=== PATIENT | female | born 1980 | race Caucasian/White ===

== ENCOUNTER 2017-07-26 01:12 | Emergency (ER) | payer MEDICAID, SELFPAY ==
[2017-07-26 01:14] VITALS: BP 154/97; PULSE 112; RESP 18; TEMP 36.8; O2SAT 99; BMI 42.5
--- NOTE | 2017-07-26 01:38 | ED.DCSUM_ITS ---
- ER Visit Summary Date of Service: 07/26/17 Chief Complaint: [] Eye discharge History of Present Illness: The patient is a 36 F [] complaining of right eye discharge beginning yesterday. Denies visual changes. Denies foreign object sensation. Denies injury to the eye. She is concerned that she has pinkeye. Physical Examination: [] HEENT reveals green-yellow discharge from the medial canthus consistent with bacterial conjunctivitis. Remainder of exam is unremarkable. Test Results: [] None. Emergency Department Course and Treatment: [] Patient provided bacitracin ophthalmic ointment in the emergency department to apply 3 times a day for 3 days. Treatment Plan: [] Follow-up with PCP. Disposition: [] Discharge, stable. Impression: [] Conjunctivitis This note was generated with [employer] dictation software. It may contain incorrect words, spelling, and punctuation that were not noted in review of the chart prior to signing ED Disposition - Plan for ED Patient: Chief Complaint: Eye Problem Referrals: Sneha Briceno DO [Primary Care Provider] -
--- NOTE | 2017-07-26 01:38 | ED.DEP ---
ED Disposition - Plan for ED Patient: Disposition: Home or Assisted Living Chief Complaint: Eye Problem Instructions: ED Conjunctivitis Bacterial Referrals: Sneha Briceno DO [Primary Care Provider] -
[2017-07-26 01:46] VITALS: RESP 16
== END 2017-07-26 01:56 | disposition home or self-care (01) ==
PROVIDERS: Emergency Provider Emergency Medicine; Family Provider Family Medicine; PCP Family Medicine
DX: H10.31 Unspecified acute conjunctivitis, right eye (principal); I10 Essential (primary) hypertension; E11.9 Type 2 diabetes mellitus without complications; Z79.4 Long term (current) use of insulin; Z79.899 Other long term (current) drug therapy
CPT/HCPCS: 99282

== ENCOUNTER 2017-08-02 01:32 | Emergency (ER) | payer MEDICAID, SELFPAY ==
[2017-08-02 01:33] VITALS: BP 146/89; PULSE 101; RESP 16; TEMP 36.9; O2SAT 98; BMI 43.8
--- NOTE | 2017-08-02 02:08 | ED.DCSUM_ITS ---
- ER Visit Summary Date of Service: 08/02/17 Chief Complaint: [Sore throat] History of Present Illness: The patient is a 36 F [presents to the emergency department with sore throat ?1 week. Patient initially started with a cough and conjunctivitis. Patient states she was seen in the emergency department a week ago and started on antibiotic eyedrops for conjunctivitis. Patient continues to complain of throat pain especially on the right side. Patient has pain with eating. She denies any fever. Cough is nonproductive. Patient denies sick contacts.] Physical Examination: [HEENT-PERRLA, EOMI. Cranial nerves II through XII grossly intact. TMs clear. Mucous membranes moist. Mild anterior cervical adenopathy. Minimal pharyngeal erythema. Tonsils are not enlarged and there are no exudates. Cardiovascular-regular rate and rhythm without murmur or ectopy Lungs-clear to auscultation, chest wall stable without crepitus or subcu emphysema Abdomen-normoactive bowel sounds, soft, nontender, no rebound or rigidity, no peritoneal signs. Extremities-intact ?4, normal range of motion, normal pulses, atraumatic] Test Results: Rapid strep screen was negative] Emergency Department Course and Treatment: [Patient will be dispensed for Tavernier for pain] Treatment Plan: [Advised use salt water gargles and ibuprofen for discomfort] Disposition: [Discharged to home in stable condition. Patient advised to follow -up with her primary care physician within the next 3-5 days.] Impression: [Pharyngitis-suspect viral] This note was generated with [employer] dictation software. It may contain incorrect words, spelling, and punctuation that were not noted in review of the chart prior to signing ED Disposition - Plan for ED Patient: Chief Complaint: Sore Throat Referrals: Sneha Briceno DO [Primary Care Provider] -
--- NOTE | 2017-08-02 02:08 | ED.DEP ---
ED Disposition - Plan for ED Patient: Chief Complaint: Sore Throat Instructions: ED Pharyngitis Viral Report Pending Referrals: Sneha Briceno DO [Primary Care Provider] - 3-5 Days
[2017-08-02 02:18] VITALS: BP 146/89; PULSE 101; RESP 16; TEMP 36.9; O2SAT 98
[2017-08-02] MEDS: HYDROcodone Bitartrate/Apap 5/325 Tablet PO (02:18)
== END 2017-08-02 02:21 | disposition home or self-care (01) ==
PROVIDERS: Emergency Provider Emergency Medicine; Family Provider Family Medicine; PCP Family Medicine
DX: J02.9 Acute pharyngitis, unspecified (principal); E11.9 Type 2 diabetes mellitus without complications; Z79.4 Long term (current) use of insulin
CPT/HCPCS: 87880; 99282

== ENCOUNTER 2017-08-25 12:20 | Emergency (ER) | payer MEDICAID, SELFPAY ==
[2017-08-25 12:21] VITALS: BP 151/105; PULSE 115; RESP 16; TEMP 36.8; O2SAT 97; BMI 43.0
--- NOTE | 2017-08-25 12:41 | ED.VISSUMM ---
- ER Visit Summary Date of Service: 08/25/17 Chief Complaint: Left lower back pain History of Present Illness: The patient is a 36 F who presents because of left lower back pain for 2 weeks. There is no history of trauma. She complains of pain radiating down the left leg. She did not answer promptly with regards to if the pain radiated anteriorly, laterally, medially or posteriorly. The pain apparently goes to the midcalf. She denies quadricep weakness or footdrop. She denies bowel bladder dysfunction. She denies saddle paresthesia or anesthesia. She was seen in urgent care last week and placed on ibuprofen and Flexeril without improvement. Pain is worse with movement. Other than prior back strain she has no history of back problems. She denies any night sweats. She denies weight loss. Physical Examination: Vitals remarkable for blood pressure 151/105 heart rate 115. BMI is 43. She appears upset at the fact that I asked her as many questions as I did. HEENT exam is unremarkable. Heart is regular without murmur, gallop or rub. S1 and S2 are normal. Lungs are clear to auscultation with good movement of air bilaterally. Examination of low back reveals a tattoo. There is no tenderness. There is no lesions. Straight leg test is negative. Crossover test is negative. Patella and ankle reflex are 1+. EHL is intact. No Babinski or clonus was noted bilaterally. DP pulses palpable bilateral. Patient gait was observed. There is no foot drop. He is able to walk on her heels and toes. Test Results: None are indicated Emergency Department Course and Treatment: Anti-inflammatories since there is no contraindication Treatment Plan: Rest, ice anti-inflammatory and weight reduction Disposition: Discharged to home to follow-up with PCP Impression: Left lower back pain a muscular etiology/muscle strain This note was generated with [employer] dictation software. It may contain incorrect words, spelling, and punctuation that were not noted in review of the chart prior to signing ED Disposition - Plan for ED Patient: Disposition: Home or Assisted Living Chief Complaint: Back Instructions: ED Sprain Strain Lumbar, ED Hypertension Poss Prescriptions: Naproxen [Naprosyn] 500 mg PO BID #14 tab Referrals: Senha Briceno DO [Primary Care Provider] - 1-2 Weeks Additional Instructions: Your blood pressure is elevated and you need to have your blood pressure reassessed in 1-2 weeks.
[2017-08-25 12:55] VITALS: BP 155/106
== END 2017-08-25 13:05 | disposition home or self-care (01) ==
PROVIDERS: Emergency Provider Emergency Medicine; Family Provider Family Medicine; PCP Family Medicine
DX: S39.012A Strain of muscle, fascia and tendon of lower back, initial encounter (principal); X58.XXXA Exposure to other specified factors, initial encounter; Y93.9 Activity, unspecified; Y92.9 Unspecified place or not applicable; R03.0 Elevated blood-pressure reading, without diagnosis of hypertension; E11.9 Type 2 diabetes mellitus without complications; E66.9 Obesity, unspecified; Z68.41 Body mass index [BMI] 40.0-44.9, adult; Z79.4 Long term (current) use of insulin; Z79.899 Other long term (current) drug therapy
CPT/HCPCS: 99282

== ENCOUNTER 2017-10-09 21:15 | Emergency (ER) | payer MEDICAID, SELFPAY ==
--- NOTE | 2017-10-09 13:36 | EKG12_ITS ---
Test Reason : CP Blood Pressure : / mmHG Vent. Rate : 107 BPM Atrial Rate : 107 BPM P-R Int : 154 ms QRS Dur : 082 ms QT Int : 340 ms P-R-T Axes : 031 007 043 degrees QTc Int : 453 ms Sinus tachycardia Otherwise normal ECG Confirmed by TOÑO HARRIS, YOSELIN ([id number]), editor continuity and script MIESHA WOLF ([id number]) on 10/15/2017 5:27:10 PM Referred By: BRANDON/AIDEN Confirmed By:YOSELIN LUNDBERG MD
--- NOTE | 2017-10-09 21:15 | DT_ITS ---
This patient was seen during an EMR downtime October 06, 2017 - October 13, 2017. This patient may have a combination of paper and electronic documentation or all paper documentation. All documentation is viewable within the e-chart portion of [employer] for each patient visit.
--- NOTE | 2017-10-09 21:49 | RAD_ITS ---
STUDY: X-RAY CHEST REASON FOR EXAM: Female, 36 years old. Having chest pains on and off x 1week TECHNIQUE: Single AP portable view of the chest. COMPARISON: None. FINDINGS: The lungs are clear and expanded. There is no demonstrated pleural abnormality. Normal size heart. Normal mediastinum and leesa. Normal visualized pulmonary arteries. Normal visualized aortic arch and descending thoracic aorta. Normal visualized thoracic spine. Normal visualized ribs, clavicles, and shoulders. There is no demonstrated abnormality of the visualized soft tissue structures of the upper abdomen. IMPRESSION: Normal x-ray examination of the chest. Electronically Signed: Dipesh Lewis MD at 21:59 EDT , Service support , STUDY: X-RAY - ABDOMEN REASON FOR EXAM: Female, 36 years old. Having chest pains on and off x 1week TECHNIQUE: Single AP view of the abdomen -upper abdomen. COMPARISON: None. FINDINGS: Normal visualized lung bases. There is an unremarkable bowel gas pattern. There is no demonstrated free abdominal air. The visualized liver, spleen and kidneys are grossly normal in size and morphology. Normal soft tissue structures. Normal visualized osseous structures. RAD/Chest PA and Lateral IMPRESSION: Normal x-ray examination of the abdomen Electronically Signed: Dipesh Lewis MD at 22:00 EDT , Service support ,
[2017-10-15 09:49] LABS: Hematocrit 41.2 % (37-47); Hemoglobin 13.6 g/dl (12.0-15.0); Mean Corpuscular Hgb 26.6 pg (27.0-32.0); Mean Corpuscular Volume 80.5 fL (81-99); Mean Platelet Vol. 9.8 fl (6.2-12.0); Neutrophil % 42.9 % (47-70); POSITIVE COUNT NO; POSITIVE DIFFERENTIAL NO; POSITIVE MORPHOLOGY NO; Platelet Count 207 K/mm3 (150-450); RBC Distribution Width CV 14.1 % (11.6-14.6); RBC Distribution Width SD 41.3 fl (35.1-43.9); Red Blood Count 5.12 M/mm3 (4.2-5.4); White Blood Count 7.3 K/mm3 (4.4-11.0)
[2017-10-15 09:50] LABS: Absolute Lymphocyte Count 3.56 X10^3/ul (0.83-4.51); Absolute Neutrophil Count 3.1 X10^3/uL (2.0-7.7); Basophil# 0.01 X10^3/uL; Basophil% 0.1 % (0-1); Eosinophil# 0.05 X10^3/uL; Eosinophils% 0.7 % (0-5); Lymphocyte # 3.56 X10^3/ul (4.0); Monocyte% 6.9 % (0-10); Neutrophil # 3.12 X10^3/uL (2.7-7.7)
[2017-10-15 10:23] LABS: Anion Gap 10 (5-15); BUN 9 mg/dL (7-18); BUN/Creat Ratio 15.8 RATIO (10-20); Calcium,Total 8.7 mg/dL (8.5-10.1); Chloride 106 mmol/L (98-107); Creatinine, Serum 0.57 mg/dL (0.55-1.02); EST Glomerular Filtration Rate 129 mL/min (>60); Est Glom Filt Rate - Afr Amer 156 mL/min (>60); Glucose 153 mg/dL (74-106); Potassium 3.9 mmol/L (3.5-5.1); Sodium Level 142 mmol/L (136-145)
== END 2017-10-09 23:30 | disposition home or self-care (01) ==
LOC: ED 10-14 11:16
PROVIDERS: Emergency Provider Emergency Medicine; Family Provider Family Medicine; PCP Family Medicine
DX: R07.89 Other chest pain (principal); R11.0 Nausea; R20.2 Paresthesia of skin; R06.00 Dyspnea, unspecified; E66.9 Obesity, unspecified; E11.9 Type 2 diabetes mellitus without complications; F17.210 Nicotine dependence, cigarettes, uncomplicated; Z79.4 Long term (current) use of insulin
CPT/HCPCS: 71046; 80048; 84484; 85025; 93005; 99284

== ENCOUNTER 2017-12-07 16:24 | Emergency (ER) | payer MEDICAID, SELFPAY ==
[2017-12-07 16:26] VITALS: BP 163/91; PULSE 108; RESP 17; TEMP 36.9; O2SAT 97; BMI 39.2
--- NOTE | 2017-12-07 16:45 | CT_ITS ---
STUDY: CT ABDOMEN AND PELVIS WITHOUT CONTRAST REASON FOR EXAM: Female, 37 years old. Abdominal pain. RADIATION DOSAGE (If Supplied By Facility): CTDIvol = ( 22.31 ) mGy, DLP = ( 1270.81 ) mGycm TECHNIQUE: Transaxial images were obtained from the dome of the diaphragm to the symphysis pubis without oral contrast, and without intravenous contrast. Sagittal and coronal images were reconstructed. Individualized dose optimization techniques were used for this CT. COMPARISON: December 13, 2015 FINDINGS: The visualized lung bases are unremarkable. The visualized portions of the heart are within normal limits. There is decreased attenuation of the liver consistent with steatosis. There is hepatomegaly. There is a gallstone within the gallbladder. There is mild stable splenomegaly. Normal pancreas. Normal bilateral adrenal glands. Normal right kidney. Normal left kidney. Normal visualized stomach. Normal small intestine. Normal colon. There is non-visualization of the appendix. Normal abdominal aorta. Normal inferior vena cava. Normal retroperitoneum. Normal urinary bladder. Normal abdominal wall. There are diffuse degenerative changes of the visualized lumbar spine. CT/Abdomen/Pelvis without Cont IMPRESSION: Fatty infiltration of the liver associated with hepatomegaly. Stable mild splenomegaly. Cholelithiasis. Electronically Signed: Sangeeta Mantilla MD at 18:16 EDT Tel , Service support ,
--- NOTE | 2017-12-07 16:48 | ED.DCSUM_ITS ---
- ER Visit Summary Date of Service: 12/07/17 Chief Complaint: Abdominal pain History of Present Illness: The patient is a 37 F with right-sided abdominal pain for the past 4 hours. Patient initially describes right upper flank pain that is now the right lower quadrant. She denies nausea, vomiting, or diarrhea. She denies fever or chills. She denies urinary symptoms. Patient has had no prior abdominal surgeries. Physical Examination: Blood pressure is 163/91 temperature 98.5, heart rate 108 , respiratory rate 17, pulse ox 97% on room air. Patient sitting upright in bed. She is in no acute distress. Head neck examination normal. Heart is regular rate and rhythm. Lung sounds are clear. Abdomen is soft with mild tenderness in the right lower quadrant. There is no guarding or rebound. Back examination reveals no CVA tenderness. Test Results: CBC and chemistry studies are unremarkable. Urinalysis does show 25-50 white cells with 2+ bacteria. test is negative. CT flank reveals fatty liver and cholelithiasis. They do not see any changes around the right kidney. Emergency Department Course and Treatment: Patient treated Toradol, Zofran, and IV fluids. On repeat evaluation she does feel improved. She be treated with a course of Bactrim. Treatment Plan: [] Disposition: Discharge Impression: Cystitis This note was generated with [employer] dictation software. It may contain incorrect words, spelling, and punctuation that were not noted in review of the chart prior to signing ED Disposition - Plan for ED Patient: Chief Complaint: Abd Pain Referrals: Sneha Briceno DO [Primary Care Provider] -
[2017-12-07] MEDS: Ondansetron 4 MG/2 ML Vial IV (16:58)
[2017-12-07] MEDS: Ketorolac 30 MG/ML Syringe IV (16:58)
[2017-12-07 16:59] LABS: Mucous, Urine 0 SEEN /hpf (<or=2+); Red Blood Cells-Urine 0 SEEN /hpf (0-5)
[2017-12-07] MEDS: 0.9% Normal Saline 1,000 ML 150 ML IV (16:59)
[2017-12-07 17:07] LABS: Absolute Lymphocyte Count 2.26 X10^3/ul (0.83-4.51); Absolute Neutrophil Count 4.6 X10^3/uL (2.0-7.7); Basophil# 0.01 X10^3/uL; Basophil% 0.1 % (0-1); Color, Urine Yellow (Yellow); Eosinophil# 0.06 X10^3/uL; Eosinophils% 0.8 % (0-5); Glucose, Dipstick 250 mg/dl (Normal); Hematocrit 40.7 % (37-47); Hemoglobin 13.1 g/dl (12.0-15.0); Ketone-Dipstick 5 mg/dl (Negative); Leukocyte Esterase-Dipstick 500 /ul (Negative); Lymphocyte # 2.26 X10^3/ul (4.0); Lymphocyte % 30.9 % (19-41); Mean Corp Hgb Conc 32.2 g/gl (32-36); Mean Corpuscular Hgb 26.5 pg (27.0-32.0); Mean Corpuscular Volume 82.4 fL (81-99); Mean Platelet Vol. 10.4 fl (6.2-12.0); Monocyte% 5.5 % (0-10); Neutrophil # 4.56 X10^3/uL (2.7-7.7); Neutrophil % 62.3 % (47-70); Nitrite-Dipstick Negative (Negative); Occult Blood-Urine 10 /ul (Negative); POSITIVE COUNT NO; POSITIVE DIFFERENTIAL NO; POSITIVE MORPHOLOGY NO; Platelet Count 203 K/mm3 (150-450); Protein-Dipstick 15 mg/dl (Negative); RBC Distribution Width CV 14.3 % (11.6-14.6); RBC Distribution Width SD 42.8 fl (35.1-43.9); Red Blood Count 4.94 M/mm3 (4.2-5.4); Specific Gravity, Urine 1.025 (1.002-1.030); Urine Bilirubin Dipstick Negative (Negative); Urine Clarity Sl. Cloudy (Clear); Urine Urobilinogen Normal (Normal); White Blood Count 7.3 K/mm3 (4.4-11.0)
[2017-12-07 17:09] LABS: Internal QC Validated? YES +Cl - CLEAR BKGD; Pregnancy, Urine Negative Negative
[2017-12-07 17:17] LABS: Anion Gap 6 (5-15); BUN 16 mg/dL (7-18); BUN/Creat Ratio 26.6 RATIO (10-20); Chloride 108 mmol/L (98-107); EST Glomerular Filtration Rate 120 mL/min (>60); Est Glom Filt Rate - Afr Amer 146 mL/min (>60); Estimated Creatinine Clearance 136.77 ml/min; Glucose 136 mg/dL (74-106); Sodium Level 141 mmol/L (136-145)
[2017-12-07 17:51] LABS: Bacteria 2+ /hpf (None Seen); Squamous Epithelial Cells - UA 10-25 SEEN /hpf (5-10); Transitional Epithelial - Ur 0-5 SEEN /hpf (0-5); White Blood Cells 25-50 SEEN /hpf (0-5)
--- NOTE | 2017-12-07 18:31 | ED.DEP ---
ED Disposition - Plan for ED Patient: Disposition: Home or Assisted Living Chief Complaint: Abd Pain Instructions: ED UTI Cystitis Female Prescriptions: Smz/Tmp Ds [Bactrim Ds] 1 tablet PO BID #6 tablet Referrals: Sneha rBiceno DO [Primary Care Provider] - 5-7 Days
[2017-12-07 18:33] VITALS: BP 138/76; PULSE 78; RESP 18; O2SAT 99
[2017-12-07] MEDS: Smz/Tmp Ds Tablet 1 TABLET PO (18:39)
== END 2017-12-07 18:40 | disposition home or self-care (01) ==
PROVIDERS: Emergency Provider Emergency Medicine; Family Provider Family Medicine; PCP Family Medicine
DX: N30.90 Cystitis, unspecified without hematuria (principal); B96.89 Other specified bacterial agents as the cause of diseases classified elsewhere; Z72.0 Tobacco use
CPT/HCPCS: 74176; 80048; 81001; 81025; 85025; 96361; 96374; 96375; 99284; J7030; A4216; J2405

== ENCOUNTER 2018-01-29 09:52 | Emergency (ER) | payer MEDICAID, SELFPAY ==
[2018-01-29 09:53] VITALS: BP 160/97; PULSE 73; RESP 18; TEMP 36.6; O2SAT 100; BMI 38.6
--- NOTE | 2018-01-29 10:03 | RAD_ITS ---
STUDY: X-RAY - PELVIS AND RIGHT HIP REASON FOR EXAM: Female, 37 years old. Several day history of pain. No known injury. TECHNIQUE: Radiological exam, hip, unilateral, with pelvis when performed; 2 or 3 views. COMPARISON: None. FINDINGS: There is a non-specific bowel gas pattern. Normal visualized soft tissue structures. Normal bilateral iliac wings, sacroiliac joints and visualized sacrum. Normal bilateral superior and inferior pubic rami. Normal pubic symphysis. Normal bilateral ischial tuberosities. Normal visualized femoral head. Normal acetabulum. Normal hip joint. RAD/HIP, UNI W/ Pelvis 2-3 Views IMPRESSION: Normal x-ray examination of the pelvis and hip. Electronically Signed: Ismael Eubanks MD at 10:30 EDT Tel [phone], Service support ,
--- NOTE | 2018-01-29 10:04 | ED.VISSUMM ---
- ER Visit Summary Date of Service: 01/29/18 Chief Complaint: Right hip and groin pain History of Present Illness: The patient is a 37 F who is an insulin-dependent diabetic with history of lumbar radiculopathy presents to the emergency department with increasing right hip and groin pain. Patient states that she is out of for the past 2 weeks. She states that over the past few days, the pain is gotten more constant. She states is worse when she bears weight or moves her hip. She denies any fevers or chills. She denies any trauma to the area. She denies any abdominal pain. She had no urinary symptoms, nausea, vomiting, or vaginal discharge. She has not found anything besides rest that is really improved the pain. Physical Examination: Vital signs reviewed General: Well-nourished, well-developed Head: Normocephalic, atraumatic Eyes: Pupils equal and reactive, extraocular muscles intact Neck, supple, no lymphadenopathy Heart: Regular rate and rhythm Respiratory: No distress, clear bilaterally Abdomen: Soft, nontender, nondistended, no peritoneal signs Back: Nontender Extremities: Nontender, no edema, no cords, 2+ symmetric lower extremity pulses, 2+ reflexes, no pain with logroll or small arc range of motion of the hip Skin: Normal color no rash Neuro: Alert and oriented, no focal or lateralizing deficits Test Results: [] Emergency Department Course and Treatment: The patient symptoms do seem entirely muscular. She has normal pulses. There is no skin change. She has a normal gait. I did obtain plain films which are unremarkable. I also obtained a urine which does show some evidence of infection. The patient was treated with 3 days of Bactrim. She will be started on anti-inflammatories. She was counseled on concerning symptoms. At this time, I do feel that she is safe for discharge. Treatment Plan: [] Disposition: Discharge Impression: 1. Right hip bursitis 2. Acute cystitis This note was generated with [employer] dictation software. It may contain incorrect words, spelling, and punctuation that were not noted in review of the chart prior to signing ED Disposition - Plan for ED Patient: Chief Complaint: Other, Pain/Inj Instructions: ED Bursitis, ED UTI Cystitis Female Prescriptions: Naproxen [Naprosyn] 500 mg PO BID PRN #20 tab Smz/Tmp Ds [Bactrim Ds] 1 tab PO BID #6 tab Referrals: Sneha Briceno DO [Primary Care Provider] -
[2018-01-29 10:37] LABS: Mucous, Urine 0 SEEN /hpf (<or=2+); Red Blood Cells-Urine 0 SEEN /hpf (0-5)
[2018-01-29 10:42] LABS: Color, Urine Yellow (Yellow); Glucose, Dipstick 250 mg/dl (Normal); Ketone-Dipstick 5 mg/dl (Negative); Leukocyte Esterase-Dipstick 500 /ul (Negative); Nitrite-Dipstick Negative (Negative); Occult Blood-Urine Negative /ul (Negative); Protein-Dipstick 15 mg/dl (Negative); Specific Gravity, Urine 1.025 (1.002-1.030); Urine Bilirubin Dipstick Negative (Negative); Urine Clarity Sl. Cloudy (Clear); Urine Urobilinogen Normal (Normal)
[2018-01-29 10:45] LABS: Internal QC Validated? YES +Cl - CLEAR BKGD; Pregnancy, Urine Negative Negative
[2018-01-29 10:48] LABS: Squamous Epithelial Cells - UA 0-5 SEEN /hpf (5-10); White Blood Cells 10-25 SEEN /hpf (0-5)
[2018-01-29 10:49] LABS: Bacteria RARE /hpf (None Seen)
[2018-01-29 10:57] VITALS: PULSE 80; RESP 17; O2SAT 100
== END 2018-01-29 10:57 | disposition home or self-care (01) ==
LOC: ED 10:42
PROVIDERS: Emergency Provider Emergency Medicine; Family Provider Family Medicine; PCP Family Medicine
DX: M70.71 Other bursitis of hip, right hip (principal); Y93.9 Activity, unspecified; N30.00 Acute cystitis without hematuria; B96.89 Other specified bacterial agents as the cause of diseases classified elsewhere; E11.9 Type 2 diabetes mellitus without complications; E66.9 Obesity, unspecified; Z68.38 Body mass index [BMI] 38.0-38.9, adult; Z79.4 Long term (current) use of insulin; Z79.899 Other long term (current) drug therapy; Z72.0 Tobacco use
CPT/HCPCS: 73502; 81001; 81025; 99282

== ENCOUNTER 2018-02-18 21:46 | Emergency (ER) | payer MEDICAID, SELFPAY ==
[2018-02-18 21:47] VITALS: BP 148/96; PULSE 89; RESP 20; TEMP 37; O2SAT 98; BMI 40.0
[2018-02-18] MEDS: Ketorolac 60 MG/2 ML Vial IM (22:15)
[2018-02-18 22:22] LABS: Bacteria 0 SEEN /hpf (None Seen); Mucous, Urine 0 SEEN /hpf (<or=2+); Squamous Epithelial Cells - UA 0 SEEN /hpf (5-10)
[2018-02-18 22:27] LABS: Color, Urine Yellow (Yellow); Glucose, Dipstick 100 mg/dl (Normal); Ketone-Dipstick Negative (Negative); Leukocyte Esterase-Dipstick 25 /ul (Negative); Nitrite-Dipstick Negative (Negative); Occult Blood-Urine 10 /ul (Negative); Protein-Dipstick Negative (Negative); Specific Gravity, Urine 1.025 (1.002-1.030); Urine Bilirubin Dipstick Negative (Negative); Urine Clarity Sl. Cloudy (Clear); Urine Urobilinogen Normal (Normal)
[2018-02-18 22:29] LABS: Internal QC Validated? YES +Cl - CLEAR BKGD; Pregnancy, Urine Negative Negative
[2018-02-18 22:37] LABS: Red Blood Cells-Urine 0-5 SEEN /hpf (0-5); White Blood Cells 0-5 SEEN /hpf (0-5)
--- NOTE | 2018-02-18 22:50 | ED.VISSUMM ---
- ER Visit Summary Date of Service: 02/18/18 Chief Complaint: Right groin pain History of Present Illness: The patient is a [address] Briceno. She complains of right groin pain began approximate 1 month ago. It is a continuous dull pain. Zeta 10 at worst and 6 out of 10 currently. Is worsened by moving from a sitting to standing position or getting out of her vehicle. Is relieved by nothing. She denies any associated nausea, vomiting, or diarrhea. Her last bowel was today. She had no melena or hematochezia. No dysuria or frequency. No vaginal bleeding or discharge. Her last menstrual period was 3 weeks ago. Physical Examination: Vitals: Stable. Afebrile. General: Well-nourished and well-developed. Head: Normocephalic atraumatic. Neck: Supple, no lymphadenopathy. No JVD. Nontender. Cardiovascular: Regular rate and rhythm. No murmurs. Respiratory: No respiratory distress. Clear to auscultation bilaterally. Abdominal: Soft, nontender, nondistended, normal bowel sounds. No guarding, rebound, or peritoneal signs. Back: Nontender. Extremities: Mild tenderness palpation over the right inguinal region. There is no abdominal tenderness. She has no pain with external or internal rotation of her hip. She is neurovascular intact distal this. No edema. Skin: Normal color, no rash. Neurologic: Alert and oriented ?3. Cranial nerves II through XII are intact. Normal strength and sensation. Psych: Normal affect. Test Results: UA and test were negative. Emergency Department Course and Treatment: Patient was treated Toradol IM. She is resting comfortably. Treatment Plan: Patient will be discharged on naproxen instructed to follow-up Dr. Briceno tomorrow as previously scheduled. I did discuss with her that this is likely muscular in etiology. Return to the emergency department for any worsening symptoms. Disposition: To home in improved and stable condition. Impression: 1. Right groin pain, chronic. This note was generated with [employer] dictation software. It may contain incorrect words, spelling, and punctuation that were not noted in review of the chart prior to signing ED Disposition - Plan for ED Patient: Disposition: Home or Assisted Living Chief Complaint: Abd Pain Instructions: ED Sprain Hip Prescriptions: Naproxen [Naprosyn] 500 mg PO BID #14 tablet Referrals: Sneha Briceno, [Primary Care Provider] - Keep Roseline appointment
== END 2018-02-18 22:56 | disposition home or self-care (01) ==
LOC: ED 22:16
PROVIDERS: Emergency Provider Emergency Medicine; Family Provider Family Medicine; PCP Family Medicine
DX: R10.31 Right lower quadrant pain (principal); G89.29 Other chronic pain; E11.9 Type 2 diabetes mellitus without complications; F32.9 Major depressive disorder, single episode, unspecified; Z79.4 Long term (current) use of insulin; Z79.899 Other long term (current) drug therapy
CPT/HCPCS: 81001; 81025; 96372; 99282

== ENCOUNTER 2018-04-01 12:22 | Emergency (ER) | payer MEDICAID, SELFPAY ==
[2018-04-01 12:23] VITALS: BP 132/101; PULSE 149; RESP 17; TEMP 36.5; O2SAT 100; BMI 37.3
[2018-04-01] MEDS: Ondansetron 4 MG/2 ML Vial IV (12:51)
[2018-04-01] MEDS: 0.9% Normal Saline 1,000 ML 1000 ML IV ×2 (12:51)
[2018-04-01 13:00] LABS: Absolute Lymphocyte Count 2.51 X10^3/ul (0.83-4.51); Basophil# 0.04 X10^3/uL; Basophil% 0.5 % (0-1); Eosinophil# 0.28 X10^3/uL; Eosinophils% 3.2 % (0-5); Hemoglobin 14.6 g/dl (12.0-15.0); Lymphocyte # 2.51 X10^3/ul (4.0); Lymphocyte % 28.6 % (19-41); Mean Corp Hgb Conc 32.4 g/gl (32-36); Mean Corpuscular Hgb 26.5 pg (27.0-32.0); Mean Corpuscular Volume 81.7 fL (81-99); Mean Platelet Vol. 10.8 fl (6.2-12.0); Monocyte# 0.93 X10^3/uL; Monocyte% 10.6 % (0-10); Neutrophil # 4.99 X10^3/uL (2.7-7.7); Neutrophil % 56.6 % (47-70); Platelet Count 257 K/mm3 (150-450); RBC Distribution Width CV 14.4 % (11.6-14.6); RBC Distribution Width SD 42.9 fl (35.1-43.9); Red Blood Count 5.51 M/mm3 (4.2-5.4); White Blood Count 8.8 K/mm3 (4.4-11.0)
[2018-04-01 13:01] LABS: POSITIVE COUNT NO; POSITIVE DIFFERENTIAL NO; POSITIVE MORPHOLOGY NO
[2018-04-01 13:07] LABS: BUN 10 mg/dL (7-18); Creatinine, Serum 0.61 mg/dL (0.55-1.02); EST Glomerular Filtration Rate 119 mL/min (>60); Estimated Creatinine Clearance 129.85 ml/min; Glucose 160 mg/dL (74-106)
[2018-04-01 13:08] LABS: ALB/GLOB Ratio 0.9 RATIO (0.9-2.4); AST(SGOT) 12 U/L (15-37); Alanine Aminotransfer ALT/SGPT 33 U/L (13-56); Albumin, Serum 3.8 g/dL (3.2-5.0); Alkaline Phosphatase 54 U/L (45-117); Anion Gap 8 (5-15); BUN/Creat Ratio 16.4 RATIO (10-20); Calcium,Total 8.4 mg/dL (8.5-10.1); Chloride 111 mmol/L (98-107); Est Glom Filt Rate - Afr Amer 144 mL/min (>60); Globulin 4.4 g/dL (2.2-4.2); Lipase 66 U/L (73-393); Potassium 3.4 mmol/L (3.5-5.1); Protein, Total 8.2 g/dL (6.4-8.2); Sodium Level 140 mmol/L (136-145)
[2018-04-01 13:26] LABS: Pregnancy, Serum, hCG Quali. NEGATIVE Negative (0-9 Nonpreg)
[2018-04-01] MEDS: proMETHazine 25 MG/ML Syringe 12.5 MG IV (14:10)
[2018-04-01 14:18] VITALS: BP 132/94; PULSE 97; RESP 18; O2SAT 99
[2018-04-01 14:31] LABS: Color, Urine Yellow (Yellow); Glucose, Dipstick 50 mg/dl (Normal); Ketone-Dipstick 5 mg/dl (Negative); Leukocyte Esterase-Dipstick 25 /ul (Negative); Nitrite-Dipstick Negative (Negative); Occult Blood-Urine 10 /ul (Negative); Protein-Dipstick 30 mg/dl (Negative); Urine Bilirubin Dipstick Negative (Negative); Urine Clarity Sl. Cloudy (Clear); Urine Urobilinogen Normal (Normal)
--- NOTE | 2018-04-01 14:32 | ED.VISSUMM ---
- ER Visit Summary Date of Service: 04/01/18 Chief Complaint: Sick History of Present Illness: The patient is a 37 F who is not feeling well over the past 3 days. She has had nausea, vomiting, diarrhea, and abdominal pain. The abdominal pain is over her lower abdomen in the middle and slightly worse on the left. She has had 1-2 episodes of vomiting per day and 10 or more episodes of diarrhea per day. No bleeding. No fevers. No rash. No recent travel or hospitalization. No recent antibiotics. No surgical history. Physical Examination: Afebrile and vital signs unremarkable except for heart rate of 149. The patient appears uncomfortable but not toxic or in distress. Skin appears normal. Heart tachycardic but regular. Lungs clear. Abdomen soft and nontender. Test Results: CBC normal. Potassium 3.4 and chloride 111. Glucose 160, AST 12 and lipase 66. test negative. Urinalysis pending. Imaging is not indicated. Emergency Department Course and Treatment: Patient was treated with fluids and Zofran IV while awaiting results. On reevaluation, she had continued nausea but no further vomiting or diarrhea. She was treated with Phenergan. She was able to produce urine. Repeat blood pressure 132/94 and heart rate 97. Urinalysis showed signs of infection. She was treated with Macrobid and she also received a prescription for Phenergan. Treatment Plan: As above Disposition: Discharged Impression: 1. Nausea vomiting 2. Diarrheal illness 3. UTI This note was generated with [employer] dictation software. It may contain incorrect words, spelling, and punctuation that were not noted in review of the chart prior to signing ED Disposition - Plan for ED Patient: Chief Complaint: Abd Pain Referrals: Sneha Briceno DO [Primary Care Provider] -
--- NOTE | 2018-04-01 14:35 | ED.DCSUM_ITS ---
- ER Visit Summary Date of Service: 04/01/18 Chief Complaint: Sick History of Present Illness: The patient is a 37 F who is not feeling well over the past 3 days. She has had nausea, vomiting, diarrhea, and abdominal pain. The abdominal pain is over her lower abdomen in the middle and slightly worse on the left. She has had 1-2 episodes of vomiting per day and 10 or more episodes of diarrhea per day. No bleeding. No fevers. No rash. No recent travel or hospitalization. No recent antibiotics. No surgical history. Physical Examination: Afebrile and vital signs unremarkable except for heart rate of 149. The patient appears uncomfortable but not toxic or in distress. Skin appears normal. Heart tachycardic but regular. Lungs clear. Abdomen soft and nontender. Test Results: CBC normal. Potassium 3.4 and chloride 111. Glucose 160, AST 12 and lipase 66. test negative. Urinalysis pending. Imaging is not indicated. Emergency Department Course and Treatment: Patient was treated with fluids and Zofran IV while awaiting results. On reevaluation, she had continued nausea but no further vomiting or diarrhea. She was treated with Phenergan. She was able to produce urine. Repeat blood p ressure 132/94 and heart rate 97. Urinalysis showed signs of infection. She was treated with Macrobid and she also received a prescription for Phenergan. Treatment Plan: As above Disposition: Discharged Impression: 1. Nausea vomiting 2. Diarrheal illness 3. UTI This note was generated with [employer] dictation software. It may contain incorrect words, spelling, and punctuation that were not noted in review of the chart prior to signing ED Disposition - Plan for ED Patient: Chief Complaint: Abd Pain Referrals: Sneha Briceno DO [Primary Care Provider] -
[2018-04-01 14:41] LABS: Bacteria 1+ /hpf (None Seen); Mucous, Urine 4+ /hpf (<or=2+); Red Blood Cells-Urine 0-5 SEEN /hpf (0-5); Squamous Epithelial Cells - UA 0-5 SEEN /hpf (5-10); White Blood Cells 5-10 SEEN /hpf (0-5)
--- NOTE | 2018-04-01 14:47 | ED.DEP ---
ED Disposition - Plan for ED Patient: Chief Complaint: Abd Pain Instructions: ED UTI Cystitis Female Prescriptions: proMETHazine tablet [Phenergan] 25 mg PO Q6H PRN PRN #10 tab PRN Reason: Nausea Nitrofurantoin Macrocrystals [Macrobid] 100 mg PO Q12 #10 cap Referrals: Sneha Briceno DO [Primary Care Provider] -
[2018-04-01] MEDS: Nitrofurantoin Macrocrystals 100 MG Capsule PO (15:18)
[2018-04-01 15:19] VITALS: BP 123/86; PULSE 90; RESP 17; O2SAT 100
--- OUTSIDE RECORDS SUMMARY | 2018-05-27 21:46 | XMS RPT_ITS ---
:1980 Author Organization [place] Support Name Relationship Address Phone [facility] Unavailable [address] + [place] [address] LARUE RUPERT Unavailable [address] + [place] [address] [facility] Unavailable [address] + [place] [address] [facility] Unavailable [address] + [place] [address] [facility] Unavailable [address] + [place] [address] [facility] Unavailable [address] + [place] [address] [facility] Unavailable [address] [phone] [place] [address] [facility] Unavailable [address] + [place] [address] [facility] Unavailable [address] [phone] [place] [address] [facility] Unavailable [address] + [place] [address] [facility] Unavailable [address] [phone] [place] [address] LARUE RUPERT Unavailable [address] + [place] [address] [facility] Unavailable [address] [phone] [place] [address] [facility] Unavailable [address] + [place] [phone] [facility] Unavailable [address] [phone] [place] [address] [facility] Unavailable [address] + [place] [address] [facility] Unavailable [address] [phone] [place] [address] [facility] Unavailable [address] + [place] [address] [facility] Unavailable [address] [phone] [place] [address] [facility] Unavailable [address] + [place] [address] [facility] Unavailable [address] [phone] [place] [address] [facility] Unavailable [address] + [place] [address] [facility] Unavailable [address] [phone] [place] [address] [facility] Unavailable [address] + [place] [address] [facility] Unavailable [address] [phone] [place] [address] [facility] Unavailable [address] + [place] [address] [facility] Unavailable [address] [phone] [place] [address] [facility] Unavailable [address] + [place] [address] Care Team Providers Name Role Phone Malys, Sneha Primary Care Unavailable Valerio Hurtado Attending Unavailable Malys, Sneha Primary Care Unavailable Lindsay Pennington Attending Unavailable Baltazar Tucker Attending Unavailable Malys, Sneha Referring Unavailable Malys, Sneha Primary Care Unavailable Malys, Sneha Primary Care Unavailable Kenneth Israel Attending Unavailable Kandis Juan D.C. Attending Unavailable Malys, Sneha Referring Unavailable Malys, Sneha Primary Care Unavailable Kandis Juan D.C. Attending Unavailable Kandis Juan D.C. Referring Unavailable Malys, Sneha Primary Care Unavailable DossiKandis cruz D.C. Attending Unavailable Malys, Sneha Referring Unavailable Malys, Sneha Primary Care Unavailable DossiKandis cruz D.C. Attending Unavailable Malys, Sneha Referring Unavailable Malys, Sneha Primary Care Unavailable DosKandis vila D.C. Attending Unavailable BRANDONDAMARI Attending Unavailable Malys, Sneha Primary Care Unavailable Malys, Sneha Primary Care Unavailable Liset Toth Attending Unavailable Malys, Sneha Primary Care Unavailable Pratik Almanza Attending Unavailable Malys, Sneha Primary Care Unavailable Terence Dodd Attending Unavailable Malys, Sneha Primary Care Unavailable Kris Mir Attending Unavailable PROBLEMS PROBLEMS DATE TYPE CONDITION / CODE ATTENDING STATUS SOURCE 10/31/2017 Unknown R07.9 - Chest BRANDON, DAMARI Active [place] pain, unspecified Community / R07.9(ICD-10) Hospital Repository 09/16/2017 Unknown M99.03 - Dossie, Kandis Active [place] [facility] dysfunction of Repository lumbar region / M99.03(ICD-10) 09/16/2017 Unknown M54.16 - Dossie, Kandis Active [place] [facility] Community lumbar region / Hospital M54.16(ICD-10) Repository 09/16/2017 Unknown M99.02 - Dossie, Kandis Active [place] [facility] dysfunction of Repository thoracic region / M99.02(ICD-10) PROCEDURES PROCEDURES No Procedure Records FoundRESULTS RESULTS EMERGENCY DEPARTMENT Observed: 04/01/2018 Status: F Source: [place] SUMMARY 4:14 PM [facility] REPOSITORY [facility] Medical Records Department [address] [place] [address] Emergency Department Summary 04/01/18 1432 MR#: [id number] Acct: [id number] Name: MIGUELITO WALDROP Rep #: [id number] : 1980 37 From: Kris Mir MD PCP: Sneha Briceno DO Status: DEP ER - ER Visit Summary Date of Service: 04/01/18 Chief Complaint: Sick History of Present Illness: The patient is a 37 F who is not feeling well over the past 3 days. She has had nausea, vomiting, diarrhea, and abdominal pain. The abdominal pain is over her lower abdomen in the middle and slightly worse on the left. She has had 1-2 episodes of vomiting per day and 10 or more episodes of diarrhea per day. No bleeding. No fevers. No rash. No recent travel or hospitalization. No recent antibiotics. No surgical history. Physical Examination: Afebrile and vital signs unremarkable except for heart rate of 149. The patient appears uncomfortable but not toxic or in distress. Skin appears normal. Heart tachycardic but regular. Lungs clear. Abdomen soft and nontender. Test Results: CBC normal. Potassium 3.4 and chloride 111. Glucose 160, AST 12 and lipase 66. test negative. Urinalysis pending. Imaging is not indicated. Emergency Department Course and Treatment: Patient was treated with fluids and Zofran IV while awaiting results. On reevaluation, she had continued nausea but no further vomiting or diarrhea. She was treated with Phenergan. She was able to produce urine. Repeat blood pressure 132/94 and heart rate 97. Urinalysis showed signs of infection. She was treated with Macrobid and she also received a prescription for Phenergan. Treatment Plan: As above Disposition: Discharged Impression: 1. Nausea vomiting 2. Diarrheal illness 3. UTI This note was generated with Proficient dictation software. It may contain incorrect words, spelling, and punctuation that were not noted in review of the chart prior to signing ED Disposition - Plan for ED Patient: Chief Complaint: Abd Pain Referrals: Sneha Briceno, [Primary Care Provider] - What to do if you have Problems For any increased pain, shortness of breath, bleeding, nausea or vomiting, chest pain, or any unexpected problems, contact your Primary Care Provider. Call [facility] ([phone]) or report to the closest Emergency Room. Call 911 if necessary. 04/01/18 6089 <Electronically signed by Kris Mir MD> Date Kris Mir MD Cosigner Signature (If Indicated): Date CC: Sneha Briceno DO DISCHARGE INSTRUCTION Observed: 04/01/2018 Status: F Source: [place] 4:14 PM [facility] REPOSITORY [facility] Medical Records Department [address] [address] Discharge Instruction 04/01/18 1447 MR#: [id number] Acct: [id number] Name: MIGUELITO WALDROP Rep #: [id number] : 1980 37 From: Kris Mir MD PCP: Sneha Briceno DO Status: DEP ER ED Disposition - Plan for ED Patient: Chief Complaint: Abd Pain Instructions: ED UTI Cystitis Female Prescriptions: proMETHazine tablet [Phenergan] 25 mg PO Q6H PRN PRN #10 tab PRN Reason: Nausea Nitrofurantoin Macrocrystals [Macrobid] 100 mg PO Q12 #10 cap Referrals: Sneha Briceno, [Primary Care Provider] - What to do if you have Problems For any increased pain, shortness of breath, bleeding, nausea or vomiting, chest pain, or any unexpected problems, contact your Primary Care Provider. Call [facility] ([phone]) or report to the closest Emergency Room. Call 911 if necessary. 04/01/18 1614 <Electronically signed by Kris Mir MD> Date Kris Mir MD Cosigner Signature (If Indicated): Date CC: Sneha Briceno URINALYSIS, COMPLETE Collected: 04/01/2018 Status: F Source: [place] 2:18 PM [facility] REPOSITORY Order Comment: Order Date: 04/01/18 How was Urine Obtained? CLEAN CATCH TYPE CODE TESTS RESULT OUT OF RANGE REFERENCE UNITS LAB L400.3000 Yellow COLOR Normal Yellow LAB L400.3050 Clear Normal CLARITY Sl. Cloudy LAB L400.3200 Normal mg/dl High 50 GLUCOSE, UR LAB L400.3300 Negative mg/dL Normal BILIRUBIN URINE Negative LAB L400.3400 Negative mg/dl High 5 KETONE UR LAB L400.3465 1.002-1.030 Normal SP.GR. DIPSTX 1.020 LAB L400.3550 5.0 - 8.0 pH UR Normal 6.0 LAB L400.3600 Negative mg/dl High PROT 30 DIPSTX LAB L400.3700 Normal mg/dl Normal UROBILI Normal LAB L400.3750 Negative Normal NITRITE UR Negative LAB L400.3780 Negative /ul High 10 OCCULT BLOOD-UR LAB L400.3800 Negative /ul High LEUK 25 ESTERASE LAB L400.4050 0-5 /hpf WBC Normal 5-10 SEEN LAB L400.4100 0-5 /hpf Normal RBC-UA 0-5 SEEN LAB L400.4150 5-10 /hpf SQUAM Normal EPI 0-5 SEEN LAB L400.4300 None Seen /hpf 1+ Normal BACTERIA LAB L400.4350 <or=2+ /hpf 4+ Normal MUCUS, URINE Performed By: #### L400.0001 #### [facility] [address] [place], [address] CBC W/DIFF, AUTOMATED Collected: 04/01/2018 Status: F Source: [place] 12:44 PM [facility] REPOSITORY TYPE CODE TESTS RESULT OUT OF RANGE REFERENCE UNITS LAB L100.1000 4.4-11.0 K/mm3 Normal WBC 8.8 LAB L100.1200 4.2-5.4 M/mm3 High RBC 5.51 LAB L100.1300 12.0-15.0 g/dl Normal HGB 14.6 LAB L100.1400 37-47 % Normal HCT 45.0 LAB L100.1500 81-99 fL Normal MCV 81.7 LAB L100.1600 27.0-32.0 pg Low MCH 26.5 LAB L100.1700 32-36 g/gl Normal MCHC 32.4 LAB L100.1810 11.6-14.6 % Normal RDW CV 14.4 LAB L100.1820 35.1-43.9 fl Normal RDW SD 42.9 LAB L100.1900 150-450 K/mm3 Normal PLT 257 LAB L100.2000 6.2-12.0 fl Normal MPV 10.8 LAB L100.2100 47-70 % Normal NEUT% 56.6 LAB L100.2200 19-41 % Normal LY% 28.6 LAB L100.2300 0-10 % High MONO% 10.6 LAB L100.2400 0-5 % Normal EO% 3.2 LAB L100.2500 0-1 % Normal BASO% 0.5 LAB L100.2550 0.0-0.9 % Normal IM GRAN % 0.500 Result Comment: IG% - Immature Granulocytes (promyelocytes, myelocytes and metamyelocytes) > 1% indicates that a LEFT SHIFT is Present. LAB L100.2620 2.0-7.7 X10 3/uL Normal Absolute Neut 5.0 LAB L100.2720 0.83-4.51 X10 3/ul Normal Absolute Lymph 2.51 Performed By: #### L100.0100 #### [facility] [address] [place], [address] COMPREHENSIVE METABOLIC Collected: 04/01/2018 Status: F Source: [facility] 12:44 PM [facility] REPOSITORY TYPE CODE TESTS RESULT OUT OF RANGE REFERENCE UNITS LAB L501.0100 74-106 mg/dL High GLU 160 Result Comment: Fasting Glucose result greater than or equal to 126 mg/dL suggests DIABETES MELLITUS per A.D.A. criteria. Please note revised GLUCOSE reference range effective 2017. LAB L501.1000 7-18 mg/dL Normal BUN 10 LAB L501.1100 0.55-1.02 mg/dL Normal CREAT,SERUM 0.61 Result Comment: The validity of the calculated GFR AND GFRAA in patients over 70 years has not been determined. Clinical correlation is essential. LAB L501.1110 >60 mL/min Normal EST GFR 119 Result Comment: Non- GFR Calc LAB L501.1115 >60 mL/min Normal EST GFR - AA 144 Result Comment: GFR Calc LAB L501.1255 ml/min Normal Estimated CRCL 129.85 LAB L501.1300 10-20 RATIO BUN/CRE Normal 16.4 LAB L501.1500 6.4-8. g/dL 2 T PROT Normal 8.2 LAB L501.1800 3.2-5. g/dL 0 ALB Normal 3.8 LAB L501.1950 2.2-4. g/dL High 2 GLOB 4.4 LAB L501.2000 0.9-2. RATIO 4 A/G Normal 0.9 LAB L501.2200 8.5-10 mg/dL Low .1 CA 8.4 LAB L501.4100 15-37 U/L Low AST 12 LAB L501.4305 45-117 U/L ALK P Normal 54 LAB L501.4405 13-56 U/L ALT Normal 33 LAB L501.4600 0.20-1 mg/dL .00 T BILI Normal 0.50 LAB L501.5300 136-14 mmol/L 5 NA Normal 140 LAB L501.5600 3.5-5. mmol/L Low 1 K 3.4 LAB L501.5900 98-107 mmol/L High CL 111 LAB L501.6100 21.0-3 mmol/L 2.0 CO2 Normal 21.0 LAB L501.6200 5-15 GAP Normal 8 Performed By: #### L500.4050, L501.2450 #### [facility] [address] [place], [address] LIPASE Collected: 04/01/2018 Status: F Source: [place] 12:44 PM [facility] REPOSITORY TYPE CODE TESTS RESULT OUT OF REFERENCE UNITS RANGE LAB L501.2450 73-393 U/L Low LIPASE 66 Performed By: #### L500.4050, L501.2450 #### [facility] [address] [place], [place], [address] ,SERUM,HCG QUALI. Collected: Status: F Source: [place] 04/01/2018 12:44 PM [facility] REPOSITORY TYPE CODE TESTS RESULT OUT OF REFERENCE UNITS RANGE LAB L700.7000 0-9 Nonpreg Negative Normal HCGSQUAL NEGATIVE LAB L700.6700 =>Qualitative mIU/mL Normal HCG Qual < 1 triggr Performed By: #### L700.6800 #### [facility] [address] [place], [address] EMERGENCY DEPARTMENT Observed: 02/18/2018 Status: F Source: [place] SUMMARY 11:19 PM [facility] REPOSITORY [facility] Medical Records Department [address] [place] [address] Emergency Department Summary 02/18/18 2250 MR#: [id number] Acct: [id number] Name: MIGUELITO WALDROP Rep #: [id number] : 1980 37 From: Terence Dodd MD PCP: Sneha Briceno DO Status: DEP ER - ER Visit Summary Date of Service: 02/18/18 Chief Complaint: Right groin pain History of Present Illness: The patient is a [address] Briceno. She complains of right groin pain began approximate 1 month ago. It is a continuous dull pain. Zeta 10 at worst and 6 out of 10 currently. Is worsened by moving from a sitting to standing position or getting out of her vehicle. Is relieved by nothing. She denies any associated nausea, vomiting, or diarrhea. Her last bowel was today. She had no melena or hematochezia. No dysuria or frequency. No vaginal bleeding or discharge. Her last menstrual period was 3 weeks ago. Physical Examination: Vitals: Stable. Afebrile. General: Well-nourished and well-developed. Head: Normocephalic atraumatic. Neck: Supple, no lymphadenopathy. No JVD. Nontender. Cardiovascular: Regular rate and rhythm. No murmurs. Respiratory: No respiratory distress. Clear to auscultation bilaterally. Abdominal: Soft, nontender, nondistended, normal bowel sounds. No guarding, rebound, or peritoneal signs. Back: Nontender. Extremities: Mild tenderness palpation over the right inguinal region. There is no abdominal tenderness. She has no pain with external or internal rotation of her hip. She is neurovascular intact distal this. No edema. Skin: Normal color, no rash. Neurologic: Alert and oriented 3. Cranial nerves II through XII are intact. Normal strength and sensation. Psych: Normal affect. Test Results: UA and test were negative. Emergency Department Course and Treatment: Patient was treated Toradol IM. She is resting comfortably. Treatment Plan: Patient will be discharged on naproxen instructed to follow-up Dr. Briceno tomorrow as previously scheduled. I did discuss with her that this is likely muscular in etiology. Return to the emergency department for any worsening symptoms. Disposition: To home in improved and stable condition. Impression: 1. Right groin pain, chronic. This note was generated with Proficient dictation software. It may contain incorrect words, spelling, and punctuation that were not noted in review of the chart prior to signing ED Disposition - Plan for ED Patient: Disposition: Home or Assisted Living Chief Complaint: Abd Pain Instructions: ED Sprain Hip Prescriptions: Naproxen [Naprosyn] 500 mg PO BID #14 tablet Referrals: Sneha Briceno, [Primary Care Provider] - Keep Roseline appointment What to do if you have Problems For any increased pain, shortness of breath, bleeding, nausea or vomiting, chest pain, or any unexpected problems, contact your Primary Care Provider. Call [facility] ([phone]) or report to the closest Emergency Room. Call 911 if necessary. 02/18/18 2319 <Electronically signed by Terence Dodd MD> Date Terence Dodd MD Cosigner Signature (If Indicated): Date CC: Sneha Briceno DO ,URINE Collected: 02/18/2018 Status: F Source: [place] 10:05 PM [facility] REPOSITORY TYPE CODE TESTS RESULT OUT OF REFERENCE UNITS RANGE LAB L400.8000 Negative Normal HCGUQUAL Negative Result Comment: Very dilute urine specimens, as indicated by a low specific gravity, may not contain special service representative levels of hCG. If is still suspected, a first morning urine specimen should be collected 48 hours later and tested. Performed By: #### L400.7600 #### [facility] [address] [place], [address] URINALYSIS, COMPLETE Collected: 02/18/2018 Status: F Source: [place] 10:05 PM [facility] REPOSITORY Order Comment: How was Urine Obtained? CLEAN CATCH TYPE CODE TESTS RESULT OUT OF RANGE REFERENCE UNITS LAB L400.3000 Yellow COLOR Normal Yellow LAB L400.3050 Clear Normal CLARITY Sl. Cloudy LAB L400.3200 Normal mg/dl High GLUCOSE, UR 100 LAB L400.3300 Negative mg/dL Normal BILIRUBIN URINE Negative LAB L400.3400 Negative mg/dl Normal KETONE UR Negative LAB L400.3465 1.002-1.030 Normal SP.GR. DIPSTX 1.025 LAB L400.3550 5.0 - 8.0 pH UR Normal 5.0 LAB L400.3600 Negative mg/dl PROT Normal DIPSTX Negative LAB L400.3700 Normal mg/dl Normal UROBILI Normal LAB L400.3750 Negative Normal NITRITE UR Negative LAB L400.3780 Negative /ul High 10 OCCULT BLOOD-UR LAB L400.3800 Negative /ul High LEUK 25 ESTERASE LAB L400.4050 0-5 /hpf WBC Normal 0-5 SEEN LAB L400.4100 0-5 /hpf Normal RBC-UA 0-5 SEEN LAB L400.4150 5-10 /hpf SQUAM 0 Normal EPI SEEN LAB L400.4300 None Seen /hpf 0 Normal BACTERIA SEEN LAB L400.4350 <or=2+ /hpf 0 Normal MUCUS, URINE SEEN Performed By: #### L400.0001 #### [facility] [address] [facility] [place], [address] EMERGENCY DEPARTMENT Observed: 01/29/2018 Status: F Source: [place] SUMMARY 3:54 PM [facility] REPOSITORY [facility] Medical Records Department [address] [place] [address] Emergency Department Summary 01/29/18 1004 MR#: [id number] Acct: [id number] Name: MIGUELITO WALDROP Rep #: [id number] : 1980 37 From: Pratik Almanza MD PCP: Sneha Briceno DO Status: DEP ER - ER Visit Summary Date of Service: 01/29/18 Chief Complaint: Right hip and groin pain History of Present Illness: The patient is a 37 F who is an insulin-dependent diabetic with history of lumbar radiculopathy presents to the emergency department with increasing right hip and groin pain. Patient states that she is out of for the past 2 weeks. She states that over the past few days, the pain is gotten more constant. She states is worse when she bears weight or moves her hip. She denies any fevers or chills. She denies any trauma to the area. She denies any abdominal pain. She had no urinary symptoms, nausea, vomiting, or vaginal discharge. She has not found anything besides rest that is really improved the pain. Physical Examination: Vital signs reviewed General: Well-nourished, well-developed Head: Normocephalic, atraumatic Eyes: Pupils equal and reactive, extraocular muscles intact Neck, supple, no lymphadenopathy Heart: Regular rate and rhythm Respiratory: No distress, clear bilaterally Abdomen: Soft, nontender, nondistended, no peritoneal signs Back: Nontender Extremities: Nontender, no edema, no cords, 2+ symmetric lower extremity pulses, 2+ reflexes, no pain with logroll or small arc range of motion of the hip Skin: Normal color no rash Neuro: Alert and oriented, no focal or lateralizing deficits Test Results: [] Emergency Department Course and Treatment: The patient symptoms do seem entirely muscular. She has normal pulses. There is no skin change. She has a normal gait. I did obtain plain films which are unremarkable. I also obtained a urine which does show some evidence of infection. The patient was treated with 3 days of Bactrim. She will be started on anti-inflammatories. She was counseled on concerning symptoms. At this time, I do feel that she is safe for discharge. Treatment Plan: [] Disposition: Discharge Impression: 1. Right hip bursitis 2. Acute cystitis This note was generated with Proficient dictation software. It may contain incorrect words, spelling, and punctuation that were not noted in review of the chart prior to signing ED Disposition - Plan for ED Patient: Chief Complaint: Other, Pain/Inj Instructions: ED Bursitis, ED UTI Cystitis Female Prescriptions: Naproxen [Naprosyn] 500 mg PO BID PRN #20 tab Smz/Tmp Ds [Bactrim Ds] 1 tab PO BID #6 tab Referrals: Sneha Briceno DO [Primary Care Provider] - What to do if you have Problems For any increased pain, shortness of breath, bleeding, nausea or vomiting, chest pain, or any unexpected problems, contact your Primary Care Provider. Call [facility] ([phone]) or report to the closest Emergency Room. Call 911 if necessary. 01/29/18 1554 <Electronically signed by Pratik Almanza MD> Date Pratik Almanza MD Cosigner Signature (If Indicated): Date CC: Sneha Briceno DO URINALYSIS, COMPLETE Collected: 01/29/2018 Status: F Source: [place] 10:30 AM [facility] REPOSITORY Order Comment: How was Urine Obtained? SHIFT SUPERVISOR TO SPECIFY TYPE CODE TESTS RESULT OUT OF RANGE REFERENCE UNITS LAB L400.3000 Yellow COLOR Normal Yellow LAB L400.3050 Clear Normal CLARITY Sl. Cloudy LAB L400.3200 Normal mg/dl High GLUCOSE, UR 250 LAB L400.3300 Negative mg/dL Normal BILIRUBIN URINE Negative LAB L400.3400 Negative mg/dl High 5 KETONE UR LAB L400.3465 1.002-1.030 Normal SP.GR. DIPSTX 1.025 LAB L400.3550 5.0 - 8.0 pH UR Normal 5.0 LAB L400.3600 Negative mg/dl High PROT 15 DIPSTX LAB L400.3700 Normal mg/dl Normal UROBILI Normal LAB L400.3750 Negative Normal NITRITE UR Negative LAB L400.3780 Negative /ul Normal OCCULT BLOOD-UR Negative LAB L400.3800 Negative /ul High LEUK ESTERASE 500 LAB L400.4050 0-5 /hpf WBC Normal 10-25 SEEN LAB L400.4100 0-5 /hpf 0 Normal RBC-UA SEEN LAB L400.4150 5-10 /hpf SQUAM Normal EPI 0-5 SEEN LAB L400.4300 None Seen /hpf Normal BACTERIA RARE LAB L400.4350 <or=2+ /hpf 0 Normal MUCUS, URINE SEEN Performed By: #### L400.0001 #### [facility] [address] [place], [address] ,URINE Collected: 01/29/2018 Status: F Source: [place] 10:30 AM [facility] REPOSITORY TYPE CODE TESTS RESULT OUT OF REFERENCE UNITS RANGE LAB L400.8000 Negative Normal HCGUQUAL Negative Result Comment: Very dilute urine specimens, as indicated by a low specific gravity, may not contain special service representative levels of hCG. If is still suspected, a first morning urine specimen should be collected 48 hours later and tested. Performed By: #### L400.7600 #### [facility] [address] [place], [address] HIP, UNI W/ PELVIS Observed: 01/29/2018 Status: F Source: [place] 2-3 VIEWS 10:04 AM [facility] REPOSITORY [facility] Imaging Services [address] [place] [address] HIP, UNI W/ Pelvis 2-3 Views MR#: [id number] Acct: [id number] Name: MIGUELITO WALDROP Rep #: [id number] : 1980 F 37 From: Ismael Eubanks MD PCP: Sneha Briceno DO Status: PRE ER Study: HIP, UNI W/ Pelvis 2-3 Views Date of Exam: 01/29/18 Exam# [id number] Ordering Dr: Pratik Almanza MD STUDY: X-RAY - PELVIS AND RIGHT HIP REASON FOR EXAM: Female, 37 years old. Several day history of pain. No known injury. TECHNIQUE: Radiological exam, hip, unilateral, with pelvis when performed; 2 or 3 views. COMPARISON: None. FINDINGS: There is a non-specific bowel gas pattern. Normal visualized soft tissue structures. Normal bilateral iliac wings, sacroiliac joints and visualized sacrum. Normal bilateral superior and inferior pubic rami. Normal pubic symphysis. Normal bilateral ischial tuberosities. Normal visualized femoral head. Normal acetabulum. Normal hip joint. RAD/HIP, UNI W/ Pelvis 2-3 Views IMPRESSION: Normal x-ray examination of the pelvis and hip. Electronically Signed: Ismael Eubanks MD at 10:30 EDT Tel [phone], Service support , CC: Sneha Briceno DO; Pratik Almanza MD Artist'S Manager: Signed EMERGENCY DEPARTMENT Observed: 12/07/2017 Status: F Source: [place] SUMMARY 10:17 PM [facility] REPOSITORY [facility] Medical Records Department [address] [place] [address] Emergency Department Summary 12/07/17 1647 MR#: [id number] Acct: [id number] Name: MIGUELITO WALDROP Rep #: [id number] : 1980 37 From: Liset Toth MD PCP: Sneha Briceno DO Status: DEP ER - ER Visit Summary Date of Service: 12/07/17 Chief Complaint: Abdominal pain History of Present Illness: The patient is a 37 F with right- sided abdominal pain for the past 4 hours. Patient initially describes right upper flank pain that is now the right lower quadrant. She denies nausea, vomiting, or diarrhea. She denies fever or chills. She denies urinary symptoms. Patient has had no prior abdominal surgeries. Physical Examination: Blood pressure is 163/91 temperature 98.5, heart rate 108, respiratory rate 17, pulse ox 97% on room air. Patient sitting upright in bed. She is in no acute distress. Head neck examination normal. Heart is regular rate and rhythm. Lung sounds are clear. Abdomen is soft with mild tenderness in the right lower quadrant. There is no guarding or rebound. Back examination reveals no CVA tenderness. Test Results: CBC and chemistry studies are unremarkable. Urinalysis does show 25-50 white cells with 2+ bacteria. test is negative. CT flank reveals fatty liver and cholelithiasis. They do not see any changes around the right kidney. Emergency Department Course and Treatment: Patient treated Toradol, Zofran, and IV fluids. On repeat evaluation she does feel improved. She be treated with a course of Bactrim. Treatment Plan: [] Disposition: Discharge Impression: Cystitis This note was generated with [employer] software. It may contain incorrect words, spelling, and punctuation that were not noted in review of the chart prior to signing ED Disposition - Plan for ED Patient: Chief Complaint: Abd Pain Referrals: Sneha Briceno, [Primary Care Provider] - What to do if you have Problems For any increased pain, shortness of breath, bleeding, nausea or vomiting, chest pain, or any unexpected problems, contact your Primary Care Provider. Call [facility] ([phone]) or report to the closest Emergency Room. Call 911 if necessary. 12/07/172216 <Electronically signed by Liset Toth MD> Date Liset Toth MD Cosigner Signature (If Indicated): Date CC: Sneha Briceno DO DISCHARGE INSTRUCTION Observed: 12/07/2017 Status: F Source: [place] 6:32 PM [facility] REPOSITORY [facility] Medical Records Department [address] [place] [address] Discharge Instruction 12/07/17 183 MR#: [id number] Acct: [id number] Name: MIGUELITO WALDROP Rep #: [id number] : 1980 37 From: Liset Toth MD PCP: Sneha Briceno DO Status: REG ER ED Disposition - Plan for ED Patient: Disposition: Home or Assisted Living Chief Complaint: Abd Pain Instructions: ED UTI Cystitis Female Prescriptions: Smz/Tmp Ds [Bactrim Ds] 1 tablet PO BID #6 tablet Referrals: Sneha Briceno DO [Primary Care Provider] - 5-7 Days What to do if you have Problems For any increased pain, shortness of breath, bleeding, nausea or vomiting, chest pain, or any unexpected problems, contact your Primary Care Provider. Call [facility] ([phone]) or report to the closest Emergency Room. Call 911 if necessary. 12/07/171831 <Electronically signed by Liset Toth MD> Date Liset Arguello Signature (If Indicated): Date CC: Sneha Briceno DO CBC W/DIFF, AUTOMATED Collected: 12/07/2017 Status: F Source: [place] 4:50 PM [facility] REPOSITORY TYPE CODE TESTS RESULT OUT OF RANGE REFERENCE UNITS LAB L100.1000 4.4-11.0 K/mm3 Normal WBC 7.3 LAB L100.1200 4.2-5.4 M/mm3 Normal RBC 4.94 LAB L100.1300 12.0-15.0 g/dl Normal HGB 13.1 LAB L100.1400 37-47 % Normal HCT 40.7 LAB L100.1500 81-99 fL Normal MCV 82.4 LAB L100.1600 27.0-32.0 pg Low MCH 26.5 LAB L100.1700 32-36 g/gl Normal MCHC 32.2 LAB L100.1810 11.6-14.6 % Normal RDW CV 14.3 LAB L100.1820 35.1-43.9 fl Normal RDW SD 42.8 LAB L100.1900 150-450 K/mm3 Normal PLT 203 LAB L100.2000 6.2-12.0 fl Normal MPV 10.4 LAB L100.2100 47-70 % Normal NEUT% 62.3 LAB L100.2200 19-41 % Normal LY% 30.9 LAB L100.2300 0-10 % Normal MONO% 5.5 LAB L100.2400 0-5 % Normal EO% 0.8 LAB L100.2500 0-1 % Normal BASO% 0.1 LAB L100.2550 0.0-0.9 % Normal IM GRAN % 0.400 Result Comment: IG% - Immature Granulocytes (promyelocytes, myelocytes and metamyelocytes) > 1% indicates that a LEFT SHIFT is Present. LAB L100.2620 2.0-7.7 X10 3/uL Normal Absolute Neut 4.6 LAB L100.2720 0.83-4.51 X10 3/ul Normal Absolute Lymph 2.26 Performed By: #### L100.0100 #### [facility] [address] [place], [place], [address] URINALYSIS, COMPLETE Collected: 12/07/2017 Status: F Source: [place] 4:50 PM [facility] REPOSITORY Order Comment: Order Date: 12/07/17 Has pt arrived? Y How was Urine Obtained? CLEAN CATCH TYPE CODE TESTS RESULT OUT OF REFERENCE UNITS RANGE LAB L400.3000 Yellow COLOR Normal Yellow LAB L400.3050 Clear CLARITY Normal Sl. Cloudy LAB L400.3200 Normal mg/dl GLUCOSE, UR High 250 LAB L400.3300 Negative mg/dL BILIRUBIN Normal URINE Negative LAB L400.3400 Negative mg/dl KETONE UR High 5 LAB L400.3465 1.002-1.030 SP.GR. Normal DIPSTX 1.025 LAB L400.3550 5.0 - 8.0 pH UR Normal 5.0 LAB L400.3600 Negative mg/dl PROT DIPSTX High 15 LAB L400.3700 Normal mg/dl UROBILI Normal Normal LAB L400.3750 Negative NITRITE UR Normal Negative LAB L400.3780 Negative /ul OCCULT High BLOOD-UR 10 LAB L400.3800 Negative /ul LEUK High ESTERASE 500 LAB L400.4050 0-5 /hpf WBC Normal 25-50 SEEN LAB L400.4100 0-5 /hpf RBC-UA Normal 0 SEEN LAB L400.4150 5-10 /hpf SQUAM EPI Normal 10-25 SEEN LAB L400.4300 None Seen /hpf BACTERIA Normal 2+ LAB L400.4350 <or=2+ /hpf MUCUS, Normal URINE 0 SEEN LAB L400.4200 0-5 /hpf Normal TRANSITIONAL EP 0-5 SEEN Performed By: #### L400.0001 #### [facility] [address] [place], [place], [id number] ,URINE Collected: 12/07/2017 Status: F Source: [place] 4:50 PM [facility] REPOSITORY Order Comment: Order Date: 12/07/17 Has pt arrived? Y TYPE CODE TESTS RESULT OUT OF REFERENCE UNITS RANGE LAB L400.8000 Negative Normal HCGUQUAL Negative Result Comment: Very dilute urine specimens, as indicated by a low specific gravity, may not contain special service representative levels of hCG. If is still suspected, a first morning urine specimen should be collected 48 hours later and tested. Performed By: #### L400.7600 #### [facility] [address] [place], [place], [address] BASIC METABOLIC Collected: 12/07/2017 Status: F Source: [place] PROFILE (BMP) 4:50 PM [facility] REPOSITORY TYPE CODE TESTS RESULT OUT OF RANGE REFERENCE UNITS LAB L501.0100 74-106 mg/dL High GLU 136 Result Comment: Fasting Glucose result greater than or equal to 126 mg/dL suggests DIABETES MELLITUS per A.D.A. criteria. Please note revised GLUCOSE reference range effective 2017. LAB L501.1000 7-18 mg/dL Normal BUN 16 LAB L501.1100 0.55-1.02 mg/dL Normal CREAT,SERUM 0.60 Result Comment: The validity of the calculated GFR AND GFRAA in patients over 70 years has not been determined. Clinical correlation is essential. LAB L501.1110 >60 mL/min Normal EST GFR 120 Result Comment: Non- GFR Calc LAB L501.1115 >60 mL/min Normal EST GFR - AA 146 Result Comment: GFR Calc LAB L501.1255 ml/min Normal Estimated CRCL 136.77 LAB L501.1300 10-20 RATIO High BUN/CRE 26.6 LAB L501.2200 8.5-10 mg/dL .1 CA Normal 9.0 LAB L501.5300 136-14 mmol/L 5 NA Normal 141 LAB L501.5600 3.5-5. mmol/L 1 K Normal 4.0 LAB L501.5900 98-107 mmol/L High CL 108 LAB L501.6100 21.0-3 mmol/L 2.0 CO2 Normal 27.0 LAB L501.6200 5-15 GAP Normal 6 Performed By: #### L500.2500 #### [facility] [address] [place], [address] ABDOMEN/PELVIS WITHOUT Observed: 12/07/2017 Status: F Source: [place] CONT 4:46 PM [facility] REPOSITORY [facility] Imaging Services [address] [place] [address] Abdomen/Pelvis without Cont MR#: [id number] Acct: [id number] Name: MIGUELITO WALDROP Rep #: [id number] : 1980 F 37 From: Sangeeta Mantilla MD PCP: Sneha Briceno DO Status: REG ER Study: Abdomen/Pelvis without Cont Date of Exam: 12/07/17 Exam# [id number] Ordering Dr: Liset Toth MD STUDY: CT ABDOMEN AND PELVIS WITHOUT CONTRAST REASON FOR EXAM: Female, 37 years old. Abdominal pain. RADIATION DOSAGE (If Supplied By Facility): CTDIvol = ( 22.31 ) mGy, DLP = ( 1270.81 ) mGycm TECHNIQUE: Transaxial images were obtained from the dome of the diaphragm to the symphysis pubis without oral contrast, and without intravenous contrast. Sagittal and coronal images were reconstructed. Individualized dose optimization techniques were used for this CT. COMPARISON: December 13, 2015 FINDINGS: The visualized lung bases are unremarkable. The visualized portions of the heart are within normal limits. There is decreased attenuation of the liver consistent with steatosis. There is hepatomegaly. There is a gallstone within the gallbladder. There is mild stable splenomegaly. Normal pancreas. Normal bilateral adrenal glands. Normal right kidney. Normal left kidney. Normal visualized stomach. Normal small intestine. Normal colon. There is non-visualization of the appendix. Normal abdominal aorta. Normal inferior vena cava. Normal retroperitoneum. Normal urinary bladder. Normal abdominal wall. There are diffuse degenerative changes of the visualized lumbar spine. CT/Abdomen/Pelvis without Cont IMPRESSION: Fatty infiltration of the liver associated with hepatomegaly. Stable mild splenomegaly. Cholelithiasis. Electronically Signed: Sangeeta Mantilla MD at 18:16 EDT Tel , Service support , CC: Liset Toth MD; Sneha Briceno DO Artist'S Manager: Signed PROGRESS Observed: 11/08/2017 Status: COMPLETED Source: [place] 11:04 AM [facility] [place] REPOSITORY HNO ID: [id number] Author: Baylee Bentley Service: (none) Author Type: Nurse Practitioner Type: Progress Notes Filed: 11/08/2017 11:51 AM Note Text: Subjective HPI Miguelito Waldrop is a 36 year old female who presents with an abrasion on her left knee, she fell at home yesterday in the mud. She cleaned it with alcohol afterwards. She is up to date on her tetanus immunization. She rates her knee pain a 11/11. She did not take any medication for the pain. She is able to walk on the knee, states it is painful with bending. Review of Systems Constitutional: Negative. Negative for chills and fever. Musculoskeletal: Positive for falls and joint pain. Skin: See HPI BP 132/84 Pulse 80 Temp 37.2 ?C (98.9 ?F) (Tympanic) Wt 123.4 kg (272 lb) BMI 40.17 kg/m? PAST MEDICAL HISTORY Diagnosis Date - Anemia in 02/11/2013 - Chronic hypertension in 04/15/2013 - Diabetes (HCC) - Diabetes, gestational - Dysthymic disorder Depression (non-psychotic) - Elevated blood sugar Patient on Glucophage - FRACTURE AGE11 WRIST - Infertility, anovulation 08/14/2010 - Pre-eclampsia in third trimester 08/08/2016 PAST SURGICAL HISTORY Procedure Laterality Date - NONE ALLERGIES Amoxicillin MEDICATIONS sertraline HCl (ZOLOFT ORAL) Take by mouth. lisinopril (ZESTRIL, PRINIVIL) 10 mg tablet Take 10 mg by mouth once daily. insulin NPH human (HUMULIN N) injection Inject 60 Units subcutaneously daily at bedtime. insulin regular human (NOVOLIN R,HUMULIN R) 100 unit/mL injection Inject 23 Units subcutaneously three times daily before meals. insulin NPH human (NOVOLIN N, HUMULIN N) injection Inject 20 units at bedtime. Insulin Syringe-Needle U-100 1 mL 29 gauge x 1/2 syrg Use one syringe for each dose. 4 per day blood sugar diagnostic (FREESTYLE LITE STRIPS) test strip Test blood sugar(s) 2x daily. Dx: E11.65. Insulin: No lancets (FREESTYLE LANCETS) 28 gauge misc Test blood sugar(s) 2x daily. Dx: E11.65. Insulin: No PHENTERMINE HCL (ADIPEX-P ORAL) Take by mouth. Dextromethorphan-guaiFENesin (MUCINEX DM) 60-1,200 mg Tb12 Take 1 tablet by mouth twice daily. acetaminophen (TYLENOL EXTRA STRENGTH) 500 mg tablet Take 2 tablets by mouth every 6 hours as needed for Pain. FOR PAIN. Urine Glucose-Ketones Test (KETO-DIASTIX) strp 1 Strip as needed. Dozurzaa-Ll-Pdw-Fe-FA ( VITAMIN) tab Take 1 tablet by mouth once daily. aspirin, enteric coated (ASPIR-81) 81 mg EC tablet Take 1 tablet by mouth once daily. FAMILY HISTORY Problem Relation Age of Onset - Hypertension Mother - Hypertension Maternal Grandmother - Heart Maternal Grandfather [place] - Diabetes Paternal Grandmother - Diabetes Paternal Grandfather Social History Substance Use Topics - Smoking status: Former Smoker Years: 6.00 Types: Cigarettes Quit date: 04/28/2011 - Smokeless tobacco: Never Used - Alcohol use Yes Comment: Occasionally,NOT WHILE Objective Physical Exam Constitutional: She is well-developed, well-nourished, and in no distress. Musculoskeletal: Left knee: She exhibits laceration (abrasion). She exhibits normal range of motion, no swelling, no effusion, no ecchymosis, no deformity, no erythema, normal alignment, no LCL laxity, normal patellar mobility and no bony tenderness. Tenderness found. Patellar tendon tenderness noted. Legs: Left knee: Left compared to right. No erythema, effusion, or deformity. Pain with flexion past 90 degrees, otherwise FROM. No crepitus. No medial or lateral joint line tenderness. No pain with varus strain. No pain with valgus strain. Negative anterior drawer test. Negative posterior drawer test. Able to bear weight. Apprehensive gait. Neurological: She is alert. Skin: Skin is warm and dry. Nursing note and vitals reviewed. ASSESSMENT/PLAN: 1. Injury of left knee, initial encounter - ICD9: 959.7, ICD10: S89.92XA (primary diagnosis) - XR KNEE GENERAL 4V AP BOTH/PA BOTH/LAT/MERC LT. Patient will have xray on Friday. I have low suspicion for any bony abnormality. She is offered crutches but declined. - RICE therapy as directed 2. Abrasion, knee, left, initial encounter - ICD9: 916.0, ICD10: S80.212A - cleansed with hibiclens and saline, mupirocin ointment applied, covered with non-stick dressing. - skin care of wound reviewed with patient. - Follow-up with your PCP in 3-5 days if symptoms have not improved or sooner if symptoms worsen - Discussed red flags and need for immediate medical evaluation if any occur. - Discussed supportive care treatment with fluids, rest and analgesia. - Discussed expected course of illness Baylee Bentley APRN.LORENA' GEOVANI Observed: 11/08/2017 Status: COMPLETED Source: [place] 10:[address] [facility] REPOSITORY Office Visit ([facility]) MIGUELITO WALDROP ([id number]) 1980 F Date Time Provider Department 11/08/17 10:30 AM [facility] During your visit today, we recorded the following information about you: Temperature Pulse Blood pressure Weight 98.9 degrees 80/minute 132/84 123.4 kg Baylee Bentley APRN.CNP 11/08/2017 11:51 AM Signed Subjective HPI Miguelito Waldrop is a 36 year old female who presents with an abrasion on her left knee, she fell at home yesterday in the mud. She cleaned it with alcohol afterwards. She is up to date on her tetanus immunization. She rates her knee pain a /10. She did not take any medication for the pain. She is able to walk on the knee, states it is painful with bending. Review of Systems Constitutional: Negative. Negative for chills and fever. Musculoskeletal: Positive for falls and joint pain. Skin: See HPI BP 132/84 Pulse 80 Temp 37.2 ?C (98.9 ?F) (Tympanic) Wt 123.4 kg (272 lb) BMI 40.17 kg/m? PAST MEDICAL HISTORY Diagnosis Date - Anemia in 02/11/2013 - Chronic hypertension in 04/15/2013 - Diabetes (HCC) - Diabetes, gestational - Dysthymic disorder Depression (non-psychotic) - Elevated blood sugar Patient on Glucophage - FRACTURE AGE11 WRIST - Infertility, anovulation 08/14/2010 - Pre-eclampsia in third trimester 08/08/2016 PAST SURGICAL HISTORY Procedure Laterality Date - NONE ALLERGIES Amoxicillin MEDICATIONS sertraline HCl (ZOLOFT ORAL) Take by mouth. lisinopril (ZESTRIL, PRINIVIL) 10 mg tablet Take 10 mg by mouth once daily. insulin NPH human (HUMULIN N) injection Inject 60 Units subcutaneously daily at bedtime. insulin regular human (NOVOLIN R,HUMULIN R) 100 unit/mL injection Inject 23 Units subcutaneously three times daily before meals. insulin NPH human (NOVOLIN N, HUMULIN N) injection Inject 20 units at bedtime. Insulin Syringe-Needle U-100 1 mL 29 gauge x 1/2 syrg Use one syringe for each dose. 4 per day blood sugar diagnostic (FREESTYLE LITE STRIPS) test strip Test blood sugar(s) 2x daily. Dx: E11.65. Insulin: No lancets (FREESTYLE LANCETS) 28 gauge misc Test blood sugar(s) 2x daily. Dx: E11.65. Insulin: No PHENTERMINE HCL (ADIPEX-P ORAL) Take by mouth. Dextromethorphan-guaiFENesin (MUCINEX DM) 60-1,200 mg Tb12 Take 1 tablet by mouth twice daily. acetaminophen (TYLENOL EXTRA STRENGTH) 500 mg tablet Take 2 tablets by mouth every 6 hours as needed for Pain. FOR PAIN. Urine Glucose-Ketones Test (KETO-DIASTIX) strp 1 Strip as needed. Vmocrpsf-Cn-Jui-Fe-FA ( VITAMIN) tab Take 1 tablet by mouth once daily. aspirin, enteric coated (ASPIR-81) 81 mg EC tablet Take 1 tablet by mouth once daily. FAMILY HISTORY Problem Relation Age of Onset - Hypertension Mother - Hypertension Maternal Grandmother - Heart Maternal Grandfather [place] - Diabetes Paternal Grandmother - Diabetes Paternal Grandfather Social History Substance Use Topics - Smoking status: Former Smoker Years: 6.00 Types: Cigarettes Quit date: 04/28/2011 - Smokeless tobacco: Never Used - Alcohol use Yes Comment: Occasionally,NOT WHILE Objective Physical Exam Constitutional: She is well-developed, well-nourished, and in no distress. Musculoskeletal: Left knee: She exhibits laceration (abrasion). She exhibits normal range of motion, no swelling, no effusion, no ecchymosis, no deformity, no erythema, normal alignment, no LCL laxity, normal patellar mobility and no bony tenderness. Tenderness found. Patellar tendon tenderness noted. Legs: Left knee: Left compared to right. No erythema, effusion, or deformity. Pain with flexion past 90 degrees, otherwise FROM. No crepitus. No medial or lateral joint line tenderness. No pain with varus strain. No pain with valgus strain. Negative anterior drawer test. Negative posterior drawer test. Able to bear weight. Apprehensive gait. Neurological: She is alert. Skin: Skin is warm and dry. Nursing note and vitals reviewed. ASSESSMENT/PLAN: 1. Injury of left knee, initial encounter - ICD9: 959.7, ICD10: S89.92XA (primary diagnosis) - XR KNEE GENERAL 4V AP BOTH/PA BOTH/LAT/MERC LT. Patient will have xray on Friday. I have low suspicion for any bony abnormality. She is offered crutches but declined. - RICE therapy as directed 2. Abrasion, knee, left, initial encounter - ICD9: 916.0, ICD10: S80.212A - cleansed with hibiclens and saline, mupirocin ointment applied, covered with non-stick dressing. - skin care of wound reviewed with patient. - Follow-up with your PCP in 3-5 days if symptoms have not improved or sooner if symptoms worsen - Discussed red flags and need for immediate medical evaluation if any occur. - Discussed supportive care treatment with fluids, rest and analgesia. - Discussed expected course of illness Baylee Bentley APRN.LORENA' Baylee Bentley APRN.CNP 11/08/2017 11:23 AM Addendum Go to [facility] for your xray on Friday. Change the bandage at least once daily. CONTUSIONS GENERAL INFORMATION: A contusion, or bruise, is caused by an injury that does not break the skin. Bleeding under the skin causes it to look black and blue. It may take 2 or 3 weeks for the bruising to disappear. INSTRUCTIONS: 1. You may continue your normal daily activities as tolerated. Rest the injured area as much as possible. 2. Apply ice to the injury for 15 minutes each hour (while awake) for the first two days. Put the ice in a plastic bag and place a thin towel between the bag of ice and your skin. 3. After the first 1 to 2 days, you may apply heat to the injury to help relieve pain. You may use a warm heating pad, whirlpool bath, or warm moist towels for 15-20 minutes every hour (while awake) for 48 hours. 4. You may use medicines for pain such as acetaminophen, ibuprofen or aspirin (unless otherwise instructed by your physician). CONTACT YOUR DOCTOR OR RETURN TO THE ED IF: 1. Your pain becomes worse. 2. You develop a temperature over 101 F (38.3 C). 3. The swelling increases greatly in the area of the bruise. 4. Redness or lines of redness develop in the area of the bruise. Referring Provider: SELF [[id number]] Allergies As of Date: 11/08/2017 Noted Allergy Reaction AMOXICILLIN 07/15/2008 9 - Itching Date Reviewed: 11/08/2017 Reviewed by: Baylee ([facility]) cM - Fully Assessed Reason for Visit: Pain [78] Cmt: LT knee pain from fall yesterday Primary Visit Diagnosis:Injury of left knee, initial encounter [S89.92XA] Other Visit Diagnosis:Abrasion, knee, left, initial encounter [S80.212A] Order(s):metFORMIN (GLUCOPHAGE) 1,000 mg tabletTake 1 tablet by mouth twice daily with meals.Disp: 60 tabletRfl: 11 XR KNEE GENERAL 4V AP BOTH/PA BOTH/LAT/MERC LT [[id number]] Order #: [id number] FUTURE Prescriptions as of 11/08/2017 Sig: ZOLOFT ORAL Take by mouth. LISINOPRIL 10 MG TABLET Take 10 mg by mouth once devorah* INSULIN NPH ISOPHANE U-100 HU* Inject 60 Units subcutaneousl* INSULIN U-100 REGULAR HUMAN 1* Inject 23 Units subcutaneousl* Patient taking differently: Inject 26 Units subcutaneousl* INSULIN NPH ISOPHANE U-100 HU* Inject 20 units at bedtime. Patient taking differently: Inject 50 Units subcutaneousl* INSULIN SYRINGE-NEEDLE U-100 * Use one syringe for each dose* BLOOD SUGAR DIAGNOSTIC STRIPS Test blood sugar(s) 2x daily.* LANCETS 28 GAUGE Test blood sugar(s) 2x daily.* METFORMIN 1,000 MG TABLET Take 1 tablet by mouth twice * ADIPEX-P ORAL Take by mouth. ACETAMINOPHEN 500 MG TABLET Take 2 tablets by mouth every* Patient not taking: Reported on 11/08/2017 URINE GLUCOSE-KETONES TEST ST* 1 Strip as needed. Problem List As Of Date 11/08/2017 Noted Resolved Infertility, anovulation [N97.0] INVALID FOR*09/05/2011 Glucose intolerance (impaired glucose tolerance*INVALID FOR*06/20/2011 Abnormal maternal glucose tolerance, antepartum*INVALID FOR*07/23/2012 Gestational diabetes mellitus [O24.419] INVALID FOR*07/23/2012 More... Supervision of other high-risk [O09.8*INVALID FOR*07/23/2012 Type 2 diabetes mellitus (HCC) [E11.9] INVALID FOR*02/01/2016 More... with uncertain dates [Z34.90] INVALID FOR*04/15/2013 More... Major depressive disorder (HCC) [F32.9] INVALID FOR* More... Exposure to STD [Z20.2] INVALID FOR*02/01/2016 More... Obesity in [O99.210] INVALID FOR*02/01/2016 Short interval between pregnancies complicating*INVALID FOR*04/15/2013 Anemia in [O99.019] INVALID FOR*02/01/2016 Chronic hypertension in [O10.919] INVALID FOR*02/01/2016 More... Myalgia [M79.1] INVALID FOR* DDD (degenerative disc disease), lumbar [M51.36]INVALID FOR* More... Diabetes mellitus in in third trimest*INVALID FOR* More... History of depression [Z86.59] INVALID FOR* More... STD exposure [Z20.2] INVALID FOR* More... Patient requested diagnostic testing [Z01.89] INVALID FOR*08/16/2016 More... History of gestational hypertension [Z87.59] INVALID FOR*02/06/2016 Medication exposure during first trimester of p*INVALID FOR* More... Chronic hypertension complicating or reason for*INVALID FOR* Pre-eclampsia in third trimester [O14.93] INVALID FOR* More... Other instructions from your clinician: Go to [facility] for your xray on Friday. Change the bandage at least once daily. CONTUSIONS GENERAL INFORMATION: A contusion, or bruise, is caused by an injury that does not break the skin. Bleeding under the skin causes it to look black and blue. It may take 2 or 3 weeks for the bruising to disappear. INSTRUCTIONS: 1. You may continue your normal daily activities as tolerated. Rest the injured area as much as possible. 2. Apply ice to the injury for 15 minutes each hour (while awake) for the first two days. Put the ice in a plastic bag and place a thin towel between the bag of ice and your skin. 3. After the first 1 to 2 days, you may apply heat to the injury to help relieve pain. You may use a warm heating pad, whirlpool bath, or warm moist towels for 15-20 minutes every hour (while awake) for 48 hours. 4. You may use medicines for pain such as acetaminophen, ibuprofen or aspirin (unless otherwise instructed by your physician). CONTACT YOUR DOCTOR OR RETURN TO THE ED IF: 1. Your pain becomes worse. 2. You develop a temperature over 101 F (38.3 C). 3. The swelling increases greatly in the area of the bruise. 4. Redness or lines of redness develop in the area of the bruise. Prescriptions ordered this encounter Disp Refills Start End METFORMIN 1,000 MG TABLET 60 t* 11 11/08/2017 Class: Med Update Route: ORAL Sig: Take 1 tablet by mouth twice daily with meals. Medications Discontinued During This Encounter Dextromethorphan-guaiFENesin (MUCINE* 20 t* 0 02/10/2017 11/08/2017 Route: ORAL Sig: Take 1 tablet by mouth twice daily. Patient not taking: Reported on 11/08/2017 Disc: Reason for discontinue is not on file. Chvjeizd-Ha-Xwf-Fe-FA (PREN* 30 t* 12 02/27/2016 11/08/2017 Route: ORAL Sig: Take 1 tablet by mouth once daily. Patient not taking: Reported on 11/08/2017 Disc: Reason for discontinue is not on file. aspirin, enteric coated (ASPIR-81) 8* 100 * 1 02/13/2016 11/08/2017 Route: ORAL Sig: Take 1 tablet by mouth once daily. Patient not taking: Reported on 11/08/2017 Disc: Reason for discontinue is not on file. metFORMIN (GLUCOPHAGE) 500 mg ORAL t* 20 t* 0 06/26/2011 11/08/2017 Route: ORAL Sig: Take 1 tablet by mouth twice daily with meals for 10 days. Disc: Reason for discontinue is not on file. Encounter Status:Closed by BAYLEE BENTLEY on 11/08/17 DOWNTIME REPORT Observed: 10/22/2017 Status: F Source: [place] 1:49 PM [facility] Medical Records Department [address] [place] [address] Downtime Report MR#: [id number] Acct: [id number] Name: PALMAMIGUELITO Trish Rep #: [id number] : 1980 36 From: Daniel Wolf MD PCP: Sneha Briceno DO Status: DEP ER This patient was seen during an EMR downtime October 06, 2017 - October 13, 2017. This patient may have a combination of paper and electronic documentation or all paper documentation. All documentation is viewable within the e-chart portion of [employer] for each patient visit. 12 LEAD ELECTROCARDIOGRAM Observed: 10/20/2017 Status: F Source: [place] 8:43 AM [facility] Cardiovascular Services [address] [place] [address] 12 Lead EKG 10/09/172046 MR#: [id number] Acct: [id number] Name: PALMAMIGUELITO Rep #: [id number] : 1980 36 From: Roberth Cardoza MD Attending Dr: Status: DEP ER Ordering Dr: Damari Taylor MD Date: 10/09/17 Location: ED Sex: F C Admitted: Test Reason : CP Blood Pressure : / mmHG Vent. Rate : 107 BPM Atrial Rate : 107 BPM P-R Int : 154 ms QRS Dur : 082 ms QT Int : 340 ms P-R-T Axes : 031 007 043 degrees QTc Int : 453 ms Sinus tachycardia Otherwise normal ECG Confirmed by ROBERTH CARDOZA MD ([id number]), newspaper managing editor MIESHA WOLF ([id number]) on 10/15/2017 5:27:10 PM Referred By: BRANDON/AIDEN Confirmed By:ROBERTH CARDOZA MD 10/15/17 1727 Date Roberth Cardoza MD CC: DAMARI TAYLOR MD; Sneha Briceno DO Signed CHEST PA AND LATERAL Observed: 10/14/2017 Status: F Source: [place] 11:27 AM [facility] REPOSITORY [facility] Imaging Services [address] [place] [address] Chest PA and Lateral MR#: [id number] Acct: [id number] Name: MIGUELITO WALDROP Rep #: [id number] : 1980 F 36 From: Dipesh Lewis MD PCP: Sneha Briceno DO Status: DEP ER Study: Chest PA and Lateral Date of Exam: 10/09/17 Exam# [id number] Ordering Dr: Damari Taylor MD ADDENDUM by Dipesh Lewis on 10/20/17 at 1558 RAD/Chest PA and Lateral IMPRESSION: Normal x-ray examination of the chest. Electronically Signed: Dipesh Lewis MD at 15:58 EDT , Service support , 10/20/17 1800 Date cc: DAMARI TAYLOR MD; Sneha Briceno DO * Signed ADDENDUM by Dipesh Lewis on 10/20/17 at 1558 ADDENDUM STUDY: X-RAY CHEST REASON FOR EXAM: Female, 36 years old. Having chest pains on and off x 1week TECHNIQUE: Frontal and lateral views of the chest. COMPARISON: None. FINDINGS: The lungs are clear and expanded. There is no demonstrated pleural abnormality. Normal size heart. Normal mediastinum and leesa. Normal visualized pulmonary arteries. Normal visualized aortic arch and descending thoracic aorta. Normal visualized thoracic spine. Normal visualized ribs, clavicles, and shoulders. There is no demonstrated abnormality of the visualized soft tissue structures of the upper abdomen. 10/20/17 1558 Date cc: DAMARI TAYLOR MD; Sneha Briceno DO * Signed STUDY: X-RAY CHEST REASON FOR EXAM: Female, 36 years old. Having chest pains on and off x 1week TECHNIQUE: Single AP portable view of the chest. COMPARISON: None. FINDINGS: The lungs are clear and expanded. There is no demonstrated pleural abnormality. Normal size heart. Normal mediastinum and leesa. Normal visualized pulmonary arteries. Normal visualized aortic arch and descending thoracic aorta. Normal visualized thoracic spine. Normal visualized ribs, clavicles, and shoulders. There is no demonstrated abnormality of the visualized soft tissue structures of the upper abdomen. IMPRESSION: Normal x-ray examination of the chest. Electronically Signed: Dipesh Lewis MD at 21:59 EDT , Service support , STUDY: X-RAY - ABDOMEN REASON FOR EXAM: Female, 36 years old. Having chest pains on and off x 1week TECHNIQUE: Single AP view of the abdomen -upper abdomen. COMPARISON: None. FINDINGS: Normal visualized lung bases. There is an unremarkable bowel gas pattern. There is no demonstrated free abdominal air. The visualized liver, spleen and kidneys are grossly normal in size and morphology. Normal soft tissue structures. Normal visualized osseous structures. RAD/Chest PA and Lateral IMPRESSION: Normal x-ray examination of the abdomen Electronically Signed: Dipesh Lewis MD at 22:00 EDT , Service support , CC: DAMARI TAYLOR MD; Sneha Briceno DO Artist'S Manager: Signed CBC W/DIFF, AUTOMATED Collected: 10/09/2017 Status: F Source: [place] 9:40 PM [facility] REPOSITORY TYPE CODE TESTS RESULT OUT OF RANGE REFERENCE UNITS LAB L100.1000 4.4-11.0 K/mm3 Normal WBC 7.3 LAB L100.1200 4.2-5.4 M/mm3 Normal RBC 5.12 LAB L100.1300 12.0-15.0 g/dl Normal HGB 13.6 LAB L100.1400 37-47 % Normal HCT 41.2 LAB L100.1500 81-99 fL Low MCV 80.5 LAB L100.1600 27.0-32.0 pg Low MCH 26.6 LAB L100.1700 32-36 g/gl Normal MCHC 33.0 LAB L100.1810 11.6-14.6 % Normal RDW CV 14.1 LAB L100.1820 35.1-43.9 fl Normal RDW SD 41.3 LAB L100.1900 150-450 K/mm3 Normal PLT 207 LAB L100.2000 6.2-12.0 fl Normal MPV 9.8 LAB L100.2100 47-70 % Low NEUT% 42.9 LAB L100.2200 19-41 % High LY% 49.0 LAB L100.2300 0-10 % Normal MONO% 6.9 LAB L100.2400 0-5 % Normal EO% 0.7 LAB L100.2500 0-1 % Normal BASO% 0.1 LAB L100.2550 0.0-0.9 % Normal IM GRAN % 0.400 Result Comment: IG% - Immature Granulocytes (promyelocytes, myelocytes and metamyelocytes) > 1% indicates that a LEFT SHIFT is Present. LAB L100.2620 2.0-7.7 X10 3/uL Normal Absolute Neut 3.1 LAB L100.2720 0.83-4.51 X10 3/ul Normal Absolute Lymph 3.56 Performed By: #### L100.0100 #### [facility] [address] [place], [address] BASIC METABOLIC Collected: 10/09/2017 Status: F Source: [place] PROFILE (BMP) 9:40 PM [facility] REPOSITORY Order Comment: RESULT(S) PREVIOUSLY REPORTED ON MANUAL REQUISITION DURING DOWNTIME. 'TROP' Serial specimen #1, #2, #3, or #4: 1 TYPE CODE TESTS RESULT OUT OF RANGE REFERENCE UNITS LAB L501.0100 74-106 mg/dL High GLU 153 Result Comment: Fasting Glucose result greater than or equal to 126 mg/dL suggests DIABETES MELLITUS per A.D.A. criteria. Please note revised GLUCOSE reference range effective 2017. LAB L501.1000 7-18 mg/dL Normal BUN 9 LAB L501.1100 0.55-1.02 mg/dL Normal CREAT,SERUM 0.57 Result Comment: The validity of the calculated GFR AND GFRAA in patients over 70 years has not been determined. Clinical correlation is essential. LAB L501.1110 >60 mL/min Normal EST GFR 129 LAB L501.1115 >60 mL/min Normal EST GFR - AA 156 LAB L501.1300 10-20 RATIO Normal BUN/CRE 15.8 LAB L501.2200 8.5-10.1 mg/dL Normal CA 8.7 LAB L501.5300 136-145 mmol/L Normal NA 142 LAB L501.5600 3.5-5.1 mmol/L Normal K 3.9 LAB L501.5900 98-107 mmol/L Normal CL 106 LAB L501.6100 21.0-32.0 mmol/L Normal CO2 26.0 LAB L501.6200 5-15 Normal GAP 10 Performed By: #### L500.2500, L501.4010 #### [facility] [address] [place], [address] TROPONIN-I Collected: 10/09/2017 Status: F Source: [place] 9:40 PM [facility] REPOSITORY Order Comment: RESULT(S) PREVIOUSLY REPORTED ON MANUAL REQUISITION DURING DOWNTIME. 'TROP' Serial specimen #1, #2, #3, or #4: 1 TYPE CODE TESTS RESULT OUT OF RANGE REFERENCE UNITS LAB L501.4010 <0.045 ng/mL Normal < 0.015 TROPONIN-I Result Comment: TROPONIN-I EXPECTED VALUES <0.045 Negative 0.045 - 0.590 Consistent with Cardiac Damage > OR = 0.600 Critical Value Not every elevated troponin is indicative of UT. These values should be used with clinical judgement in examining the patient's clinical picture for diagnosis. To establish a diagnosis of UT versus myocardial injury, there must be a demonstrated rise and/or fall in the troponin values, in addition to ischemic symptoms, EKG changes, new regional wall motion abnormality, and/or angiographical evidence. PLEASE NOTE: REFERENCE RANGES EDITED 17 Performed By: #### L500.2500, L501.4010 #### [facility] [address] [facility] [address] [place], [address] CHIROPRACTIC REPORT Observed: 09/16/2017 Status: F Source: [place] 3:00 PM [facility] REPOSITORY [facility] [address] [place] [address] OFFICE VISIT Date of Service: 09/15/17 MR#: [id number] Acct: [id number] Name: MIGUELITO WALDROP Rep #: [id number] : 1980 Provider: Kandis Collins D.C. Age/Sex: 36/F Location: [facility] [place] Status: Signed Intake Vital Signs09/15/17 Height 5 ft 8 in 09/15/17 Weight: 287 lb 09/15/17 Body Mass Index (BMI) 43.6 Intake Visit Reasons: back pain Chief Complaint: Low back pain Is patient in pain?: Yes Allergies amoxicillin [Amoxicillin] Allergy (Verified 08/25/17 12:23) Itching Medications Insulin Aspart [Novolog Flexpen] 15 units SC TIDAC #0 flexpen 09/04/16 [Rx Confirmed 08/25/17] Insulin NPH Human [Humulin N Pen] 45 units SC QHS 07/26/17 [History Confirmed 08/25/17] Lisinopril [Zestril] 10 mg PO DAILY 07/26/17 [History Confirmed 08/25/17] Adipex-P PO DAILY 08/02/17 [History Confirmed 08/20/17] cyclobenzaprine 10 mg tablet 10 mg PO TID PRN #20 tab 08/20/17 [Rx Confirmed 08/25/17] ibuprofen 800 mg tablet 800 mg PO TID PRN #30 tab 08/20/17 [Rx Confirmed 08/25/17] Naproxen [Naprosyn] 500 mg PO BID #14 tab 08/25/17 [Rx] PFSH Medical History Diabetes (Acute) Pre-eclampsia, (Acute) Family History Other Diabetes Heart disease Hypertension Social History Smoking Status: Never smoker alcohol intake: never HPI back pain : Chief Complaint: back pain Visit Number: 3 Details: MIGUELITO WALDROP is a 36 year old F who presents with decreased low back pain. Miguelito states that after her last adjustment the pain decreased, causing the sciatic pain to go away although yesterday she regi with increased pain that has continued throughout the day. Today the patient rates her pain a 4/10 and describes it as a sore and tight ache banding across the low back. She denies any numbness, tingling or radiculopathy. Onset: 09/14/17 Location: low back Duration: intermittent Aggravating or associated factors: bending, lifting, prolonged standing Pain Quality: aching, dull Exam Musc General: Yes normal posture, normal gait and joint tenderness (L2-L5, L SI) Thoracic/Lumbar Spine: thoracic and lumbar spine normal to inspection, Lasegue's sign positive on the left, pain with thoraco-lumbar ROM (slightly improved) with forward flexion, with lateral flexion to the left and with lateral flexion to the right, paraspinal tenderness (slightly improved) on the left in the mid lumbar and in the lower lumbar, thoraco-lumbar ROM limited (slightly improved) with forward flexion and with lateral flexion to the left, thoraco-lumbar spasm on the left in the lower lumbar Office Procedures Chiropractic Treatments Procedures Manipulation: 3-4 regions (T10,L2,L5, LIL) Traction, Mechanical: Yes Details: Lumbar traction 15 min Assessment AND Plan Problems 1. Segmental and somatic dysfunction of thoracic region M99.02 2. Segmental and somatic dysfunction of lumbar region M99.03 3. Lumbar radiculopathy M54.16 4. Segmental and somatic dysfunction of pelvic region M99.05 Plan Continue with acute treatment plan. Orders Orders: Plan Detail Goals Decrease inflammation Increase ROM Follow Up 1 Week Coding Level of Care Code No Charge Diagnoses Segmental and somatic dysfunction of thoracic region M99.02 Segmental and somatic dysfunction of lumbar region M99.03 Lumbar radiculopathy M54.16 Segmental and somatic dysfunction of pelvic region M99.05 Additional Codes Procedures - Traction, Mechanical: Yes (83596) Procedures - Manipulation: 3-4 regions (82880) 09/16/17 1500 <Electronically signed by Kandis Collins D.C.> Date Kandis Collins D.C. Cosigner Signature: Date (if applicable) CC: CHIROPRACTIC REPORT Observed: 09/02/2017 Status: F Source: [place] 2:56 PM [facility] [address] [place] [address] [id number] OFFICE VISIT Date of Service: 09/01/17 MR#: [id number] Acct: [id number] Name: MIGUELITO WALDROP Rep #: [id number] : 1980 Provider: Kandis Collins D.C. Age/Sex: 36/F Location: [facility] Status: Signed Intake Vital Signs09/01/17 Height 5 ft 8 in 09/01/17 Weight: 287 lb 09/01/17 Body Mass Index (BMI) 43.6 Intake Visit Reasons: back pain Chief Complaint: Low back pain Is patient in pain?: Yes Allergies amoxicillin [Amoxicillin] Allergy (Verified 08/25/17 12:23) Itching Medications Insulin Aspart [Novolog Flexpen] 15 units SC TIDAC #0 flexpen 09/04/16 [Rx Confirmed 08/25/17] Insulin NPH Human [Humulin N Pen] 45 units SC QHS 07/26/17 [History Confirmed 08/25/17] Lisinopril [Zestril] 10 mg PO DAILY 07/26/17 [History Confirmed 08/25/17] Adipex-P PO DAILY 08/02/17 [History Confirmed 08/20/17] cyclobenzaprine 10 mg tablet 10 mg PO TID PRN #20 tab 08/20/17 [Rx Confirmed 08/25/17] ibuprofen 800 mg tablet 800 mg PO TID PRN #30 tab 08/20/17 [Rx Confirmed 08/25/17] Naproxen [Naprosyn] 500 mg PO BID #14 tab 08/25/17 [Rx] PFSH Medical History Diabetes (Acute) Pre-eclampsia, (Acute) Family History Other Diabetes Heart disease Hypertension Social History Smoking Status: Never smoker alcohol intake: never HPI back pain : Chief Complaint: back pain Visit Number: 2 Details: MIGUELITO WALDROP is a 36 year old F who presents with decreased low back pain. She states that she is now able to stand, bend, and lift with little pain. Today Miguelito rates her pain a 1/10 and describes it as a dull ache that started after work, she denies any numbness, tingling, or radiculopathy. Location: low back Duration: intermittent Aggravating or associated factors: work Pain Quality: aching, dull Exam Musc General: Yes normal posture, normal gait and joint tenderness (L2-L5, L SI) Thoracic/Lumbar Spine: thoracic and lumbar spine normal to inspection, Lasegue's sign positive on the left, pain with thoraco-lumbar ROM (slightly improved) with forward flexion, with lateral flexion to the left and with lateral flexion to the right, paraspinal tenderness (slightly improved) on the left in the mid lumbar and in the lower lumbar, thoraco-lumbar ROM limited (slightly improved) with forward flexion and with lateral flexion to the left, thoraco-lumbar spasm on the left in the lower lumbar Office Procedures Chiropractic Treatments Procedures Manipulation: 1-2 regions (T12, L2, L5) Traction, Mechanical: Yes Details: Lumbar traction 15 min Assessment AND Plan 1. Segmental and somatic dysfunction of thoracic region M99.02 Orders Orders: 2. Lumbar radiculopathy M54.16 Orders Orders: 3. Segmental and somatic dysfunction of lumbar region M99.03 Orders Orders: Plan Detail Goals Decrease inflammation Increase ROM Follow Up 2 Weeks Coding Level of Care Code No Charge Diagnoses Segmental and somatic dysfunction of thoracic region M99.02 Lumbar radiculopathy M54.16 Segmental and somatic dysfunction of lumbar region M99.03 Additional Codes Procedures - Traction, Mechanical: Yes (51558) Procedures - Manipulation: 1-2 regions (66959) 09/02/17 4746 <Electronically signed by Kandis Collins D.C.> Date Kandis Collins D.C. Cosigner Signature: Date (if applicable) CC: CHIROPRACTIC REPORT Observed: 08/28/2017 Status: F Source: [place] 4:08 PM [facility] [address] [place] [id number] OFFICE VISIT Date of Service: 08/26/17 MR#: [id number] Acct: [id number] Name: MIGUELITO WALDROP Rep #: [id number] : 1980 Provider: Kandis Collins D.C. Age/Sex: 36/F Location: [facility] Status: Signed Intake Vital Signs08/26/17 Height 5 ft 8 in 08/26/17 Weight: 287 lb 08/26/17 Body Mass Index (BMI) 43.6 Intake Visit Reasons: LOW BACK PAIN Chief Complaint: Low back pain Is patient in pain?: Yes Allergies amoxicillin [Amoxicillin] Allergy (Verified 08/25/17 12:23) Itching Medications Insulin Aspart [Novolog Flexpen] 15 units SC TIDAC #0 flexpen 09/04/16 [Rx Confirmed 08/25/17] Insulin NPH Human [Humulin N Pen] 45 units SC QHS 07/26/17 [History Confirmed 08/25/17] Lisinopril [Zestril] 10 mg PO DAILY 07/26/17 [History Confirmed 08/25/17] Adipex-P PO DAILY 08/02/17 [History Confirmed 08/20/17] cyclobenzaprine 10 mg tablet 10 mg PO TID PRN #20 tab 08/20/17 [Rx Confirmed 08/25/17] ibuprofen 800 mg tablet 800 mg PO TID PRN #30 tab 08/20/17 [Rx Confirmed 08/25/17] Naproxen [Naprosyn] 500 mg PO BID #14 tab 08/25/17 [Rx] PFSH Medical History Diabetes (Acute) Pre-eclampsia, (Acute) Family History Other Diabetes Heart disease Hypertension Social History Smoking Status: Never smoker alcohol intake: never HPI LOW BACK PAIN: Chief Complaint: low back pain Visit Number: 1 Referral source: Sign in and google Details: MIGUELITO WALDROP is a 36 year old F who presents with L sided low back pain. She states that roughly two weeks ago she regi with low back and neck pain, which has progressively gotten worse. Today the patient rates her pain a 7/10 and describes it as a sharp shooting on the L side of the low back, there is a sharp shooting pain radiating into the L upper thigh and leg but she denies any numbness or tingling. Miguelito also complains of neck pain and tightness, this pain is currently rated a 3/10 and is described as a tight ache that comes and goes, there is a presence of headaches. Bending, prolonged standing, lifting and rotating the head to the R causes increased pain, she states that nothing makes the pain decrease. Onset: 08/11/17 Location: neck and low back Duration: constant Aggravating or associated factors: bending, lifting, prolonged standing and leaning the head to the R Pain Quality: aching, dull, cramping, sharp, radiating Exam Musc General: Yes normal posture, normal gait and joint tenderness (L2-L5, L SI) Thoracic/Lumbar Spine: thoracic and lumbar spine normal to inspection, Lasegue's sign positive on the left, pain with thoraco-lumbar ROM with forward flexion, with lateral flexion to the left and with lateral flexion to the right, paraspinal tenderness on the left in the mid lumbar and in the lower lumbar, thoraco-lumbar ROM limited with forward flexion and with lateral flexion to the left, thoraco-lumbar spasm on the left in the lower lumbar Neuro General: alert, awake, oriented x3, gait normal, normal light touch, pain and propioception, no focal motor deficits Ortho Test CERVICAL THORACIC LUMBAR Kemps: Positive, Le Valsalvas: Negative SLR: Negative Iliac Compression: Positive, Le Assessment AND Plan 1. Segmental and somatic dysfunction of lumbar region M99.03 Orders Orders: 2. Lumbar radiculopathy M54.16 Orders Orders: 3. Segmental and somatic dysfunction of pelvic region M99.05 4. Segmental and somatic dysfunction of thoracic region M99.02 Plan Detail Additional Comments Ordered lumbar xrays which revealed mild degenerative change to L4, L5. Goals Decrease inflammation Increase ROM Follow Up 1 Week Coding Level of Care Code Off vis,new,level 3 Diagnoses Segmental and somatic dysfunction of lumbar region M99.03 Lumbar radiculopathy M54.16 Segmental and somatic dysfunction of pelvic region M99.05 Segmental and somatic dysfunction of thoracic region M99.02 08/28/17 3193 <Electronically signed by Kandis Collins D.C.> Date Kandis Dossi D.C. Cosigner Signature: Date (if applicable) CC: EMERGENCY DEPARTMENT Observed: 08/25/2017 Status: F Source: [place] SUMMARY 12:47 PM [facility] REPOSITORY [facility] Medical Records Department [address] [place] [address] Emergency Department Summary 08/25/17 1241 MR#: [id number] Acct: [id number] Name: MIGUELITO WALDROP Rep #: [id number] : 1980 36 From: Kenneth Israel MD PCP: Sneha Briceno DO Status: PRE ER - ER Visit Summary Date of Service: 08/25/17 Chief Complaint: Left lower back pain History of Present Illness: The patient is a 36 F who presents because of left lower back pain for 2 weeks. There is no history of trauma. She complains of pain radiating down the left leg. She did not answer promptly with regards to if the pain radiated anteriorly, laterally, medially or posteriorly. The pain apparently goes to the midcalf. She denies quadricep weakness or footdrop. She denies bowel bladder dysfunction. She denies saddle paresthesia or anesthesia. She was seen in urgent care last week and placed on ibuprofen and Flexeril without improvement. Pain is worse with movement. Other than prior back strain she has no history of back problems. She denies any night sweats. She denies weight loss. Physical Examination: Vitals remarkable for blood pressure 151/105 heart rate 115. BMI is 43. She appears upset at the fact that I asked her as many questions as I did. HEENT exam is unremarkable. Heart is regular without murmur, gallop or rub. S1 and S2 are normal. Lungs are clear to auscultation with good movement of air bilaterally. Examination of low back reveals a tattoo. There is no tenderness. There is no lesions. Straight leg test is negative. Crossover test is negative. Patella and ankle reflex are 1+. EHL is intact. No Babinski or clonus was noted bilaterally. DP pulses palpable bilateral. Patient gait was observed. There is no foot drop. He is able to walk on her heels and toes. Test Results: None are indicated Emergency Department Course and Treatment: Anti-inflammatories since there is no contraindication Treatment Plan: Rest, ice anti-inflammatory and weight reduction Disposition: Discharged to home to follow-up with PCP Impression: Left lower back pain a muscular etiology/muscle strain This note was generated with Proficient dictation software. It may contain incorrect words, spelling, and punctuation that were not noted in review of the chart prior to signing ED Disposition - Plan for ED Patient: Disposition: Home or Assisted Living Chief Complaint: Back Instructions: ED Sprain Strain Lumbar, ED Hypertension Poss Prescriptions: Naproxen [Naprosyn] 500 mg PO BID #14 tab Referrals: Sneha Briceno DO [Primary Care Provider] - 1-2 Weeks Additional Instructions: Your blood pressure is elevated and you need to have your blood pressure reassessed in 1-2 weeks. What to do if you have Problems For any increased pain, shortness of breath, bleeding, nausea or vomiting, chest pain, or any unexpected problems, contact your Primary Care Provider. Call [facility] ([phone]) or report to the closest Emergency Room. Call 911 if necessary. 08/25/17 1247 <Electronically signed by Kenneth Israel MD> Date Kenneth Israel MD Cosigner Signature (If Indicated): Date CC: Sneha Briceno DO URGENT CARE VISIT Observed: 08/20/2017 Status: F Source: [place] REPORT 5:25 PM [facility] [address] [place] [address] 6 [place] [address] OFFICE VISIT Date of Service: 08/20/17 MR#: [id number] Acct: [id number] Name: MIGUELITO WALDROP Rep #: [id number] : 1980 Provider: Baltazar CERVANTES Age/Sex: 36/F Location: [facility] Status: Signed Intake Vital Signs08/20/17 Height 5 ft 10 in Intake Visit Reasons: LOWER BACK PAIN/SCIATICA Chief Complaint: Low back pain with left lateral thigh paresthesias Is patient in pain?: Yes (back into L leg ) Allergies amoxicillin [Amoxicillin] Allergy (Verified 08/20/17 17:01) Itching Medications Insulin Aspart [Novolog Flexpen] 15 units SC TIDAC #0 flexpen 09/04/16 [Rx Confirmed 08/20/17] Insulin NPH Human [Humulin N Pen] 45 units SC QHS 07/26/17 [History Confirmed 08/20/17] Lisinopril [Zestril] 10 mg PO DAILY 07/26/17 [History Confirmed 08/20/17] Adipex-P PO DAILY 08/02/17 [History Confirmed 08/20/17] cyclobenzaprine 10 mg tablet 10 mg PO TID PRN #20 tab 08/20/17 [Rx Confirmed 08/20/17] ibuprofen 800 mg tablet 800 mg PO TID PRN #30 tab 08/20/17 [Rx Confirmed 08/20/17] PFSH Medical History Diabetes (Acute) Pre-eclampsia, (Acute) Family History Other Diabetes Heart disease Hypertension Social History Smoking Status: Never smoker alcohol intake: never HPI HPI Chief Complaint: Low back pain with left lateral thigh paresthesias Details: MIGUELITO WALDROP, is a 36 F who presents to the office today for evaluation of low back pain with left lateral thigh paresthesias. Patient notes symptoms began approximately 2 weeks ago of unknown cause. She she notes no history of trauma to her low back. She notes initially being evaluated in treatment at [facility] in [place], where she was prescribed prednisone to assist with her symptoms. She notes this made her sugars are controlled as she is a diabetic and therefore stopped taking. She notes her symptoms are aggravated with prolonged sitting or prolonged standing and static position. She notes no caudal complaints. She notes no other complaints at this time. ROS Const Constitutional: No excessive sweating, abnormal sleep pattern, chills, fever(s), night sweats or body ache Resp Respiratory: No cough, chest congestion or shortness of breath Cardio Cardiology: No excessive sweating, chest pain at rest, chest pain with exertion, shortness of breath, dyspnea on exertion, irregular heart rhythm, generalized swelling or leg pain with exertion Gastro GI: No abdominal pain, change in stool character or change in bowel habits Genitourinary-Female: No urinary incontinence Musc Musculoskeletal: Positive for back pain; no joint pain, limited range of motion, tingling or numbness Skin Skin: No change in hair or sores Neuro Neurology: No tingling or numbness Psych Psychiatric: No abnormal sleep pattern Endo Endocrine: No excessive sweating Exam Const General: cooperative, healthy appearing, no acute distress, uncomfortable Nutritional Appearance: average body habitus Orientation: alert, awake, oriented x3 Chest Chest palpation AND inspection: normal inspection of the chest Resp Effort AND Inspection: normal respiratory effort, able to speak in complete sentences, symmetric chest movement, no cough Auscultation: Bilateral: Clear to Auscultation Cardio Palpation: normal PMI Rate: regular rate Rhythm: regular rhythm Heart Sounds: S1 normal, S2 normal, no gallops, no murmurs, no rubs Pulses: radial pulses present Musc Thoracic/Lumbar Spine: thoracic and lumbar spine normal to inspection, No surgical scar(s) present, pain with thoraco-lumbar ROM, paraspinal tenderness, straight leg raise positive (Left side only, + Bragard's on left) Skin General: no rashes or lesions noted Neuro General: alert, awake, oriented x3, gait normal Cognition: normal cognition Speech: speech normal Gait: normal gait Motor: muscle tone normal throughout Sensory Exam: no sensory deficits noted (except left lateral thigh paresthesias to palpation) Assessment AND Plan Problems 1. Lumbar strain S39.012A 2. Lumbar radiculopathy M54.16 Plan Ibuprofen and Flexeril as prescribed today. Home range of motion exercises, rest, ice applications as needed as instructed today. Follow-up with PCP or orthopedics in 7-10 days should symptoms not improved, sooner should symptoms worsen or any other concerns develop. Patient states acknowledging understanding all of the above. This note was generated with [employer] software. It may contain incorrect words, spelling, and punctuation that were not noted in checking the note before signing. Medications New: Coding Level of Care Code Off vis,est,level 3 Diagnoses Lumbar strain S39.012A Lumbar radiculopathy M54.16 08/20/17 0257 <Electronically signed by Baltazar CERVANTES> Date Baltazar Arguello Signature: Date (if applicable) CC: PROGRESS Observed: 08/13/2017 Status: COMPLETED Source: [place] 9:00 AM [facility] REPOSITORY HNO ID: [id number] Author: Bianca Burr (Jose) Fernando Service: (none) Author Type: Nurse Practitioner Type: Progress Notes Filed: 08/13/2017 9:04 AM Note Text: Subjective HPI Patient presents with: Left side Neck Pain x 2 days Denies known injury. States woke up during the night with pain in her neck. Rates 8/10, aching and constant. Tylenol otc with minimal relief. Denies chest pain, palpitations, sob, radiating arm pain, fever, chills, n/v, dizziness, burred vision, or headaches. ROS All other reviewed and negative other than HPI. PAST MEDICAL HISTORY Diagnosis Date - Anemia in 02/11/2013 - Chronic hypertension in 04/15/2013 - Diabetes (HCC) - Diabetes, gestational - Dysthymic disorder Depression (non-psychotic) - Elevated blood sugar Patient on Glucophage - FRACTURE AGE11 WRIST - Infertility, anovulation 08/14/2010 - Pre-eclampsia in third trimester 08/08/2016 PAST SURGICAL HISTORY Procedure Laterality Date - NONE ALLERGIES Amoxicillin MEDICATIONS predniSONE (DELTASONE) 20 mg tablet Take 2 tablets by mouth once daily for 5 days. Take daily with food. cyclobenzaprine (FLEXERIL) 10 mg tablet Take 1 tablet by mouth three times daily as needed for up to 7 days. PHENTERMINE HCL (ADIPEX-P ORAL) Take by mouth. Dextromethorphan-guaiFENesin (MUCINEX DM) 60-1,200 mg Tb12 Take 1 tablet by mouth twice daily. lisinopril (ZESTRIL, PRINIVIL) 10 mg tablet Take 10 mg by mouth once daily. acetaminophen (TYLENOL EXTRA STRENGTH) 500 mg tablet Take 2 tablets by mouth every 6 hours as needed for Pain. FOR PAIN. insulin NPH human (HUMULIN N) injection Inject 60 Units subcutaneously daily at bedtime. Urine Glucose-Ketones Test (KETO-DIASTIX) strp 1 Strip as needed. insulin regular human (NOVOLIN R,HUMULIN R) 100 unit/mL injection Inject 23 Units subcutaneously three times daily before meals. Vskeoczr-En-Rhc-Fe-FA ( VITAMIN) tab Take 1 tablet by mouth once daily. aspirin, enteric coated (ASPIR-81) 81 mg EC tablet Take 1 tablet by mouth once daily. insulin NPH human (NOVOLIN N, HUMULIN N) injection Inject 20 units at bedtime. Insulin Syringe-Needle U-100 1 mL 29 gauge x 1/2 syrg Use one syringe for each dose. 4 per day blood sugar diagnostic (FREESTYLE LITE STRIPS) test strip Test blood sugar(s) 2x daily. Dx: E11.65. Insulin: No lancets (FREESTYLE LANCETS) 28 gauge misc Test blood sugar(s) 2x daily. Dx: E11.65. Insulin: No FAMILY HISTORY Problem Relation Age of Onset - Hypertension Mother - Hypertension Maternal Grandmother - Heart Maternal Grandfather [place] - Diabetes Paternal Grandmother - Diabetes Paternal Grandfather Social History Substance Use Topics - Smoking status: Former Smoker Years: 6.00 Types: Cigarettes Quit date: 04/28/2011 - Smokeless tobacco: Never Used - Alcohol use Yes Comment: Occasionally,NOT WHILE Objective Physical Exam Constitutional: She is well-developed, well-nourished, and in no distress. HENT: Head: Normocephalic. Right Ear: Tympanic membrane, external ear and ear canal normal. Left Ear: Tympanic membrane, external ear and ear canal normal. Nose: Nose normal. Mouth/Throat: Oropharynx is clear and moist. Eyes: Conjunctivae and EOM are normal. Pupils are equal, round, and reactive to light. Right eye exhibits no discharge. Left eye exhibits no discharge. Neck: Muscular tenderness (left sternocleidomastoid muscle spasm noted) present. No spinous process tenderness present. Carotid bruit is not present. No rigidity. Edema (moderate) and decreased range of motion (due to pain) present. No erythema present. No Brudzinski's sign noted. Pulmonary/Chest: No stridor. Nursing note and vitals reviewed. ASSESSMENT/PLAN: 1. Strain of sternocleidomastoid muscle, initial encounter - ICD9: 847.0, ICD10: S16.1XXA -Flexeril -Prednisone -Intermittent ice localized x 2 days followed by warm moist heating stretching/massage as tolerated. -F/u with pcp in 3-5 days or sooner if symptoms are not improving or worsening Prescription instructions reviewed with patient as applicable. Patient advised if symptoms do not improve or if symptoms worsen sooner, to contact their primary care physician. Potential red flag symptoms discussed with the patient. Reviewed appropriate action plan to take if red flag symptoms occur. Patient agreeable to treatment plan. Bianca Potts APRN.PRESIDENT [employer] CEO CNOV Observed: 08/13/2017 Status: COMPLETED Source: [place] 8:[address] [facility] REPOSITORY Office Visit (WSTR) MIGUELITO WALDROP ([id number]) 1980 F Date Time Provider Department 08/13/17 8:30 AM BIANCA POTTS [facility]JOSE[facility] During your visit today, we recorded the following information about you: Temperature Pulse Respiration Blood pressure 98 degrees 90/minute 18/minute 120/90 Weight 127.5 kg Bianca Potts APRN.CNP 08/13/2017 8:51 AM Signed NECK STRAIN GENERAL INFORMATION: Neck strains are caused when the muscles of the neck are stretched and pulled. This can happen in a car accident or when wrestling, but can also occur with minor activity. Sometimes people even wake up from sleep with a neck strain! INSTRUCTIONS: 1. Reduce your activity until the pain is improved; rest in bed if needed. 2. If you can stand it, applying ice for the first 24 - 48 hours may keep the swelling down. Place ice in a plastic bag and apply over a towel for 10 minutes at a time. Some people find this too uncomfortable, and prefer warm compresses. In this case, apply a warm heating pad or warm, moist towels for 10 minutes at a time. This can be continued after the initial 48 hours as well to speed healing and for comfort. 3. If the physician has not prescribed medication, you may take acetaminophen, ibuprofen, or naproxen [id number]. Read the instructions and follow any precautions, however. If the doctor has prescribed medication, take it exactly as recommended. Muscle relaxants and strong pain medications can make you drowsy, so avoid driving and operating dangerous machinery if you are taking any of these. 4. If you were given a soft cervical (neck) collar, wear it for days. Do not drive while wearing a cervical collar as you can not turn your head completely and it could be dangerous. 5. Sleeping without a pillow may help ease the pain. You also may sleep with a cervical pillow (a special pillow you can buy at a medical supply store). You also may use a small towel rolled up tightly (2 inches thick) and place it under your neck. RETURN IMMEDIATELY IF: 1. You have pain, numbness, tingling, or weakness of your arms, legs, face, or scalp. 2. You have shortness of breath, a hoarse voice, or difficulty swallowing. 3. You have increasing headaches or difficulty seeing. Bianca Potts APRN.PRESIDENT & CEO 08/13/2017 9:04 AM Signed Subjective HPI Patient presents with: Left side Neck Pain x 2 days Denies known injury. States woke up during the night with pain in her neck. Rates 8/10, aching and constant. Tylenol otc with minimal relief. Denies chest pain, palpitations, sob, radiating arm pain, fever, chills, n/v, dizziness, burred vision, or headaches. ROS All other reviewed and negative other than HPI. PAST MEDICAL HISTORY Diagnosis Date - Anemia in 02/11/2013 - Chronic hypertension in 04/15/2013 - Diabetes (HCC) - Diabetes, gestational - Dysthymic disorder Depression (non-psychotic) - Elevated blood sugar Patient on Glucophage - FRACTURE AGE11 WRIST - Infertility, anovulation 08/14/2010 - Pre-eclampsia in third trimester 08/08/2016 PAST SURGICAL HISTORY Procedure Laterality Date - NONE ALLERGIES Amoxicillin MEDICATIONS predniSONE (DELTASONE) 20 mg tablet Take 2 tablets by mouth once daily for 5 days. Take daily with food. cyclobenzaprine (FLEXERIL) 10 mg tablet Take 1 tablet by mouth three times daily as needed for up to 7 days. PHENTERMINE HCL (ADIPEX-P ORAL) Take by mouth. Dextromethorphan-guaiFENesin (MUCINEX DM) 60-1,200 mg Tb12 Take 1 tablet by mouth twice daily. lisinopril (ZESTRIL, PRINIVIL) 10 mg tablet Take 10 mg by mouth once daily. acetaminophen (TYLENOL EXTRA STRENGTH) 500 mg tablet Take 2 tablets by mouth every 6 hours as needed for Pain. FOR PAIN. insulin NPH human (HUMULIN N) injection Inject 60 Units subcutaneously daily at bedtime. Urine Glucose-Ketones Test (KETO-DIASTIX) strp 1 Strip as needed. insulin regular human (NOVOLIN R,HUMULIN R) 100 unit/mL injection Inject 23 Units subcutaneously three times daily before meals. Rqzylpmd-Wh-Fcz-Fe-FA ( VITAMIN) tab Take 1 tablet by mouth once daily. aspirin, enteric coated (ASPIR-81) 81 mg EC tablet Take 1 tablet by mouth once daily. insulin NPH human (NOVOLIN N, HUMULIN N) injection Inject 20 units at bedtime. Insulin Syringe-Needle U-100 1 mL 29 gauge x 1/2ANDquot; syrg Use one syringe for each dose. 4 per day blood sugar diagnostic (FREESTYLE LITE STRIPS) test strip Test blood sugar(s) 2x daily. Dx: E11.65. Insulin: No lancets (FREESTYLE LANCETS) 28 gauge misc Test blood sugar(s) 2x daily. Dx: E11.65. Insulin: No FAMILY HISTORY Problem Relation Age of Onset - Hypertension Mother - Hypertension Maternal Grandmother - Heart Maternal Grandfather [place] - Diabetes Paternal Grandmother - Diabetes Paternal Grandfather Social History Substance Use Topics - Smoking status: Former Smoker Years: 6.00 Types: Cigarettes Quit date: 04/28/2011 - Smokeless tobacco: Never Used - Alcohol use Yes Comment: Occasionally,NOT WHILE Objective Physical Exam Constitutional: She is well-developed, well-nourished, and in no distress. HENT: Head: Normocephalic. Right Ear: Tympanic membrane, external ear and ear canal normal. Left Ear: Tympanic membrane, external ear and ear canal normal. Nose: Nose normal. Mouth/Throat: Oropharynx is clear and moist. Eyes: Conjunctivae and EOM are normal. Pupils are equal, round, and reactive to light. Right eye exhibits no discharge. Left eye exhibits no discharge. Neck: Muscular tenderness (left sternocleidomastoid muscle spasm noted) present. No spinous process tenderness present. Carotid bruit is not present. No rigidity. Edema (moderate) and decreased range of motion (due to pain) present. No erythema present. No Brudzinski's sign noted. Pulmonary/Chest: No stridor. Nursing note and vitals reviewed. ASSESSMENT/PLAN: 1. Strain of sternocleidomastoid muscle, initial encounter - ICD9: 847.0, ICD10: S16.1XXA -Flexeril -Prednisone -Intermittent ice localized x 2 days followed by warm moist heating stretching/massage as tolerated. -F/u with pcp in 3-5 days or sooner if symptoms are not improving or worsening Prescription instructions reviewed with patient as applicable. Patient advised if symptoms do not improve or if symptoms worsen sooner, to contact their primary care physician. Potential red flag symptoms discussed with the patient. Reviewed appropriate action plan to take if red flag symptoms occur. Patient agreeable to treatment plan. Bianca Potts APRN.PRESIDENT & CEO Referring Provider: SELF [[id number]] Allergies As of Date: 08/13/2017 Noted Allergy Reaction AMOXICILLIN 07/15/2008 9 - Itching Date Reviewed: 08/13/2017 Reviewed by: Krystal Luciano Ma - Fully Assessed Reason for Visit: Neck Pain [135] Primary Visit Diagnosis:Strain of sternocleidomastoid muscle, initial encounter [S16.1XXA] Order(s):predniSONE (DELTASONE) 20 mg tabletTake 2 tablets by mouth once daily for 5 days. Take daily with food.Disp: 4 tabletRfl: 0 cyclobenzaprine (FLEXERIL) 10 mg tabletTake 1 tablet by mouth three times daily as needed for up to 7 days.Disp: 21 tabletRfl: 0 Prescriptions as of 08/13/2017 Sig: PREDNISONE 20 MG TABLET Take 2 tablets by mouth once * CYCLOBENZAPRINE 10 MG TABLET Take 1 tablet by mouth three * ADIPEX-P ORAL Take by mouth. DEXTROMETHORPHAN-GUAIFENESIN * Take 1 tablet by mouth twice * LISINOPRIL 10 MG TABLET Take 10 mg by mouth once devorah* ACETAMINOPHEN 500 MG TABLET Take 2 tablets by mouth every* INSULIN NPH ISOPHANE U-100 HU* Inject 60 Units subcutaneousl* URINE GLUCOSE-KETONES TEST ST* 1 Strip as needed. INSULIN U-100 REGULAR HUMAN 1* Inject 23 Units subcutaneousl* Patient taking differently: Inject 26 Units subcutaneousl* VITAMIN,CALCIUM,MINE* Take 1 tablet by mouth once d* ASPIRIN 81 MG TABLET,DELAYED * Take 1 tablet by mouth once d* INSULIN NPH ISOPHANE U-100 HU* Inject 20 units at bedtime. Patient taking differently: Inject 50 Units subcutaneousl* INSULIN SYRINGE-NEEDLE U-100 * Use one syringe for each dose* BLOOD SUGAR DIAGNOSTIC STRIPS Test blood sugar(s) 2x daily.* LANCETS 28 GAUGE Test blood sugar(s) 2x daily.* Problem List As Of Date 08/13/2017 Noted Resolved Infertility, anovulation [N97.0] INVALID FOR*09/05/2011 Glucose intolerance (impaired glucose tolerance*INVALID FOR*06/20/2011 Abnormal maternal glucose tolerance, antepartum*INVALID FOR*07/23/2012 Gestational diabetes mellitus [O24.419] INVALID FOR*07/23/2012 More... Supervision of other high-risk [O09.8*INVALID FOR*07/23/2012 Type 2 diabetes mellitus (HCC) [E11.9] INVALID FOR*02/01/2016 More... with uncertain dates [Z34.90] INVALID FOR*04/15/2013 More... Major depressive disorder (HCC) [F32.9] INVALID FOR* More... Exposure to STD [Z20.2] INVALID FOR*02/01/2016 More... Obesity in [O99.210] INVALID FOR*02/01/2016 Short interval between pregnancies complicating*INVALID FOR*04/15/2013 Anemia in [O99.019] INVALID FOR*02/01/2016 Chronic hypertension in [O10.919] INVALID FOR*02/01/2016 More... Myalgia [M79.1] INVALID FOR* DDD (degenerative disc disease), lumbar [M51.36]INVALID FOR* More... Diabetes mellitus in in third trimest*INVALID FOR* More... History of depression [Z86.59] INVALID FOR* More... STD exposure [Z20.2] INVALID FOR* More... Patient requested diagnostic testing [Z01.89] INVALID FOR*08/16/2016 More... History of gestational hypertension [Z87.59] INVALID FOR*02/06/2016 Medication exposure during first trimester of p*INVALID FOR* More... Chronic hypertension complicating or reason for*INVALID FOR* Pre-eclampsia in third trimester [O14.93] INVALID FOR* More... Other instructions from your clinician: NECK STRAIN GENERAL INFORMATION: Neck strains are caused when the muscles of the neck are stretched and pulled. This can happen in a car accident or when wrestling, but can also occur with minor activity. Sometimes people even wake up from sleep with a neck strain! INSTRUCTIONS: 1. Reduce your activity until the pain is improved; rest in bed if needed. 2. If you can stand it, applying ice for the first 24 - 48 hours may keep the swelling down. Place ice in a plastic bag and apply over a towel for 10 minutes at a time. Some people find this too uncomfortable, and prefer warm compresses. In this case, apply a warm heating pad or warm, moist towels for 10 minutes at a time. This can be continued after the initial 48 hours as well to speed healing and for comfort. 3. If the physician has not prescribed medication, you may take acetaminophen, ibuprofen, or naproxen oxcj-mee-cczonyz. Read the instructions and follow any precautions, however. If the doctor has prescribed medication, take it exactly as recommended. Muscle relaxants and strong pain medications can make you drowsy, so avoid driving and operating dangerous machinery if you are taking any of these. 4. If you were given a soft cervical (neck) collar, wear it for days. Do not drive while wearing a cervical collar as you can not turn your head completely and it could be dangerous. 5. Sleeping without a pillow may help ease the pain. You also may sleep with a cervical pillow (a special pillow you can buy at a medical supply store). You also may use a small towel rolled up tightly (2 inches thick) and place it under your neck. RETURN IMMEDIATELY IF: 1. You have pain, numbness, tingling, or weakness of your arms, legs, face, or scalp. 2. You have shortness of breath, a hoarse voice, or difficulty swallowing. 3. You have increasing headaches or difficulty seeing. Prescriptions ordered this encounter Disp Refills Start End PREDNISONE 20 MG TABLET 4 ta* 0 08/13/2017 08/18/2017 Route: ORAL Sig: Take 2 tablets by mouth once daily for 5 days. Take daily with food. CYCLOBENZAPRINE 10 MG TABLET 21 t* 0 08/13/2017 08/20/2017 Route: ORAL Sig: Take 1 tablet by mouth three times daily as needed for up to 7 days. Disposition: Return if symptoms worsen or fail to improve. Follow-up and Disposition History Recorded Letter Text Bianca Potts APRN.[facility] [address] [facility] [address] Dept: [phone] 08/13/2017 Miguelito Waldrop [address] [facility] [address] To Whom it May Concern: This is to certify that Miguelito Waldrop was seen at our office for medical care. Miguelito may return to work on 08/13/2017. If you have any questions please feel free to call. Sincerely: Bianca Potts APRN.[facility] Encounter Status:Closed by BIANCA POTTS on 08/13/17 PROGRESS Observed: 08/07/2017 Status: COMPLETED Source: [place] 8:59 AM [facility] [place] REPOSITORY O ID: [id number] Author: Eduin Pocne) Service: (none) Author Type: Nurse Practitioner Type: Progress Notes Filed: 08/07/2017 9:56 AM Note Text: Subjective HPI HPI Miguelito Waldrop is a 36 year old female who presents today for CC of sore throat. This started 2 weeks ago. Has tried nothing. Symptoms are worsened by nothing. Risk factors sick exposures at Home/work. Right ear pain for 2-3 days .Patient presents with: Sore Throat Ear Pain PAST MEDICAL HISTORY Diagnosis Date - Anemia in 02/11/2013 - Chronic hypertension in 04/15/2013 - Diabetes (HCC) - Diabetes, gestational - Dysthymic disorder Depression (non-psychotic) - Elevated blood sugar Patient on Glucophage - FRACTURE AGE11 WRIST - Infertility, anovulation 08/14/2010 - Pre-eclampsia in third trimester 08/08/2016 PAST SURGICAL HISTORY Procedure Laterality Date - NONE ALLERGIES Amoxicillin MEDICATIONS PHENTERMINE HCL (ADIPEX-P ORAL) Take by mouth. lisinopril (ZESTRIL, PRINIVIL) 10 mg tablet Take 10 mg by mouth once daily. acetaminophen (TYLENOL EXTRA STRENGTH) 500 mg tablet Take 2 tablets by mouth every 6 hours as needed for Pain. FOR PAIN. insulin NPH human (HUMULIN N) injection Inject 60 Units subcutaneously daily at bedtime. Insulin Syringe-Needle U-100 1 mL 29 gauge x 1/2 syrg Use one syringe for each dose. 4 per day blood sugar diagnostic (FREESTYLE LITE STRIPS) test strip Test blood sugar(s) 2x daily. Dx: E11.65. Insulin: No lancets (FREESTYLE LANCETS) 28 gauge misc Test blood sugar(s) 2x daily. Dx: E11.65. Insulin: No Dextromethorphan-guaiFENesin (MUCINEX DM) 60-1,200 mg Tb12 Take 1 tablet by mouth twice daily. Urine Glucose-Ketones Test (KETO-DIASTIX) strp 1 Strip as needed. insulin regular human (NOVOLIN R,HUMULIN R) 100 unit/mL injection Inject 23 Units subcutaneously three times daily before meals. Guzhljhq-Kh-Kag-Fe-FA ( VITAMIN) tab Take 1 tablet by mouth once daily. aspirin, enteric coated (ASPIR-81) 81 mg EC tablet Take 1 tablet by mouth once daily. insulin NPH human (NOVOLIN N, HUMULIN N) injection Inject 20 units at bedtime. FAMILY HISTORY Problem Relation Age of Onset - Hypertension Mother - Hypertension Maternal Grandmother - Heart Maternal Grandfather [place] - Diabetes Paternal Grandmother - Diabetes Paternal Grandfather Social History Substance Use Topics - Smoking status: Former Smoker Years: 6.00 Types: Cigarettes Quit date: 04/28/2011 - Smokeless tobacco: Never Used - Alcohol use Yes Comment: Occasionally,NOT WHILE Review of Systems Constitutional: Negative for chills, fever and weight loss. HENT: Positive for congestion and sore throat. Negative for ear pain and nosebleeds. Respiratory: Positive for cough. Negative for shortness of breath and wheezing. Musculoskeletal: Negative for neck pain. Objective Physical Exam Constitutional: She is oriented to person, place, and time and well-developed, well-nourished, and in no distress. Non-toxic appearance. She does not have a sickly appearance. No distress. HENT: Head: Normocephalic and atraumatic. Right Ear: Hearing, tympanic membrane, external ear and ear canal normal. Left Ear: Hearing, tympanic membrane, external ear and ear canal normal. Nose: Nose normal. Mouth/Throat: Uvula is midline and mucous membranes are normal. Posterior oropharyngeal erythema present. No oropharyngeal exudate, posterior oropharyngeal edema or tonsillar abscesses. Eyes: Conjunctivae and lids are normal. Pupils are equal, round, and reactive to light. Right eye exhibits no discharge. Left eye exhibits no discharge. No scleral icterus. Neck: Trachea normal and normal range of motion. Neck supple. Cardiovascular: Normal rate, regular rhythm and normal heart sounds. Pulmonary/Chest: Effort normal and breath sounds normal. Lymphadenopathy: She has no cervical adenopathy. Neurological: She is alert and oriented to person, place, and time. Skin: No rash noted. She is not diaphoretic. ASSESSMENT/PLAN: 1. Strep throat - ICD9: 034.0, ICD10: J02.0 (primary diagnosis) - Rapid Strep positive in the office today - antibiotic as written and Zithromax for PCN allergy. - Discussed supportive care treatment with fluids, rest and analgesia. - Contagious dz precautions discussed- including considered contagious until on antibiotics for 24 hours - The patient should follow up in 3-5 days if symptoms persist or worsen - Call back if drooling, increased temperature, symptoms of dehydration and/or still sick in one week - AZITHROMYCIN 250 MG TABLET - RAPID STREP TEST B/O 2. Right ear pain - ICD9: 388.70, ICD10: H92.01 -unclear etiology, f/u with pcp if continues. Prescription instructions reviewed with patient as applicable. Patient advised if symptoms do not improve or if symptoms worsen sooner, to contact the office for further evaluation by their primary care physician. Potential red flag symptoms discussed with the patient. Reviewed appropriate action plan to take if red flag symptoms occur. Patient agreeable to treatment plan. Eduin Manning APRN.LORENA OLIVO Observed: 08/07/2017 Status: COMPLETED Source: [place] 8:[address] [facility] REPOSITORY Office Visit (WSTR) MIGUELITO WALDROP ([id number]) 1980 F Date Time Provider Department 08/07/17 8:45 AM EDUIN MANNING) [facility] During your visit today, we recorded the following information about you: Temperature Pulse Respiration Blood pressure 98.8 degrees 66/minute 16/minute 122/84 Weight 126.1 kg Eduin Manning APRN.CNP 08/07/2017 9:56 AM Signed Subjective HPI HPI Miguelito Waldrop is a 36 year old female who presents today for CC of sore throat. This started 2 weeks ago. Has tried nothing. Symptoms are worsened by nothing. Risk factors sick exposures at Home/work. Right ear pain for 2-3 days .Patient presents with: Sore Throat Ear Pain PAST MEDICAL HISTORY Diagnosis Date - Anemia in 02/11/2013 - Chronic hypertension in 04/15/2013 - Diabetes (HCC) - Diabetes, gestational - Dysthymic disorder Depression (non-psychotic) - Elevated blood sugar Patient on Glucophage - FRACTURE AGE11 WRIST - Infertility, anovulation 08/14/2010 - Pre-eclampsia in third trimester 08/08/2016 PAST SURGICAL HISTORY Procedure Laterality Date - NONE ALLERGIES Amoxicillin MEDICATIONS PHENTERMINE HCL (ADIPEX-P ORAL) Take by mouth. lisinopril (ZESTRIL, PRINIVIL) 10 mg tablet Take 10 mg by mouth once daily. acetaminophen (TYLENOL EXTRA STRENGTH) 500 mg tablet Take 2 tablets by mouth every 6 hours as needed for Pain. FOR PAIN. insulin NPH human (HUMULIN N) injection Inject 60 Units subcutaneously daily at bedtime. Insulin Syringe-Needle U-100 1 mL 29 gauge x 1/2ANDquot; syrg Use one syringe for each dose. 4 per day blood sugar diagnostic (FREESTYLE LITE STRIPS) test strip Test blood sugar(s) 2x daily. Dx: E11.65. Insulin: No lancets (FREESTYLE LANCETS) 28 gauge misc Test blood sugar(s) 2x daily. Dx: E11.65. Insulin: No Dextromethorphan-guaiFENesin (MUCINEX DM) 60-1,200 mg Tb12 Take 1 tablet by mouth twice daily. Urine Glucose-Ketones Test (KETO-DIASTIX) strp 1 Strip as needed. insulin regular human (NOVOLIN R,HUMULIN R) 100 unit/mL injection Inject 23 Units subcutaneously three times daily before meals. Haaeqgfz-Cy-Jbv-Fe-FA ( VITAMIN) tab Take 1 tablet by mouth once daily. aspirin, enteric coated (ASPIR-81) 81 mg EC tablet Take 1 tablet by mouth once daily. insulin NPH human (NOVOLIN N, HUMULIN N) injection Inject 20 units at bedtime. FAMILY HISTORY Problem Relation Age of Onset - Hypertension Mother - Hypertension Maternal Grandmother - Heart Maternal Grandfather [place] - Diabetes Paternal Grandmother - Diabetes Paternal Grandfather Social History Substance Use Topics - Smoking status: Former Smoker Years: 6.00 Types: Cigarettes Quit date: 04/28/2011 - Smokeless tobacco: Never Used - Alcohol use Yes Comment: Occasionally,NOT WHILE Review of Systems Constitutional: Negative for chills, fever and weight loss. HENT: Positive for congestion and sore throat. Negative for ear pain and nosebleeds. Respiratory: Positive for cough. Negative for shortness of breath and wheezing. Musculoskeletal: Negative for neck pain. Objective Physical Exam Constitutional: She is oriented to person, place, and time and well-developed, well-nourished, and in no distress. Non-toxic appearance. She does not have a sickly appearance. No distress. HENT: Head: Normocephalic and atraumatic. Right Ear: Hearing, tympanic membrane, external ear and ear canal normal. Left Ear: Hearing, tympanic membrane, external ear and ear canal normal. Nose: Nose normal. Mouth/Throat: Uvula is midline and mucous membranes are normal. Posterior oropharyngeal erythema present. No oropharyngeal exudate, posterior oropharyngeal edema or tonsillar abscesses. Eyes: Conjunctivae and lids are normal. Pupils are equal, round, and reactive to light. Right eye exhibits no discharge. Left eye exhibits no discharge. No scleral icterus. Neck: Trachea normal and normal range of motion. Neck supple. Cardiovascular: Normal rate, regular rhythm and normal heart sounds. Pulmonary/Chest: Effort normal and breath sounds normal. Lymphadenopathy: She has no cervical adenopathy. Neurological: She is alert and oriented to person, place, and time. Skin: No rash noted. She is not diaphoretic. ASSESSMENT/PLAN: 1. Strep throat - ICD9: 034.0, ICD10: J02.0 (primary diagnosis) - Rapid Strep positive in the office today - antibiotic as written and Zithromax for PCN allergy. - Discussed supportive care treatment with fluids, rest and analgesia. - Contagious dz precautions discussed- including considered contagious until on antibiotics for 24 hours - The patient should follow up in 3-5 days if symptoms persist or worsen - Call back if drooling, increased temperature, symptoms of dehydration and/or still sick in one week - AZITHROMYCIN 250 MG TABLET - RAPID STREP TEST B/O 2. Right ear pain - ICD9: 388.70, ICD10: H92.01 -unclear etiology, f/u with pcp if continues. Prescription instructions reviewed with patient as applicable. Patient advised if symptoms do not improve or if symptoms worsen sooner, to contact the office for further evaluation by their primary care physician. Potential red flag symptoms discussed with the patient. Reviewed appropriate action plan to take if red flag symptoms occur. Patient agreeable to treatment plan. Eduin Manning APRN.LORENA Manning APRN.LORENA 08/07/2017 9:34 AM Signed STREP INFECTIONS: Streptococcal bacteria can cause a sore throat, ear and sinus infections, and skin diseases. Strep throat is diagnosed by a special throat swab or culture test. These infections require either an antibiotic shot or an oral antibiotic medicine to get rid of all the bacteria and prevent rheumatic fever, a dangerous complication. The symptoms of Strep infection, however, usually get better after just 2-3 days of drug treatment. These infections are very contagious; any close contacts who have a fever, sore throat, or illness symptoms should see their doctor right away. Strep is no longer contagious after 24 hours of antibiotic treatment so you may return to school or work if your fever and pain are better in one day. Strep infections can cause serious complications including throat abscess, rheumatic fever and kidney disease, so be sure to take all your antibiotic medicine. See your doctor or return here if your symptoms worsen or are not improved in 3 days or for diffuculty breathing or inability to swallow. Referring Provider: SELF [200] Allergies As of Date: 08/07/2017 Noted Allergy Reaction AMOXICILLIN 07/15/2008 9 - Itching Date Reviewed: 08/07/2017 Reviewed by: Eduin (Loerna) - Fully Assessed Reason for Visit: Sore Throat [200] Ear Pain [817] Primary Visit Diagnosis:Strep throat [J02.0] Other Visit Diagnosis:Right ear pain [H92.01] Order(s):azithromycin (ZITHROMAX Z-SETH) 250 mg tabletTake 2 tablets day one, then, 1 tablet daily until gone.Disp: 1 PackageRfl: 0 RAPID STREP TEST B/O [[id number]] Order #: [id number] Prescriptions as of 08/07/2017 Sig: ADIPEX-P ORAL Take by mouth. LISINOPRIL 10 MG TABLET Take 10 mg by mouth once devorah* ACETAMINOPHEN 500 MG TABLET Take 2 tablets by mouth every* INSULIN NPH ISOPHANE U-100 HU* Inject 60 Units subcutaneousl* INSULIN SYRINGE-NEEDLE U-100 * Use one syringe for each dose* BLOOD SUGAR DIAGNOSTIC STRIPS Test blood sugar(s) 2x daily.* LANCETS 28 GAUGE Test blood sugar(s) 2x daily.* AZITHROMYCIN 250 MG TABLET Take 2 tablets day one, then,* DEXTROMETHORPHAN-GUAIFENESIN * Take 1 tablet by mouth twice * URINE GLUCOSE-KETONES TEST ST* 1 Strip as needed. INSULIN U-100 REGULAR HUMAN 1* Inject 23 Units subcutaneousl* Patient taking differently: Inject 26 Units subcutaneousl* VITAMIN,CALCIUM,MINE* Take 1 tablet by mouth once d* ASPIRIN 81 MG TABLET,DELAYED * Take 1 tablet by mouth once d* INSULIN NPH ISOPHANE U-100 HU* Inject 20 units at bedtime. Patient taking differently: Inject 50 Units subcutaneousl* Problem List As Of Date 08/07/2017 Noted Resolved Infertility, anovulation [N97.0] INVALID FOR*09/05/2011 Glucose intolerance (impaired glucose tolerance*INVALID FOR*06/20/2011 Abnormal maternal glucose tolerance, antepartum*INVALID FOR*07/23/2012 Gestational diabetes mellitus [O24.419] INVALID FOR*07/23/2012 More... Supervision of other high-risk [O09.8*INVALID FOR*07/23/2012 Type 2 diabetes mellitus (HCC) [E11.9] INVALID FOR*02/01/2016 More... with uncertain dates [Z34.90] INVALID FOR*04/15/2013 More... Major depressive disorder (HCC) [F32.9] INVALID FOR* More... Exposure to STD [Z20.2] INVALID FOR*02/01/2016 More... Obesity in [O99.210] INVALID FOR*02/01/2016 Short interval between pregnancies complicating*INVALID FOR*04/15/2013 Anemia in [O99.019] INVALID FOR*02/01/2016 Chronic hypertension in [O10.919] INVALID FOR*02/01/2016 More... Myalgia [M79.1] INVALID FOR* DDD (degenerative disc disease), lumbar [M51.36]INVALID FOR* More... Diabetes mellitus in in third trimest*INVALID FOR* More... History of depression [Z86.59] INVALID FOR* More... STD exposure [Z20.2] INVALID FOR* More... Patient requested diagnostic testing [Z01.89] INVALID FOR*08/16/2016 More... History of gestational hypertension [Z87.59] INVALID FOR*02/06/2016 Medication exposure during first trimester of p*INVALID FOR* More... Chronic hypertension complicating or reason for*INVALID FOR* Pre-eclampsia in third trimester [O14.93] INVALID FOR* More... Other instructions from your clinician: STREP INFECTIONS: Streptococcal bacteria can cause a sore throat, ear and sinus infections, and skin diseases. Strep throat is diagnosed by a special throat swab or culture test. These infections require either an antibiotic shot or an oral antibiotic medicine to get rid of all the bacteria and prevent rheumatic fever, a dangerous complication. The symptoms of Strep infection, however, usually get better after just 2-3 days of drug treatment. These infections are very contagious; any close contacts who have a fever, sore throat, or illness symptoms should see their doctor right away. Strep is no longer contagious after 24 hours of antibiotic treatment so you may return to school or work if your fever and pain are better in one day. Strep infections can cause serious complications including throat abscess, rheumatic fever and kidney disease, so be sure to take all your antibiotic medicine. See your doctor or return here if your symptoms worsen or are not improved in 3 days or for diffuculty breathing or inability to swallow. Prescriptions ordered this encounter Disp Refills Start End AZITHROMYCIN 250 MG TABLET 1 Pa* 0 08/07/2017 08/12/2017 Sig: Take 2 tablets day one, then, 1 tablet daily until gone. Encounter Status:Closed by EDUIN MANNING CNP on 08/07/17 DISCHARGE INSTRUCTION Observed: 08/02/2017 Status: F Source: [place] 2:09 AM [facility] REPOSITORY [facility] Medical Records Department [address] [place] [address] Discharge Instruction 08/02/178 MR#: [id number] Acct: [id number] Name: MIGUELITO WALDROP Rep #: [id number] : 1980 36 From: Lindsay Pennington DO PCP: Sneha Briceno DO Status: REG ER ED Disposition - Plan for ED Patient: Chief Complaint: Sore Throat Instructions: ED Pharyngitis Viral Report Pending Referrals: Sneha Briceno DO [Primary Care Provider] - 3-5 Days What to do if you have Problems For any increased pain, shortness of breath, bleeding, nausea or vomiting, chest pain, or any unexpected problems, contact your Primary Care Provider. Call [facility] ([phone]) or report to the closest Emergency Room. Call 911 if necessary. 08/02/17 020 <Electronically signed by Lindsay Pennington DO> Date Lindsay Pennington DO Cosigner Signature (If Indicated): Date CC: Sneha Briceno DO EMERGENCY DEPARTMENT Observed: 08/02/2017 Status: F Source: [place] SUMMARY 2:08 AM [facility] REPOSITORY [facility] Medical Records Department [address] [place] [address] Emergency Department Summary 08/02/17205 MR#: [id number] Acct: [id number] Name: MIGUELITO WALDROP Rep #: [id number] : 1980 36 From: Lindsay Pennington DO PCP: Sneha Briceno DO Status: REG ER - ER Visit Summary Date of Service: 08/02/17 Chief Complaint: [Sore throat] History of Present Illness: The patient is a 36 F [presents to the emergency department with sore throat 1 week. Patient initially started with a cough and conjunctivitis. Patient states she was seen in the emergency department a week ago and started on antibiotic eyedrops for conjunctivitis. Patient continues to complain of throat pain especially on the right side. Patient has pain with eating. She denies any fever. Cough is nonproductive. Patient denies sick contacts.] Physical Examination: [HEENT-PERRLA, EOMI. Cranial nerves II through XII grossly intact. TMs clear. Mucous membranes moist. Mild anterior cervical adenopathy. Minimal pharyngeal erythema. Tonsils are not enlarged and there are no exudates. Cardiovascular-regular rate and rhythm without murmur or ectopy Lungs-clear to auscultation, chest wall stable without crepitus or subcu emphysema Abdomen-normoactive bowel sounds, soft, nontender, no rebound or rigidity, no peritoneal signs. Extremities-intact 4, normal range of motion, normal pulses, atraumatic] Test Results: Rapid strep screen was negative] Emergency Department Course and Treatment: [Patient will be dispensed for [place] for pain] Treatment Plan: [Advised use salt water gargles and ibuprofen for discomfort] Disposition: [Discharged to home in stable condition. Patient advised to follow-up with her primary care physician within the next 3-5 days.] Impression: [Pharyngitis-suspect viral] This note was generated with Proficient dictation software. It may contain incorrect words, spelling, and punctuation that were not noted in review of the chart prior to signing ED Disposition - Plan for ED Patient: Chief Complaint: Sore Throat Referrals: Sneha Briceno DO [Primary Care Provider] - What to do if you have Problems For any increased pain, shortness of breath, bleeding, nausea or vomiting, chest pain, or any unexpected problems, contact your Primary Care Provider. Call [facility] ([phone]) or report to the closest Emergency Room. Call 911 if necessary. 08/02/17 0208 <Electronically signed by Lindsay Pennington DO> Date Lindsay Pennington DO Cosigner Signature (If Indicated): Date CC: Sneha Anicetotejinder Observed: 08/02/2017 Status: F Source: [place] STREP A (THRO[place] 1:40 AM [facility] RAPID DONG) REPOSITORY Order Date: 08/02/17 Strep A Rapid Rapid Strep A Screen NEGATIVE A Disk (Conf. Cult) Negative for Strep Group A : All NEGATIVE screens will be confirmed with a culture. Performed By: #### M100.676 #### [facility] [address] [facility] [place], [address] EMERGENCY DEPARTMENT Observed: 07/26/2017 Status: F Source: [place] SUMMARY 2:49 AM [facility] REPOSITORY [facility] Medical Records Department [address] [place] [address] Emergency Department Summary 07/26/17 0136 MR#: [id number] Acct: [id number] Name: MIGUELITO WALDROP Rep #: [id number] : 1980 36 From: Valerio Hurtado DO PCP: Sneha Briceno DO Status: DEP ER - ER Visit Summary Date of Service: 07/26/17 Chief Complaint: [] Eye discharge History of Present Illness: The patient is a 36 F [] complaining of right eye discharge beginning yesterday. Denies visual changes. Denies foreign object sensation. Denies injury to the eye. She is concerned that she has pinkeye. Physical Examination: [] HEENT reveals green-yellow discharge from the medial canthus consistent with bacterial conjunctivitis. Remainder of exam is unremarkable. Test Results: [] None. Emergency Department Course and Treatment: [] Patient provided bacitracin ophthalmic ointment in the emergency department to apply 3 times a day for 3 days. Treatment Plan: [] Follow-up with PCP. Disposition: [] Discharge, stable. Impression: [] Conjunctivitis This note was generated with Laur[employer] Energy[employer] software. It may contain incorrect words, spelling, and punctuation that were not noted in review of the chart prior to signing ED Disposition - Plan for ED Patient: Chief Complaint: Eye Problem Referrals: Sneha Briceno DO [Primary Care Provider] - What to do if you have Problems For any increased pain, shortness of breath, bleeding, nausea or vomiting, chest pain, or any unexpected problems, contact your Primary Care Provider. Call [facility] ([phone]) or report to the closest Emergency Room. Call 911 if necessary. 07/26/17 0249 <Electronically signed by Valerio Hurtado DO> Date Valerio Hurtado DO Cosigner Signature (If Indicated): Date CC: Sneha Briceno DO DISCHARGE INSTRUCTION Observed: 07/26/2017 Status: F Source: [place] 1:38 AM [facility] REPOSITORY [facility] Medical Records Department [address] [place] [address] Discharge Instruction 07/26/17137 MR#: [id number] Acct: [id number] Name: MIGUELITO WALDROP Rep #: [id number] : 1980 36 From: Valerio Hurtado DO PCP: Sneha Briceno DO Status: PRE ER ED Disposition - Plan for ED Patient: Disposition: Home or Assisted Living Chief Complaint: Eye Problem Instructions: ED Conjunctivitis Bacterial Referrals: Sneha Briceno DO [Primary Care Provider] - What to do if you have Problems For any increased pain, shortness of breath, bleeding, nausea or vomiting, chest pain, or any unexpected problems, contact your Primary Care Provider. Call [facility] ([phone]) or report to the closest Emergency Room. Call 911 if necessary. 07/26/17 0138 <Electronically signed by Valerio Hurtado DO> Date Rami Ahmed DO Cosigner Signature (If Indicated): Date CC: Sneha Briceno DO ALLERGIES ALLERGIES DATE TYPE / CODE NAME / CODE REACTION SEVERITY SOURCE 04/01/2018 Drug amoxicillin/[id number] Itching Unknown [place] Allergy/416 3675(RXNORM) Community 089695([facility] ED CT) Repository 07/15/2008 DRUG AMOXICILLIN ITCHING [facility] INGREDI/419 [facility] 312356([facility] ED CT) ENCOUNTERS ENCOUNTERS ADMIT/DISCHARGE ACCOUNT ADMITTING ENCOUNTER LOCATION SOURCE NUMBER CLASS 04/01/2018/04/01/20 [id number] Emergency [address] ing:ED Repository 02/18/2018/02/19/20 [id number] Emergency [address] ing:ED Repository 01/29/2018/01/30/20 [id number] Emergency [address] ing:ED Repository 12/07/2017/12/08/19 [id number] Emergency [address] ing:ED Repository 11/08/2017/11/11/19 [id number] Ambulatory [address] Repository 10/09/2017/10/10/19 [id number] Emergency [address] ing:ED Repository 10/02/2017 [id number] Ambulatory BMSBuilding:B [place] Repository 09/15/2017/09/16/19 [id number] Ambulatory BMSBuilding:B [place] 18 MS.[facility] Repository 09/01/2017/09/02/19 [id number] Ambulatory BMSBuilding:B [place] 18 [facility] Repository 08/26/2017 [id number] Ambulatory [facility] ing:HPRAD Repository 08/26/2017/08/27/19 [id number] Ambulatory BMSBuilding:B [place] 18 [facility] Repository 08/25/2017/08/26/19 [id number] Emergency [place] 18 [facility] ing:ED Repository 08/20/2017/08/21/19 [id number] Ambulatory BMSBuilding:[place] 18 [facility] Repository 08/13/2017/08/15/19 [id number] Ambulatory [address] Repository 08/07/2017/08/09/19 [id number] Ambulatory [address] Repository 08/02/2017/08/03/19 [id number] Emergency [place] 18 [facility] ing:ED Repository 07/26/2017/07/27/19 [id number] Emergency [place] ing:ED Repository PAYERS PAYERS ENCOUNTER GUARANTOR PAYER SUBSCRIBER SOURCE 04/01/2018 MIGUELITO R Primary MIGUELITO R [place] [id number] Insurance:CARESOURCEP MILBURNDOB: [facility] Number: [id number] [id number] Repository [address]Lib: (419) Date:2018-04-01P O [phone] () [address]ATTN: [place] [address]IJ: 04/01/2018 Secondary NOT GIVENUNK [place] Insurance:SELF PAY [facility] Number: Effective Repository Date:2018-04-01 02/18/2018 MIGUELITO R Primary Insurance:[facility] MIGUELITO R [place] [id number] [facility] PLANPolicy MILBURNDOB: [facility] Number: [id number], [place] [id number] Repository [address]Due: (419) Date:[id number] [phone] () [address] [place] [address] 45366OL: 02/18/2018 Secondary NOT GIVENUNK [place] Insurance:SELF PAY [facility] Number: Effective Repository Date:2018-02-18 01/29/2018 MIGUELITO R Primary Insurance:[facility] MIGUELITO R [place] [id number] [facility] Community [place] Number: [id number], [place] [id number] Repository [address]Feo: ([phone]) Date:8807-11-08EO [phone] () [address] [place] [address]47WA: 01/29/2018 Secondary NOT GIVENUNK [place] Insurance:SELF PAY [facility] Number: Effective Repository Date:2018-01-29 12/07/2017 MIGUELITO R Primary Insurance:[facility] MIGUELITO R [place] [id number] E COMMUNITY PLANPolicy MILBURNDOB: [facility] [place] Number: [id number], [place] [id number] Repository [address]Dne: (419) Date:2346-69-47HB [phone] () [address] [place] [address] 13500MF: 12/07/2017 Secondary NOT GIVENUNK [place] Insurance:SELF PAY [facility] Number: Effective Repository Date:2017-12-07 10/09/2017 MIGUELITO R Primary Insurance:[facility] MIGUELITO R [place] [id number] E COMMUNITY PLANPolicy MILBURNDOB: [facility] [place] Number: [id number], [place] [id number] Repository [address]Xrp: ([phone]) Date:[id number] [phone] () [address] [place] [address] 06681ST: 10/09/2017 Secondary NOT GIVENUNK [place] Insurance:SELF [facility] Number: Effective Repository Date:2017-10-09 10/02/2017 MIGUELITO R Primary Insurance:[facility] MIGUELITO R [place] [id number] E COMMUNITY PLANPolicy MILBURNDOB: [facility] [place] Number: [id number], [place] [id number] Repository 71091Nnt: ([phone]) Date:4660-89-95[address]O [phone] () [address] [place] [address] [id number]: 10/02/2017 Secondary NOT GIVENUNK [place] Insurance:SELF [facility] Number: Effective Repository Date:2017-09-25 09/15/2017 MIGUELITO R Primary Insurance:[facility] MIGUELITO R [place] [id number] E COMMUNITY PLANPolicy MILBURNDOB: [facility] Number: [id number], [place] [id number] Repository 47641Oki: ([phone]) Date:1733-32-23YU [phone] () [address] [place] [address] [id number]: 09/15/2017 Secondary NOT GIVENUNK [place] Insurance:SELF [facility] Number: Effective Repository Date:2017-09-15 09/01/2017 MIGUELITO R Primary Insurance:[facility] MIGUELITO R [place] [id number] E COMMUNITY PLANPolicy MILBURNDOB: [facility] Number: [id number], [place] [id number] Repository 68427Doh: ([phone]) Date:0214-57-35MX [phone] () [address] [place] [address] [id number]: 09/01/2017 Secondary NOT GIVENUNK [place] Insurance:SELF [facility] Number: Effective Repository Date:2017-09-01 08/26/2017 MIGUELITO R Primary NOT GIVENUNK [place] [id number] E Insurance:SELF [place] Number: Effective Repository [phone]: ([phone]) Date:2017-08-26 [phone] () 08/26/2017 MIGUELITO R Primary Insurance:[facility] MIGUELITO R [place] [id number] E COMMUNITY PLANPolicy MILBURNDOB: [facility] Number: [id number], [place] [id number] Repository 71841Hcj: ([phone]) Date:0430-76-50QV [phone] () [address] [place] [address] [id number]: 08/26/2017 Secondary NOT GIVENUNK [place] Insurance:SELF [facility] Number: Effective Repository Date:2017-08-26 08/25/2017 MIGUELITO R Primary Insurance:[facility] MIGUELITO R [place] [id number] E COMMUNITY PLANPolicy MILBURNDOB: [facility] [place] Number: [id number], [place] [id number] Repository 80544Kaf: ([phone]) Date:6138-57-84ED [phone] () [address] [place] [address] [id number]: 08/25/2017 Secondary NOT GIVENUNK [place] Insurance:SELF [facility] Number: Effective Repository Date:2017-08-25 08/20/2017 MIGUELITO R Primary Insurance:[facility] MIGUELITO R [place] [id number] E COMMUNITY PLANPolicy MILBURNDOB: [facility] LARWI Number: [id number], [place] [id number] Repository 736[address]Dsf: ([phone]) Date:7780-14-49TX [phone] () [address] [place] [address] [id number]: 08/20/2017 Secondary NOT GIVENUNK [place] Insurance:SELF [facility] Number: Effective Repository Date:2017-08-20 08/02/2017 MIGUELITO R Primary Insurance:[facility] MIGUELITO R [place] [id number] E COMMUNITY PLANPolicy MILBURNDOB: [facility] Number: [id number], [place] [id number] Repository 62107Tey: ([phone]) Date:7944-97-46IC [phone] () [address] [place] [address] [id number]: 08/02/2017 Secondary NOT GIVENUNK [place] Insurance:SELF [facility] Number: Effective Repository Date:2017-08-02 07/26/2017 MIGUELITO R Primary Insurance:[facility] MIGUELITO R [place] [id number] E COMMUNITY PLANPolicy MILBURNDOB: [facility] Number: [id number], [place] [id number] Repository [address]59[address]Fla: ([phone]) Date:2674-23-67KO [phone] () [address] [place] [address] [id number]: 07/26/2017 Secondary NOT GIVENUNK [place] Insurance:SELF PAY [facility]: Effective Repository Date:2017-07-26
== END 2018-04-01 15:24 | disposition home or self-care (01) ==
LOC: ED 12:47
PROVIDERS: Emergency Provider Emergency Medicine; Family Provider Family Medicine; PCP Family Medicine
DX: R11.2 Nausea with vomiting, unspecified (principal); R19.7 Diarrhea, unspecified; N39.0 Urinary tract infection, site not specified; E11.9 Type 2 diabetes mellitus without complications; Z79.84 Long term (current) use of oral hypoglycemic drugs; Z79.4 Long term (current) use of insulin
CPT/HCPCS: 80053; 81001; 83690; 84703; 85025; 96361; 96374; 96375; 99284; J7030; A4216; J2405

== ENCOUNTER 2018-04-26 02:38 | Emergency (ER) | payer MEDICAID, SELFPAY ==
[2018-04-26 02:40] VITALS: BP 164/98; PULSE 112; RESP 17; TEMP 37; O2SAT 97; BMI 36.7
--- NOTE | 2018-04-26 03:23 | ED.VISSUMM ---
- ER Visit Summary Date of Service: 04/26/18 Chief Complaint: Sore throat History of Present Illness: The patient is a [address] Briceno. She reports she has a sore throat began approximate 1 week ago. She describes as a burning pain. Is 9 out of 10 at worst and 8 at 10 currently. Is worsened by swallowing and relieved by DayQuil. She has had chills, but no fever. She had nasal congestion. States that she has left ear pain that is 4-10 severity. She complains of a little bit of cough. No shortness of breath. Physical Examination: Vitals: Stable. Afebrile. General: Well-nourished and well-developed. Head: Normocephalic atraumatic. HEENT: Serous effusions behind her TMs bilaterally. No otitis media. She has nasal congestion. No rhinorrhea. Posterior oropharyngeal erythema. No tonsillar exudate or enlargement. No peritonsillar abscess. No cervical lymphadenopathy. Neck: Supple, no lymphadenopathy. No JVD. Nontender. Cardiovascular: Regular rate and rhythm. No murmurs. Respiratory: No respiratory distress. Clear to auscultation bilaterally. Abdominal: Soft, nontender, nondistended, normal bowel sounds. No guarding, rebound, or peritoneal signs. Back: Nontender. Extremities: Nontender, no edema. Skin: Normal color, no rash. Neurologic: Alert and oriented ?3. Cranial nerves II through XII are intact. Normal strength and sensation. Psych: Normal affect. Emergency Department Course and Treatment: I had a prolonged discussion with patient this is likely viral in etiology. She states that similar to when she had strep previously and she has been exposed to strep. I discussed they are ordering a rapid strep. She would like to be treated with antibiotics even if this is negative. We decided to defer this test. She was treated with Zithromax and naproxen. Treatment Plan: Patient will be discharged on Zithromax naproxen. Instructed to follow-up with Dr. Briceno in 1 week if not improving. Return to the emergency department for any worsening symptoms. Disposition: To home in improved and stable condition. Impression: 1. Pharyngitis. This note was generated with [employer] dictation software. It may contain incorrect words, spelling, and punctuation that were not noted in review of the chart prior to signing ED Disposition - Plan for ED Patient: Disposition: Home or Assisted Living Chief Complaint: Sore Throat Instructions: ED Strep Pharyngitis Poss Prescriptions: Azithromycin [Zithromax Z-Jason] 250 mg PO UD #1 box Naproxen [Naprosyn] 500 mg PO BID #14 tablet Referrals: Sneha Briceno DO [Primary Care Provider] - 1 Week if not improving
[2018-04-26] MEDS: Azithromycin 250 MG Tablet 500 MG PO (03:37)
[2018-04-26 03:38] VITALS: BP 131/72; PULSE 117; RESP 20; O2SAT 97
[2018-04-26] MEDS: Naproxen 250 MG Tablet 500 MG PO (03:38)
== END 2018-04-26 03:39 | disposition home or self-care (01) ==
LOC: ED 03:32
PROVIDERS: Emergency Provider Emergency Medicine; Family Provider Family Medicine; PCP Family Medicine
DX: J02.9 Acute pharyngitis, unspecified (principal); E11.9 Type 2 diabetes mellitus without complications; F32.9 Major depressive disorder, single episode, unspecified; Z79.4 Long term (current) use of insulin; Z79.899 Other long term (current) drug therapy; Z72.0 Tobacco use
CPT/HCPCS: 99283

== ENCOUNTER 2018-06-13 02:35 | Observation (INO) | payer MEDICAID, SELFPAY ==
[2018-06-13 02:36] VITALS: BP 142/89; PULSE 131; RESP 18; TEMP 37.7; O2SAT 96; BMI 38.9
--- NOTE | 2018-06-13 02:57 | ED.DCSUM_ITS ---
- ER Visit Summary Date of Service: 06/13/18 Chief Complaint: Headache, nausea, vomiting History of Present Illness: The patient is a 37 F who was diagnosed with influenza today presents with persistent headache, nausea, and vomiting. The patient had symptoms for the past 3 days. She went to urgent care today and had a positive flu. She was started on Tamiflu. She states that she still had headache, fever, chills, nausea, vomiting. She denies any neck pain. She denies abdominal pain. She said no dysuria. She is an insulin-dependent diabetic, but states that her sugars have not been higher than 200. She states that despite the Tamiflu treatment she does not feel like she is improving. She is had no change in vision, change in gait, or other symptoms. Physical Examination: Vital signs reviewed General: Well-nourished, well-developed Head: Normocephalic, atraumatic Eyes: Pupils equal and reactive, extraocular muscles intact Neck, supple, no lymphadenopathy Heart: Regular rate and rhythm Respiratory: No distress, diminished air movement bilaterally Abdomen: Soft, nontender, nondistended, no peritoneal signs Back: Nontender Extremities: Nontender, no edema, no cords Skin: Normal color no rash Neuro: Alert and oriented, no focal or lateralizing deficits Test Results: [] Emergency Department Course and Treatment: [The patient presents with cough, fever, chills, myalgias, arthralgias. She did have a positive flu today. My concern was that she may be developing pneumonia. The patient was given fluids, Toradol, and Phenergan. She did have improvement of her nausea and resolution of her headache. Her chest x-ray, however, does demonstrate bilateral infiltrates. Screening labs were obtained. These are unremarkable. As the patient does have influenza with bilateral infiltrates, I do feel that the most conservative thing would be to admit her for IV antibiotics and symptom control. She is not hypotensive. She has a normal lactate. I do feel that she is safe for a [facility] admission. Patient was discussed with the hospitalist. Treatment Plan: [] Disposition: Admission Impression: 1. Influenza 2. Bilateral pneumonia This note was generated with Certpoint Systemsation software. It may contain incorrect words, spelling, and punctuation that were not noted in review of the chart prior to signing ED Disposition - Plan for ED Patient: Referrals: Sneha Briceno DO [Primary Care Provider] -
[2018-06-13] MEDS: proMETHazine 25 MG/ML Syringe 12.5 MG IV (03:03)
[2018-06-13] MEDS: 0.9% Normal Saline 1,000 ML 1000 ML IV (03:03)
[2018-06-13] MEDS: Ketorolac 30 MG/ML Syringe IV (03:05)
--- NOTE | 2018-06-13 03:40 | RAD_ITS ---
STUDY: X-RAY CHEST REASON FOR EXAM: Female, 37 years old. Headache, fever, chills, nausea, vomiting x3 days. TECHNIQUE: PA and lateral views of the chest. COMPARISON: 10/09/2017 FINDINGS: Mild left greater than right basilar bronchial prominence exaggerated by low lung volume. This is more pronounced on the previous examination. There is no demonstrated pleural abnormality. Normal size heart. Normal mediastinum and leesa. Normal visualized pulmonary arteries. Normal visualized aortic arch and descending thoracic aorta. Normal visualized thoracic spine. Normal visualized ribs, clavicles, and shoulders. There is no demonstrated abnormality of the visualized soft tissue structures of the upper abdomen. RAD/Chest PA and Lateral IMPRESSION: Interstitial inflammation possible left greater than right base exaggerated by low lung volume and compression of parenchyma. Electronically Signed: Ruthy Dodd MD at 4:19 EST , Service support ,
[2018-06-13 04:13] VITALS: BP 127/79; PULSE 113; RESP 18; O2SAT 95
[2018-06-13 04:37] LABS: Absolute Lymphocyte Count 0.85 X10^3/ul (0.83-4.51); Absolute Neutrophil Count 3.2 X10^3/uL (2.0-7.7); Basophil# 0.01 X10^3/uL; Basophil% 0.2 % (0-1); Eosinophil# 0.01 X10^3/uL; Eosinophils% 0.2 % (0-5); Hematocrit 40.6 % (37-47); Hemoglobin 12.9 g/dl (12.0-15.0); Lymphocyte # 0.85 X10^3/ul (4.0); Lymphocyte % 18.4 % (19-41); Mean Corp Hgb Conc 31.8 g/gl (32-36); Mean Corpuscular Hgb 26.5 pg (27.0-32.0); Mean Corpuscular Volume 83.5 fL (81-99); Mean Platelet Vol. 10.1 fl (6.2-12.0); Monocyte# 0.56 X10^3/uL; Monocyte% 12.1 % (0-10); Neutrophil # 3.15 X10^3/uL (2.7-7.7); Neutrophil % 68.4 % (47-70); Platelet Count 153 K/mm3 (150-450); RBC Distribution Width CV 14.2 % (11.6-14.6); RBC Distribution Width SD 43.3 fl (35.1-43.9); Red Blood Count 4.86 M/mm3 (4.2-5.4); White Blood Count 4.6 K/mm3 (4.4-11.0)
[2018-06-13] MEDS: Ceftriaxone 1 GM/50 ML BAG IV (04:45)
[2018-06-13 04:49] LABS: Anion Gap 9 (5-15); BUN 9 mg/dL (7-18); BUN/Creat Ratio 15.7 RATIO (10-20); Calcium,Total 8.1 mg/dL (8.5-10.1); Chloride 105 mmol/L (98-107); Creatinine, Serum 0.58 mg/dL (0.55-1.02); EST Glomerular Filtration Rate 127 mL/min (>60); Est Glom Filt Rate - Afr Amer 153 mL/min (>60); Estimated Creatinine Clearance 136.57 ml/min; Glucose 167 mg/dL (74-106); Potassium 3.7 mmol/L (3.5-5.1); Sodium Level 140 mmol/L (136-145)
[2018-06-13 04:52] LABS: Lactic Acid 1.4 mmol/L (0.4-2.0); POSITIVE COUNT NO; POSITIVE DIFFERENTIAL NO; POSITIVE MORPHOLOGY NO
--- NOTE | 2018-06-13 05:05 | PCM.HP.STD ---
Problem List (1) Influenza, pneumonia Status: Acute (2) Segmental and somatic dysfunction of pelvic region Status: Acute (3) Depression Status: Chronic (4) Influenza Status: Acute History of Present Illness Date of Admission: 06/13/18 Chief Complaint: headache The patient is a 37 year old F with a significant history of type 1 diabetes; preeclampsia; and depression who presented with 3-day history of persistent headache. Her headache is bilateral supraorbital; and to her right temporal area. Also associated with symptoms is nausea, sore throat, dry cough, anorexia, chills, diaphoresis and fever with a possible temperature of 100.6 at home. Patient was admitted after midnight. The day before midnight she went to [place], [place] and was diagnosed with influenza for which reason she received Tamiflu. Before this presentation she had taken 2 doses of Tamiflu capsules. Because the headache persisted patient came to the emergency department. At the emergency department patient had a maximal temperature of 99.9. She had a tachycardia with heart rate of between 95-131. Chest x-ray showed bilateral infiltrates with right greater than left. At Emergency department patient received azithromycin, ceftriaxone, Phenergan and Toradol IV. Past Medical History Past Medical History (Chronic Problems): Chronic Problems (Last Reviewed 06/13/18 @ 07:00 by Marcio Ontiveros MD) Depression (Chronic) Impaired glucose tolerance in (Chronic) Abdominal pain in (Chronic) Medical History: Medical History (Last Reviewed 06/13/18 @ 07:00 by Marcio Ontiveros MD) Diabetes E11.9 Pre-eclampsia, O14.95 Allergies amoxicillin [Amoxicillin] Allergy (Verified 06/13/18 02:39) Itching Home Medications: Ambulatory Orders Medication Instructions Recorded Insulin Glargine,Hum.rec.anlog 45 units SQ DAILY 01/29/18 [[facility]] Metformin HCl [Glucophage] 1,000 mg PO DAILY 01/29/18 Lisinopril [Zestril] 10 mg PO DAILY 02/18/18 Venlafaxine XR [Effexor Xr] 37.5 mg PO DAILY 04/01/18 Insulin Aspart [Novolog Flexpen 15 units SC TIDCM 06/13/18 ([facility])] Oseltamivir Phosphate [Tamiflu] 75 mg PO DAILY 06/13/18 Surgical History: no surgical history Psychiatric History: Depression Lives: With Family Smoking Status: Never smoker Alcohol: None - *Family History Maternal Family History: Family History (Last Reviewed 06/13/18 @ 07:00 by Marcio Ontiveros MD) Other Diabetes Heart disease Hypertension Review of Systems Constitutional: Reports: Anorexia, Chills, Fever, Malaise, Fatigue. Denies: Weight Change HEENT: Reports: Head Aches, Sore Throat. Denies: Sinus Congestion, Sinus Drainage Cardiovascular: Denies: Chest Pain, Palpitations Respiratory: Reports: Cough. Denies: Shortness of breath at rest, Sputum production Gastrointestinal: Reports: Nausea. Denies: Abdominal Pain, Vomiting Genitourinary: Denies: Dysuria Musculoskeletal: Denies: Joint Pain, Joint Tenderness Skin: Denies: Rash, Wounds Neurological: Denies: Numbness, Tingling, Focal weakness Psychiatric: Denies: Anxiety, Depression, Homicidal Ideations, Suicidal Ideations Hematologic/ Lymphatic: Denies: Easy Bruising, Easy Bleeding VTE Information - Inpt Only VTE Present on Admission: No VTE Mechan Device Prophylaxis: None VTE Pharm Prophylaxis ordered?: Yes Patient Problems: Active and Suspected Problems (Last Reviewed 06/13/18 @ 07:00 by Marcio Ontiveros MD) Influenza, pneumonia (Acute) Influenza (Acute) - Physical Exam General: Alert, Oriented x3, Cooperative HEENT: Atraumatic, PERRLA, EOMI, Normocephalic Neck: Supple, No JVD, Negative Carotid Bruits Lungs: Clear to auscultation, Normal air movement Cardiovascular: No murmurs, Tachycardic Abdomen: Bowel Sounds Present, Soft, Non Tender Extremities: No edema, Capillary Refill Less than 3 Seconds Skin: No rashes, No breakdown Musculoskeletal: No Tenderness to Palpation of Joints or Extremities Neurological: Neuro grossly intact Psych/Mental Status: Normal Affect, Appropriate Vital Signs Temp Pulse Resp BP Pulse Ox 99.9 F H 113 H 18 127/79 H 95 06/13/18 02:36 06/13/18 04:13 06/13/18 04:13 06/13/18 04:13 06/13/18 04:13 Oxygen Delivery Method Room Air Weight: 116.12 kg Body Mass Index (BMI) 38.9 Finger Stick Blood Glucose 107 Laboratory Tests Past 24 Hrs 06/13/18 06/13/1806/13/19 04:10 04:10 04:10 WBC 4.6 RBC 4.86 Hgb 12.9 Hct 40.6 MCV 83.5 MCH 26.5 L MCHC 31.8 L RDW 14.2 RDW Differential 43.3 Plt Count 153 MPV 10.1 Immature Gran % (Auto) 0.700 Neut % (Auto) 68.4 Lymph % (Auto) 18.4 L [place] % (Auto) 12.1 H Eos % (Auto) 0.2 Baso % (Auto) 0.2 Absolute Neuts (auto) 3.2 Absolute Lymphs (auto) 0.85 Total Counted Not Reportable Sodium 140 Potassium 3.7 Chloride 105 Carbon Dioxide 26.0 Anion Gap 9 BUN 9 Creatinine 0.58 Estim Creat Clear Calc 136.57 Est GFR (MDRD) Af Amer 153 Est GFR (MDRD) Non-Af 127 BUN/Creatinine Ratio 15.7 Glucose 167 H Lactic Acid 1.4 Calcium 8.1 L Assessment/Plan All Active Problems (Last Reviewed 06/13/18 @ 07:00 by Marcio Ontiveros MD) Influenza, pneumonia (Acute) Influenza (Acute) Segmental and somatic dysfunction of pelvic region (Acute) The patient is a 37 year old F with a significant history of type 1 diabetes; preeclampsia; and depression who presented with 3-day history of persistent headache; and diagnosed with influenza outpatient who was started on Tamiflu outpatient and found to have radiographic evidence of bilateral infiltrates concerning for influenza pneumonia. Probable influenza pneumonia Patient diagnosed with influenza outpatient and with radiographic evidence of bilateral infiltrates. So far patient has received Tamiflu x2 doses while outpatient. Patient received Ceftriaxone and azithromycin at the emergency department. Also she received Phenergan and Toradol at the ED Review of literature shows that in an open label design trial Naprosyn added to Tamiflu decreased mortality. We will continue Tamiflu; and add clarithromycin and naproxen to her regimen. Antiemetics, Zofran as needed ordered. Tylenol for fever more than 100.4 and for headaches. Influenza infection Management as above. Diabetes mellitus type 1 On presentation her blood glucose was not within goal Patient reports taking Toujeo 45 units nightly. She reports that she did not miss her last dose before she was admitted. Continue Levemir at the same dose while inpatient Metformin continued Patient reports taking short acting insulin 15 units 3 times daily, prandial, continue. Accu-Chek q. before meals at bedtime with no correction regimen at this time. Adjust insulin regimen as necessary. Patient reports taking lisinopril not for hypertension but for renal protective effect from diabetes. Lisinopril continued. Elevated blood pressure without diagnosis of hypertension. Her blood pressure is above goal of 120/80. She has history of preeclampsia. She is on home lisinopril which she reports are taken for renal protective effects. At this time because patient is sick and in hospital setting will not diagnose with hypertension. Continue lisinopril as above Trend blood pressures and adjust blood pressure medications. Depression Effexor continued DVT prophylaxis: Lovenox ordered. Code Visit OBSV E&M: 96988 Initial observation care L3
[2018-06-13 05:56] VITALS: BP 125/90; PULSE 95; RESP 18; TEMP 37.1; O2SAT 97
[2018-06-13 06:01] VITALS: BMI 38.5
[2018-06-13 06:07] VITALS: BMI 38.5
[2018-06-13 06:27] LABS: Bedside Glucose 200 mg/dL (70-110)
[2018-06-13] MEDS: Oseltamivir Phosphate 75 MG Capsule PO (06:45)
[2018-06-13 07:25] VITALS: O2SAT 97
[2018-06-13] MEDS: metFORMIN HCl 1,000 MG Tablet 1000 MG PO (08:59)
--- NOTE | 2018-06-13 08:59 | DCINST_ITS ---
- Discharge Diagnoses Current Active Problems: Current Active and Chronic Problems (Last Reviewed 06/13/18 @ 07:00 by Marcio Ontiveros MD) Influenza, pneumonia (Acute) Influenza (Acute) You will use the following diet at home:: Calorie/Carbohydrate Controlled (specify 1200, 1400, etc) - 1800 yung. Your food should be the consistency of: Regular Discharge Activity: Return to Normal Activity Weight Bearing Status: Full weight bearing Call your doctor if you observe: Fever of 101 or Higher, Shortness of breath, Dizziness, Fainting spells, Chest pain, Increased palpitations (irregular heartbeat), Uncontrolled pain Allergies/Adverse Reactions: Allergies amoxicillin [Amoxicillin] Allergy (Verified 06/13/18 02:39) Itching Medications to take at Discharge Insulin Glargine,Hum.rec.anlog [Toujeo Solostar] 45 units SQ QHS 01/29/18 Metformin HCl [Glucophage] 1,000 mg PO BIDCM 01/29/18 Lisinopril [Zestril] 10 mg PO DAILY 02/18/18 Venlafaxine XR [Effexor Xr] 75 mg PO DAILY 04/01/18 Azithromycin [Zithromax] 250 mg PO DAILY #4 tab 06/13/18 Insulin Aspart [Novolog Flexpen] 15 units SC TIDCM 06/13/18 Oseltamivir Phosphate [Tamiflu] 75 mg PO BID #8 cap 06/13/18 The following prescriptions were given: Azithromycin [Zithromax] 250 mg PO DAILY #4 tab Oseltamivir Phosphate [Tamiflu] 75 mg PO BID #8 cap Primary Care Physician: Sneha Briceno DO [Primary Care Provider] - Please follow up with your Primary Care Physician in: 1 week. Test Results: Test results from this visit will be discussed in further detail at your follow- up appointment, if applicable.
[2018-06-13] MEDS: Venlafaxine XR 75 MG Capsule PO (09:00)
[2018-06-13] MEDS: Naproxen 250 MG Tablet PO (09:00)
[2018-06-13] MEDS: Insulin Lispro 100 UNIT/ML INSULN.PEN 15 UNIT SQ (09:00)
[2018-06-13] MEDS: Lisinopril 10 MG Tablet PO (09:01)
[2018-06-13] MEDS: Enoxaparin 40 MG/0.4 ML Syringe SC (09:01)
[2018-06-13] MEDS: Acetaminophen 325 MG Tablet 650 MG PO (09:03)
[2018-06-13 10:00] VITALS: BP 120/75; PULSE 90; RESP 18; TEMP 36.9; O2SAT 97
[2018-06-13 10:26] VITALS: BP 120/75; PULSE 90; RESP 18; TEMP 36.9; O2SAT 97
--- NOTE | 2018-06-13 14:30 | DS.PCM_ITS ---
Discharge Date and Diagnosis Date of Admission: 06/13/18 Date of Discharge: 06/13/18 - Primary Discharge Diagnosis #1 influenza A. #2 acute bronchitis. - Secondary Discharge Diagnosis Chronic Problems (Last Reviewed 06/13/18 @ 07:00 by Marcio Ontiveros MD) Depression (Chronic) Impaired glucose tolerance in (Chronic) Abdominal pain in (Chronic) Hospital Course and Treatment Imaging Results: Clinical Impression(s) from Imaging Studies Chest X-Ray 06/13/18 03:40 IMPRESSION: Interstitial inflammation possible left greater than right base exaggerated by low lung volume and compression of parenchyma. Electronically Signed: Ruthy Dodd MD at 4:19 EST , Service support , Operations: None Procedures: None Summary of Care Provided: Patient seen and examined and appeared to be stable to be discharged home. Symptoms improved, still having dry cough, no sputum. She has been afebrile, no more tachycardia. Her vital signs are completely stable. The patient is a 37 year old F presented to the ED because of headache for 3 days associated with nausea, sore throat, dry cough and chills and diaphoresis. Day before admission, patient was diagnosed with influenza A and she was started on Tamiflu. Her chest x-ray showed no acute findings. Pneumonia ruled out. Her routine blood work was unremarkable, no leukocytosis. Her lactic acid was normal. Maximum temperature during this hospital stay was 99.9 Fahrenheit. Initially, she was tachycardic and with IV fluids, and heart rate came down to normal. She was continued on Tamiflu and started empirically on Zithromax. Today, patient felt better, no more fever, headache is improved. Patient discharged home in stable condition, discharged on Tamiflu twice daily to complete 5 days of treatment, discharged on empiric Zithromax to complete 5 days of treatment, recommended follow-up with PCP in 1 week. - Physical Exam General: Alert, Oriented x3, Cooperative, No apparent distress HEENT: Atraumatic, PERRLA, EOMI, Normocephalic Oral: Moist Mucosa, No Gingival or Mucosal Lesions/ Ulcerations Neck: Supple, No JVD, Negative Carotid Bruits, Trachea Midline, Thyroid Normal Size and Texture Lungs: Clear to auscultation, Normal air movement, No rhonchi, No wheeze, No rales Cardiovascular: Regular rate, Regular Rhythm, Normal S1, Normal S2, PMI Normal Abdomen: Bowel Sounds Present, Soft, Non Tender, Non-Distended, No Hepato- splenomegaly, Obese Extremities: No clubbing, No cyanosis, No edema Skin: No rashes, No breakdown Lymphatic: No Cervical, Supraclavicular, or Inguinal Adenopathy Neurological: Cranial nerves II-XII grossly intact, Neuro grossly intact Psych/Mental Status: Normal Affect, Appropriate, Alert and oriented to time, place, person, mood and affect Vital Signs Temp Pulse Resp BP Pulse Ox 98.5 F 90 18 120/75 97 06/13/18 10:26 06/13/18 10:26 06/13/18 10:26 06/13/18 10:06/13/18 10:26 Oxygen Delivery Method Room Air Weight: 253 lb 8.505 oz Body Mass Index (BMI) 38.5 Finger Stick Blood Glucose 107 Laboratory Tests Past 24 Hrs 06/13/18 06/13/18 06/13/18 04:10 04:10 04:10 WBC 4.6 RBC 4.86 Hgb 12.9 Hct 40.6 MCV 83.5 MCH 26.5 L MCHC 31.8 L RDW 14.2 RDW Differential 43.3 Plt Count 153 MPV 10.1 Immature Gran % (Auto) 0.700 Neut % (Auto) 68.4 Lymph % (Auto) 18.4 L [place] % (Auto) 12.1 H Eos % (Auto) 0.2 Baso % (Auto) 0.2 Absolute Neuts (auto) 3.2 Absolute Lymphs (auto) 0.85 Total Counted Not Reportable Sodium 140 Potassium 3.7 Chloride 105 Carbon Dioxide 26.0 Anion Gap 9 BUN 9 Creatinine 0.58 Estim Creat Clear Calc 136.57 Est GFR (MDRD) Af Amer 153 Est GFR (MDRD) Non-Af 127 BUN/Creatinine Ratio 15.7 Glucose 167 H Lactic Acid 1.4 Calcium 8.1 L POC Glucose 06/13/18 06:19 POC Glucose 200 H Discharge Activity: Return to Normal Activity Weight Bearing Status: Full weight bearing Call your doctor if you observe: Fever of 101 or Higher, Shortness of breath, Dizziness, Fainting spells, Chest pain, Increased palpitations (irregular heartbeat), Uncontrolled pain Home Medications: Medications to take at Discharge Insulin Glargine,Hum.rec.anlog [Toujeo Solostar] 45 units SQ QHS 01/29/18 Metformin HCl [Glucophage] 1,000 mg PO BIDCM 01/29/18 Lisinopril [Zestril] 10 mg PO DAILY 02/18/18 Venlafaxine XR [Effexor Xr] 75 mg PO DAILY 04/01/18 Azithromycin [Zithromax] 250 mg PO DAILY #4 tab 06/13/18 Insulin Aspart [Novolog Flexpen] 15 units SC TIDCM 06/13/18 Oseltamivir Phosphate [Tamiflu] 75 mg PO BID #8 cap 06/13/18 Following Prescrptions Were Given to Patient: Azithromycin [Zithromax] 250 mg PO DAILY #4 tab Oseltamivir Phosphate [Tamiflu] 75 mg PO BID #8 cap Primary Care Physician: Sneha Briceno DO [Primary Care Provider] - Please follow up with your Primary Care Physician in: 1 week. Disposition: Home Minutes spent on discharge:: 24 Patient Condition:: Stable Medical Necessity - Tobacco Use Smoking Status: Never smoker Meaningful Use Info Meaningful Use Diagnoses (Choose all that apply): None applicable Code Visit OBSV E&M: 86802 Observ/hosp same date L1
== END 2018-06-13 10:20 | disposition home or self-care (01) ==
LOC: ED 05:05 → MS2 06:06
PROVIDERS: Admitting Provider Hospitalist; Emergency Provider Emergency Medicine; Family Provider Family Medicine; PCP Family Medicine; Visit Provider Hospitalist
DX: J09.X2 Influenza due to identified novel influenza A virus with other respiratory manifestations (principal); Z79.4 Long term (current) use of insulin; Z79.899 Other long term (current) drug therapy; M99.05 Segmental and somatic dysfunction of pelvic region; F32.9 Major depressive disorder, single episode, unspecified; E10.9 Type 1 diabetes mellitus without complications; J20.9 Acute bronchitis, unspecified
CPT/HCPCS: 36415; 71046; 80048; 82962; 83605; 85025; 87040; 96365; 96367; 96372; 96375; 99218; 99283; J7030; A4216; G0378

== ENCOUNTER → 2018-08-20 11:07 | Outpatient (CLI) | payer MEDICAID, SELFPAY ==
[2018-08-20 12:28] LABS: Absolute Lymphocyte Count 1.49 X10^3/ul (0.83-4.51); Basophil# 0.01 X10^3/uL; Basophil% 0.2 % (0-1); Eosinophil# 0.01 X10^3/uL; Eosinophils% 0.2 % (0-5); Hematocrit 36.9 % (37-47); Hemoglobin 11.9 g/dl (12.0-15.0); Lymphocyte # 1.49 X10^3/ul (4.0); Lymphocyte % 28.5 % (19-41); Mean Corp Hgb Conc 32.2 g/gl (32-36); Mean Corpuscular Hgb 26.6 pg (27.0-32.0); Mean Corpuscular Volume 82.6 fL (81-99); Mean Platelet Vol. 10.4 fl (6.2-12.0); Monocyte# 0.71 X10^3/uL; Monocyte% 13.6 % (0-10); Neutrophil % 57.3 % (47-70); Platelet Count 176 K/mm3 (150-450); RBC Distribution Width CV 14.1 % (11.6-14.6); RBC Distribution Width SD 42.3 fl (35.1-43.9); Red Blood Count 4.47 M/mm3 (4.2-5.4); White Blood Count 5.2 K/mm3 (4.4-11.0)
[2018-08-20 12:31] LABS: POSITIVE COUNT NO; POSITIVE DIFFERENTIAL NO; POSITIVE MORPHOLOGY NO
[2018-08-20 12:40] LABS: Hemoglobin A1c 7.6 % (4.2-6.3)
[2018-08-20 12:44] LABS: Microalbumin,Random Urine 78.1 mg/L (NO RANGE EST.); Microalbumin:Creatinine Ratio 38.3 mg/g CRE (<30 mg/g CRE)
[2018-08-20 12:59] LABS: ALB/GLOB Ratio 0.8 RATIO (0.9-2.4); AST(SGOT) 19 U/L (15-37); Alanine Aminotransfer ALT/SGPT 24 U/L (13-56); Albumin, Serum 3.3 g/dL (3.2-5.0); Alkaline Phosphatase 52 U/L (45-117); Anion Gap 5 (5-15); BUN 12 mg/dL (7-18); BUN/Creat Ratio 18.8 RATIO (10-20); Calcium,Total 8.4 mg/dL (8.5-10.1); Chloride 109 mmol/L (98-107); Cholesterol 137 mg/dL (200); Creatinine, Serum 0.64 mg/dL (0.55-1.02); EST Glomerular Filtration Rate 112 mL/min (>60); Est Glom Filt Rate - Afr Amer 135 mL/min (>60); Globulin 3.9 g/dL (2.2-4.2); Glucose 132 mg/dL (74-106); High Density Lipoprotein 35 mg/dL; Potassium 3.5 mmol/L (3.5-5.1); Protein, Total 7.2 g/dL (6.4-8.2); Sodium Level 142 mmol/L (136-145); Triglycerides 57 mg/dL; Very Low Density Lipoprotein 11 mg/dL (5-40)
== END ==
PROVIDERS: Family Provider Family Medicine; PCP Family Medicine; Referring Provider Family Medicine; Visit Provider Family Medicine
DX: E11.65 Type 2 diabetes mellitus with hyperglycemia (principal); Z51.81 Encounter for therapeutic drug level monitoring; Z79.4 Long term (current) use of insulin
CPT/HCPCS: 36415; 80053; 80061; 82043; 82570; 83036; 85025

== ENCOUNTER 2018-08-22 06:31 | Emergency (ER) | payer MEDICAID, SELFPAY ==
[2018-08-22 06:32] VITALS: BP 133/81; PULSE 120; RESP 28; TEMP 37.4; O2SAT 96; BMI 38.0
[2018-08-22 07:06] VITALS: O2SAT 99
--- NOTE | 2018-08-22 07:06 | RAD_ITS ---
HISTORY: Chest Pain EXAM:XR Chest 1 View portable COMPARISON: 06/13/2018 FINDINGS: EKG leads in place. Limited inspiration. Normal heart size. No acute infiltrate seen. No vascular congestion or pleural effusion. No pneumothorax. The bony thorax appears intact. RAD/Chest 1 View (Portable) IMPRESSION: Limited inspiration. No acute cardiopulmonary disease identified. at 0748 Reported and signed by: Gaurang Chang MD Electronically Signed: Gaurang Chang, at 7:47 EDT Tel , Service support ,
--- NOTE | 2018-08-22 07:06 | EKG12_ITS ---
Test Reason : CP Blood Pressure : / mmHG Vent. Rate : 118 BPM Atrial Rate : 118 BPM P-R Int : 138 ms QRS Dur : 080 ms QT Int : 324 ms P-R-T Axes : 019 008 031 degrees QTc Int : 454 ms Sinus tachycardia Minimal voltage criteria for LVH, may be normal variant Borderline ECG Confirmed by ANDREW HARRIS, MICHELINE ([id number]), desk editor MIESHA WOLF ([id number]) on 08/25/2018 1:59:16 PM Referred By: Sneha Briceno Confirmed By:MICHELINE MORALES MD
[2018-08-22] MEDS: Aspirin 81 MG TAB.CHEW 324 MG PO (07:13)
[2018-08-22 07:15] LABS: Absolute Lymphocyte Count 1.32 X10^3/ul (0.83-4.51); Absolute Neutrophil Count 2.7 X10^3/uL (2.0-7.7); Basophil# 0.01 X10^3/uL; Basophil% 0.2 % (0-1); Eosinophil# 0.02 X10^3/uL; Eosinophils% 0.4 % (0-5); Hematocrit 37.1 % (37-47); Hemoglobin 11.9 g/dl (12.0-15.0); Lymphocyte # 1.32 X10^3/ul (4.0); Lymphocyte % 29.5 % (19-41); Mean Corp Hgb Conc 32.1 g/gl (32-36); Mean Corpuscular Hgb 26.9 pg (27.0-32.0); Mean Corpuscular Volume 83.9 fL (81-99); Mean Platelet Vol. 9.9 fl (6.2-12.0); Monocyte# 0.42 X10^3/uL; Monocyte% 9.4 % (0-10); Neutrophil # 2.68 X10^3/uL (2.7-7.7); Neutrophil % 60.1 % (47-70); Platelet Count 161 K/mm3 (150-450); RBC Distribution Width SD 43.3 fl (35.1-43.9); Red Blood Count 4.42 M/mm3 (4.2-5.4); White Blood Count 4.5 K/mm3 (4.4-11.0)
[2018-08-22 07:16] LABS: POSITIVE COUNT NO; POSITIVE DIFFERENTIAL NO; POSITIVE MORPHOLOGY NO
--- NOTE | 2018-08-22 07:16 | ED.DCSUM_ITS ---
- ER Visit Summary Date of Service: 08/22/18 Chief Complaint: Chest pain History of Present Illness: The patient is a 37 F who has had 7 hours of chest pain. She states it started in the middle of the night. It sharp in the middle of her chest. It does not radiate. Nothing makes it better or worse. She denies any shortness of breath. She has not felt like herself for the past week. She has felt rundown and tired. She admits to some blurry vision. She has no history of any cardiac disease. She does have a history of hypertension, diabetes and is a smoker. Physical Examination: Vital signs reviewed. HEENT exam unremarkable. Heart is tachycardic and regular rhythm without murmurs. Lungs are clear to auscultation. Abdomen is soft and nontender. Extremities reveal no edema. Peripheral pulses are equal. Skin exam normal. Neurologic exam normal. Test Results: EKG is sinus tachycardia with a rate of 118. No ST changes. Intervals are unremarkable. Laboratory studies are normal. D-dimer normal. Troponin normal. Chest x-ray reveals no acute findings. Emergency Department Course and Treatment: The patient was given aspirin as well as Toradol IV. I feel this pain is likely musculoskeletal. Her troponin and d- dimer are normal after 7 hours of pain. I do not feel that this is cardiac. I do not feel that this is a PE. Patient will continue NSAIDs at home and will call her physician for follow-up. Treatment Plan: [] Disposition: Discharge Impression: Chest pain This note was generated with [employer] dictation software. It may contain incorrect words, spelling, and punctuation that were not noted in review of the chart prior to signing ED Disposition - Plan for ED Patient: Referrals: Sneha Briceno DO [Primary Care Provider] -
[2018-08-22 07:27] LABS: Anion Gap 6 (5-15); BUN 10 mg/dL (7-18); BUN/Creat Ratio 14.5 RATIO (10-20); Calcium,Total 8.3 mg/dL (8.5-10.1); Chloride 105 mmol/L (98-107); Creatinine, Serum 0.69 mg/dL (0.55-1.02); EST Glomerular Filtration Rate 103 mL/min (>60); Est Glom Filt Rate - Afr Amer 124 mL/min (>60); Glucose 167 mg/dL (74-106); Potassium 3.5 mmol/L (3.5-5.1); Sodium Level 139 mmol/L (136-145)
[2018-08-22 07:37] LABS: D-Dimer Quantitative (DVT/PE) < 0.27 FEU/ug/m (0.27-0.49)
--- NOTE | 2018-08-22 07:49 | ED.DEP ---
ED Disposition - Plan for ED Patient: Instructions: ED Chest Pain NonCardiac Referrals: Sneha Briceno DO [Primary Care Provider] -
[2018-08-22] MEDS: Ketorolac 30 MG/ML Syringe IV (07:53)
[2018-08-22 07:54] VITALS: BP 121/70; PULSE 109; RESP 20; O2SAT 95
== END 2018-08-22 08:06 | disposition home or self-care (01) ==
PROVIDERS: Emergency Provider Emergency Medicine; Family Provider Family Medicine; PCP Family Medicine
DX: R07.9 Chest pain, unspecified (principal); I10 Essential (primary) hypertension; E11.9 Type 2 diabetes mellitus without complications; F17.200 Nicotine dependence, unspecified, uncomplicated; Z79.4 Long term (current) use of insulin; Z79.84 Long term (current) use of oral hypoglycemic drugs; Z79.899 Other long term (current) drug therapy
CPT/HCPCS: 71045; 80048; 84484; 85025; 85379; 93005; 96374; 99283; A4216

== ENCOUNTER 2018-08-25 00:23 | Emergency (ER) | payer MEDICAID, SELFPAY ==
[2018-08-25 00:24] VITALS: BP 126/62; PULSE 82; RESP 16; TEMP 37.4; O2SAT 96; BMI 36.5
[2018-08-25 00:53] LABS: Bacteria 0 SEEN /hpf (None Seen)
[2018-08-25 00:57] LABS: Color, Urine Yellow (Yellow); Glucose, Dipstick 250 mg/dl (Normal); Ketone-Dipstick 15 mg/dl (Negative); Leukocyte Esterase-Dipstick 500 /ul (Negative); Nitrite-Dipstick Negative (Negative); Occult Blood-Urine 150 /ul (Negative); Protein-Dipstick 30 mg/dl (Negative); Urine Bilirubin Dipstick Negative (Negative); Urine Clarity Cloudy (Clear); Urine Urobilinogen 4 mg/dl (Normal)
[2018-08-25 00:58] LABS: Internal QC Validated? YES +Cl - CLEAR BKGD
[2018-08-25 00:59] LABS: Pregnancy, Urine Negative Negative
--- NOTE | 2018-08-25 01:20 | ED.VISSUMM ---
- ER Visit Summary Date of Service: 08/25/18 Chief Complaint: Vaginal irritation History of Present Illness: The patient is a 37 F presenting with vaginal irritation for the past week. She states she was seen by MEDICAL ASSISTANT SUPERVISOR on Friday. She was tested for GC, chlamydia, trichomonas. She states these tests were negative. She was started on doxycycline. She complains of persistent vaginal pain and dysuria. Physical Examination: Vitals are stable. Patient is afebrile. Alert no acute distress. HEENT exam is unremarkable. Neck is supple. Lungs are clear and equal bilaterally. Heart is regular rate and rhythm. Abdomen is soft nontender nondistended. : Multiple vesicular lesions on labia Extremities are unremarkable. Skin is warm and dry. No focal neurologic deficit. Remainder of exam is unremarkable. Emergency Department Course and Treatment: BGT 106. HCG negative. Urinalysis shows 0 white blood cells, 0 red cells. HSV culture was sent. Patient was started on acyclovir. She is given [place] for pain. Advised to follow-up with MEDICAL ASSISTANT SUPERVISOR. Advised return to ED if worsening complaints. Disposition: Discharge home Impression: Rash, suspect genital herpes This note was generated with [employer] dictation software. It may contain incorrect words, spelling, and punctuation that were not noted in review of the chart prior to signing ED Disposition - Plan for ED Patient: Instructions: ED Herpes Simplex Virus Type 2 Prescriptions: Acyclovir 1 tab PO TID #30 tablet Referrals: Sneha Briceno DO [Primary Care Provider] -
--- NOTE | 2018-08-25 01:22 | ED.DEP ---
ED Disposition - Plan for ED Patient: Instructions: ED Herpes Simplex Virus Type 2 Prescriptions: Acyclovir 1 tab PO TID #30 tablet Referrals: Sneha Briceno DO [Primary Care Provider] -
[2018-08-25 01:23] LABS: Mucous, Urine 4+ /hpf (<or=2+)
[2018-08-25 01:25] LABS: Red Blood Cells-Urine 5-10 SEEN /hpf (0-5); White Blood Cells 10-25 SEEN /hpf (0-5)
[2018-08-25 01:26] LABS: Squamous Epithelial Cells - UA 0-5 SEEN /hpf (5-10)
[2018-08-25 01:51] LABS: Bedside Glucose 106 mg/dL (70-110)
[2018-08-25] MEDS: Acyclovir 200 MG Capsule 400 MG PO (01:55)
[2018-08-25] MEDS: HYDROcodone Bitartrate/Apap 5/325 Tablet PO ×2 (02:02→02:03)
[2018-08-25 02:05] VITALS: BP 124/60; PULSE 79; RESP 18; O2SAT 96
[2018-08-27 09:37] LABS: HSV 1 By PCR Negative (Negative)
[2018-08-28 13:17] LABS: HSV 2 By PCR Positive (Negative)
== END 2018-08-25 02:06 | disposition home or self-care (01) ==
LOC: ED 01:11
PROVIDERS: Emergency Provider Emergency Medicine; Family Provider Family Medicine; PCP Family Medicine
DX: N89.8 Other specified noninflammatory disorders of vagina (principal); I10 Essential (primary) hypertension; E11.9 Type 2 diabetes mellitus without complications; Z79.4 Long term (current) use of insulin; Z79.84 Long term (current) use of oral hypoglycemic drugs; Z72.0 Tobacco use
CPT/HCPCS: 81001; 81025; 82962; 87529; 99283

== ENCOUNTER 2018-09-20 04:54 | Emergency (ER) | payer MEDICAID, SELFPAY ==
[2018-09-20 04:55] VITALS: BP 153/104; PULSE 98; RESP 18; TEMP 36.8; O2SAT 95; BMI 39.7
--- NOTE | 2018-09-20 05:18 | CT_ITS ---
HISTORY: HEADACHE WITH FRONTAL PAIN X 8 HRS AND NAUSEAHX:HTN,DIABETES EXAMINATION: CT Head or Brain W/O Contrast TECHNIQUE: Multiple axial images were obtained of the brain without intravenous contrast. A radiation dose optimization technique was used for this scan. IV Contrast dosage and agent: None. COMPARISON: None FINDINGS: Normal ventricles and normal montano-white matter differentiation. No intracranial mass, hemorrhage, or acute parenchymal abnormality. Posterior fossa structures are unremarkable. No suspicious extra-axial fluid collection. Mucosal thickening of the posterolateral wall of the right maxillary sinus. CT/Brain/Head without Contrast IMPRESSION: 1. Normal CT brain without contrast. 2. Right maxillary sinusitis. Individualized dose optimization techniques were used for this CT. at 0605 Reported and signed by: Gaurang Chang MD Electronically Signed: Gaurang Chang, at 6:04 EDT Tel , Service support ,
[2018-09-20] MEDS: DiphenhydrAMINE 50 MG/ML Syringe 25 MG IV (05:24)
[2018-09-20] MEDS: proCHLORPERazine 10 MG/2 ML Vial IV (05:24)
[2018-09-20] MEDS: 0.9% Normal Saline 1,000 ML 999 ML IV (05:24)
--- NOTE | 2018-09-20 05:27 | ED.VISSUMM ---
- ER Visit Summary Date of Service: 09/20/18 Chief Complaint: Headache History of Present Illness: The patient is a 37 F who presents with a headache that began today while at work. Patient states her headache began suddenly approximately 8 hours prior to arrival. Patient states the headache is localized to the frontal area. Patient admits to some nausea but denies any vomiting. Patient states she had similar headaches when she had preeclampsia when she was . Patient denies any fevers or chills. Physical Examination: Vital signs are stable. Patient is afebrile. Patient is in no acute distress. Oral mucosa is pink and moist. Neck is supple. Trachea is midline. There is no JVD noted. Heart was regular rate and rhythm. Lungs are clear and equal bilateral. Abdomen is soft. Bowel sounds are normal. There is no tenderness. There is no guarding noted. Skin is warm dry. Cranial nerves II through XII are intact. There are no focal motor or sensory deficits noted. The remaining physical exam is within normal limits. Test Results: CT scan of the brain was obtained. There is no acute intracranial abnormality. There is some right maxillary sinusitis. Serum hCG was negative. Emergency Department Course and Treatment: Patient was given IV fluids, Benadryl, and Compazine. Patient still complained of a headache. Patient was given an injection of Toradol. Patient was instructed to rest in a dark quiet room. Patient was instructed to follow-up with her primary care physician in 5 to 7 days. Patient understood and was agreeable with the plan. All questions were answered. Disposition: Discharge home Impression: Headache This note was generated with [employer] dictation software. It may contain incorrect words, spelling, and punctuation that were not noted in review of the chart prior to signing ED Disposition - Plan for ED Patient: Disposition: Home or Assisted Living Diagnosis: Headache Instructions: ED Cephalgia Unspecified Referrals: Sneha Briceno DO [Primary Care Provider] - 3-5 Days
[2018-09-20 05:49] LABS: Internal QC Validated? YES +Cl - CLEAR BKGD; Pregnancy, Serum, hCG Quali. NEGATIVE Negative
[2018-09-20] MEDS: Ketorolac 30 MG/ML Syringe IV (06:21)
[2018-09-20 06:27] VITALS: BP 136/84; PULSE 72; RESP 16
== END 2018-09-20 06:29 | disposition home or self-care (01) ==
PROVIDERS: Emergency Provider Emergency Medicine; Family Provider Family Medicine; PCP Family Medicine
DX: R51 Headache (principal); I10 Essential (primary) hypertension; E11.9 Type 2 diabetes mellitus without complications; E66.9 Obesity, unspecified; Z68.39 Body mass index [BMI] 39.0-39.9, adult; Z79.4 Long term (current) use of insulin; Z79.84 Long term (current) use of oral hypoglycemic drugs; Z79.899 Other long term (current) drug therapy
CPT/HCPCS: 70450; 84703; 96361; 96374; 96375; 99283; J7030; A4216

== ENCOUNTER 2018-11-05 04:07 | Emergency (ER) | payer MEDICAID, SELFPAY ==
[2018-10-26 09:38] VITALS: BMI 39.7
[2018-11-05 04:08] VITALS: BP 157/106; PULSE 107; RESP 18; TEMP 36.9; O2SAT 99; BMI 40.2
[2018-11-05] MEDS: dexAMETHasone 4 MG Tablet PO (04:44)
[2018-11-05] MEDS: Naproxen 500 MG Tablet PO (04:44)
--- NOTE | 2018-11-05 04:48 | ED.VISSUMM ---
- ER Visit Summary Date of Service: 11/05/18 Chief Complaint: Sore throat History of Present Illness: The patient is a 37 F presenting with sore throat. She states this started 3 days ago. She complains of painful swallowing with no difficulty swallowing. She has had fever up to 100 at home. She denies rhinorrhea or cough. She has tried Tylenol at home. Denies other complaints. Physical Examination: Vitals are stable. Patient is afebrile. Alert no acute distress. HEENT exam pharyngeal erythema with no exudate. Uvula is midline. Neck is supple. No meningismus Lungs are clear and equal bilaterally. Heart is regular rate and rhythm. Extremities are unremarkable. Skin is warm and dry. No rash Remainder of exam is unremarkable. Emergency Department Course and Treatment: Patient was given Decadron, Naprosyn. Rapid strep is negative. On reevaluation, patient is feeling improved. She is given a prescription for Naprosyn. Advised to follow-up with her primary care physician. Advised return to ED for worsening complaints. Disposition: Discharge home Impression: Pharyngitis This note was generated with [employer] dictation software. It may contain incorrect words, spelling, and punctuation that were not noted in review of the chart prior to signing ED Disposition - Plan for ED Patient: Instructions: PHARYNGITIS, Viral Prescriptions: Naproxen [Naprosyn] 500 mg PO BID PRN #20 tab Prescription Printed Referrals: Sneha Briceno DO [Primary Care Provider] -
--- NOTE | 2018-11-05 05:34 | ED.DEP ---
ED Disposition - Plan for ED Patient: Instructions: PHARYNGITIS, Viral Prescriptions: Naproxen [Naprosyn] 500 mg PO BID PRN #20 tablet Referrals: Sneha Briceno DO [Primary Care Provider] -
[2018-11-05 05:43] VITALS: BP 148/92; PULSE 82; RESP 18; O2SAT 98
== END 2018-11-05 05:43 | disposition home or self-care (01) ==
LOC: ED 04:49
PROVIDERS: Emergency Provider Emergency Medicine; Family Provider Family Medicine; PCP Family Medicine
DX: J02.9 Acute pharyngitis, unspecified (principal); E11.9 Type 2 diabetes mellitus without complications; Z79.4 Long term (current) use of insulin; Z79.84 Long term (current) use of oral hypoglycemic drugs
CPT/HCPCS: 87880; 99283

== ENCOUNTER 2019-02-22 01:52 | Emergency (ER) | payer MEDICAID, SELFPAY ==
[2019-01-08 10:03] VITALS: BMI 40.2
[2019-02-22 01:54] VITALS: BP 136/99; PULSE 91; RESP 16; TEMP 36.4; O2SAT 98; BMI 40.4
--- NOTE | 2019-02-22 02:01 | RAD_ITS ---
HISTORY: HEEL PAIN X 2 MONTHS COMPARISON: None FINDINGS: # of images incl. paperwork: 3 XR Foot Min 3 Views : Dorsal and plantar small calcaneal spurs No fracture or subluxation. No osseous or soft tissue abnormality. The joint spaces are well-maintained. No radiopaque foreign body is seen. RAD/Foot min 3 Views IMPRESSION: Dorsal and plantar calcaneal spurs. at 0225 Reported and signed by: Seth Torrez MD Electronically Signed: Seth Torrez MD at 2:24 EDT Tel , Service support ,
--- NOTE | 2019-02-22 02:41 | ED.VIS.GEN ---
History of Present Illness Chief Complaint: Lower Extremity Injury Informant: Patient Onset: Month(s) - 3 Context: Gradual Onset Timing: Continuous Narrative: Patient is a 38-year-old female with history of diabetes mellitus presenting with right foot pain. She states it hurts at the heel. She also states she has a growth on the bottom of the same foot and wants that to be evaluated. Patient denies any associated numbness or tingling. She denies any injury to her foot. 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 She wears no slipped shoes but is not wearing any special insoles or supportive shoes. She is intimately taken Tylenol and Motrin with no significant relief. She states she cannot take it anymore so she came to the emergency room to be evaluated further. She denies any other complaints at this time. Past Medical History - Allergies and Home Meds Allergies/Adverse Reactions: Allergies amoxicillin [Amoxicillin] Allergy (Verified 02/22/19 02:06) Itching Primary Care Physician: Sneha Briceno DO [Primary Care Provider] - Past Medical History: - - DM Surgical History: no surgical history Smoking Status: Current some day smoker - Family History Maternal Family History: Family History (Last Reviewed 02/17/19 @ 11:28 by Melissa Pendleton) Other Diabetes Heart disease Hypertension Family History: Reports: No pertinent history Review of Systems All systems negative except as indicated Musculoskeletal: Reports: Extremity Pain - Right foot pain Skin: Reports: - - Growth at base of right foot Physical Exam Vital Signs/Narrative: Vital Signs Temp Pulse Resp BP Pulse Ox 02/22/19 01:54 97.6 F L 91 16 136/99 H 98 Inital Vital Signs reviewed: Yes General: Well nourished, Well developed, Obese, No Acute Distress Head: Normocephalic, Atraumatic Eyes: Perrl, EOMI ENT: Moist mucous membranes, No rhinorrhea Neck: Supple, Nontender Cardiovascular: Regular rate, Regular rhythm, No murmurs Respiratory: No distress, CTA bilaterally, Chest nontender Abdomen: Soft, Nontender, Nondistended, Normal bowel sounds Back: Nontender, Normal Inspection Extremities: No edema, Tenderness - Mild tenderness to palpation at the base of the right heel Skin: Normal color, No rash, - - Winkelman on the plantar aspect of the right ball of the foot Neurological: Alert, Oriented x3, Cranial nerves II-XII grossly intact, Normal Strength, Normal Sensation Psychological: Normal affect, Normal Mood Diagnostic/Tx/Re-eval Diagnostic Data Foot X-Ray 02/22/19 02:01 IMPRESSION: Dorsal and plantar calcaneal spurs. at 0225 Reported and signed by: Seth Torrez MD Electronically Signed: Seth Torrez MD at 2:24 EDT Tel , Service support , - Medical Decision Making Patient is evaluated for atraumatic right foot pain. She appears nontoxic in no acute distress. This been going on for 3 months. She does not have any associated edema. Physical exam is benign. The distribution of her pain is consistent with a bone spur or plantar fasciitis. In addition patient does have a corn at the base of her foot. Patient is not given steroids for her pain secondary to history of diabetes mellitus. She will be referred to podiatry. She started on Naprosyn. She is offered a work note but declines. Patient is in counseled to use more supportive shoes and insoles to help with her pain. Patient is counseled on signs and symptoms requiring return to the emergency room. Patient verbalizes agreement and understand this plan. Patient discharged home in stable and improved condition. ED Disposition - Plan for ED Patient: Disposition: Home or Assisted Living Diagnosis: Bone spur of right foot, Pain, foot, right, chronic, Winkelman of foot Instructions: Heel Spur, Plantar Fasciitis, Treating Corns and Calluses Prescriptions: Naproxen [Naprosyn] 375 mg PO BID PRN PRN #28 tab PRN Reason: Pain Or Fever Prescription Printed Referrals: Sneha Briceno DO [Primary Care Provider] - Pratik Eduardo DPM [STAFF PHYSICIAN] - Additional Instructions: Please use more supportive shoes and get insoles for your shoes if possible. Follow-up with podiatry. Return the emergency room if you develop worsening symptoms.
[2019-02-22] MEDS: Naproxen 375 MG Tablet PO (03:05)
== END 2019-02-22 03:07 | disposition home or self-care (01) ==
PROVIDERS: Emergency Provider Emergency Medicine; Family Provider Family Medicine; PCP Family Medicine
DX: M77.31 Calcaneal spur, right foot (principal); L84 Corns and callosities; G89.29 Other chronic pain; E11.9 Type 2 diabetes mellitus without complications; E66.9 Obesity, unspecified; F17.200 Nicotine dependence, unspecified, uncomplicated; Z68.41 Body mass index [BMI] 40.0-44.9, adult; Z79.4 Long term (current) use of insulin; Z79.84 Long term (current) use of oral hypoglycemic drugs; Z79.899 Other long term (current) drug therapy
CPT/HCPCS: 73630; 99283

== ENCOUNTER 2019-05-01 01:13 | Emergency (ER) | payer MEDICAID, SELFPAY ==
[2019-05-01 01:14] VITALS: BP 129/89; PULSE 84; RESP 18; TEMP 36.9; O2SAT 99; BMI 39.9
--- NOTE | 2019-05-01 02:23 | ED.DCSUM_ITS ---
History of Present Illness Chief Complaint: Lower Extremity Injury Informant: Patient Onset: Month(s) - multiple Context: Gradual Onset Timing: Continuous Quality of Pain: Aching Location: right knee, right foot Current Severity: Moderate Maximum Severity: Moderate Worsened by: walking. bending knee. Relieved by: remaining still/rest. Associated Symptoms: Negative for: Parasthesia, Weakness, Loss of Funtion Narrative: Patient presented to in the morning for pain in her right foot that was diagnosed by plain a physician relations representative as plantar fasciitis that is been present for a month or 2, and now progressing into her heel and Achilles area. This has been a gradual progression, she has had no acute injury or felt a pop. She also has pain in her medial proximal tibia around her right knee for over 6 months. She states she comes here because she cannot get in to see her physician relations representative until mid May which is several weeks away. She is a diabetic, type II. She denies any systemic symptoms or illnesses right now. - Past Medical History (1) Depression Status: Chronic Past Medical History - Allergies and Home Meds Allergies/Adverse Reactions: Allergies amoxicillin [Amoxicillin] Allergy (Verified 02/22/19 02:06) Itching Primary Care Physician: Sneha Briceno DO [Primary Care Provider] - Surgical History: no surgical history Smoking Status: Current every day smoker Drugs: None - Family History Maternal Family History: Family History (Last Reviewed 02/24/19 @ 09:02 by Melissa Pendleton) Other Diabetes Heart disease Hypertension Family History: Reports: No pertinent history Review of Systems General: Denies: Chills, Fever, Sweats Musculoskeletal: Reports: Extremity Pain Skin: Denies: Rash, Wounds Neurological: Denies: Headache, Weakness, Numbness Physical Exam Vital Signs/Narrative: Vital Signs Temp Pulse Resp BP Pulse Ox 05/01/19 01:14 98.4 F 84 18 129/89 H 99 Inital Vital Signs reviewed: Yes - Extremity Exam Right Knee: - - Full range of motion of the knee. No effusion. All ligaments stable. She is tender at the area of the Pes anserines. There is no overlying erythema, lesion/rash, or swelling. No other abnormal areas of the knee.. Negative for: Limited ROM Right Foot: - - Normal inspection of the right foot and ankle. Tender just anterior to the heel at the plantar aspect of the foot. No calcaneus tenderness, no Achilles tenderness or deformity, negative Guerrero with full range of motion. No other foot bony tenderness. General: Well nourished, Well developed, - - nad Skin: Normal color, No rash Neurological: Alert, Oriented x3, Cranial nerves II-XII grossly intact, Normal Strength, Normal Sensation Psychological: Normal affect, Normal Mood Diagnostic/Tx/Re-eval - Medical Decision Making I offered the patient a course of prednisone, although she is a diabetic she has insulin and states she is familiar with a sliding scale and has managed high blood sugars with prednisone in the past although they do not always make her blood sugars go high. Advised to follow-up. ED Disposition - Plan for ED Patient: Disposition: Home or Assisted Living Diagnosis: Plantar fasciitis of right foot, Pes anserine bursitis Instructions: Bursitis, Plantar Fasciitis Prescriptions: Prednisone 10 mg PO UD #33 tab Prescription Printed Referrals: Sneha Briceno DO [Primary Care Provider] - Doctor,Your [STAFF PHYSICIAN] - Keep Roseline appointment (your physician relations representative) Wilmar Lopez MD [STAFF PHYSICIAN] - As soon as possible (for your knee; a cortisone injection may help)
[2019-05-01] MEDS: predniSONE 20 MG Tablet 40 MG PO (02:29)
[2019-05-01 02:35] VITALS: RESP 18
== END 2019-05-01 02:35 | disposition home or self-care (01) ==
PROVIDERS: Emergency Provider Emergency Medicine; Family Provider Family Medicine; PCP Family Medicine
DX: M72.2 Plantar fascial fibromatosis (principal); M71.561 Other bursitis, not elsewhere classified, right knee; E11.9 Type 2 diabetes mellitus without complications; F32.9 Major depressive disorder, single episode, unspecified; F17.200 Nicotine dependence, unspecified, uncomplicated; Z79.4 Long term (current) use of insulin
CPT/HCPCS: 99283

== ENCOUNTER → 2019-06-14 08:58 | Outpatient (CLI) | payer MEDICAID, SELFPAY ==
[2019-06-14 08:53] VITALS: BMI 39.9
--- NOTE | 2019-06-14 08:58 | RAD_ITS ---
STUDY: X-RAY - RIGHT FOOT CLINICAL: Female, 38 years old. RIGHT HEEL PAIN, NKI TECHNIQUE: 3 view(s) of the foot. COMPARISON: None. FINDINGS: There is an enthesophyte involving the posterior superior calcaneus at the site of insertion of the Achilles tendon. Plantar spur. Normal visualized subtalar, talonavicular, calcaneocuboid, tarsal and tarsometatarsal articulations. Normal metatarsi. Normal metatarsophalangeal joint of the great toe. Normal tibial and fibular sesamoid bones. Normal interphalangeal joint of the great toe. Normal phalanges of the great toe. Normal second through fifth metatarsophalangeal joints. Normal interphalangeal joints and phalanges of the lesser toes. The soft tissue structures are unremarkable. RAD/Foot min 3 Views IMPRESSION: Calcaneal spurs. Electronically Signed: Ismael Eubanks, at 10:01 EST , Service support ,
== END ==
PROVIDERS: PCP Family Medicine; Referring Provider Physician Assistant Surgical; Visit Provider Physician Assistant Surgical
DX: M77.31 Calcaneal spur, right foot (principal)
CPT/HCPCS: 73630

== ENCOUNTER 2019-07-09 23:43 | Emergency (ER) | payer MEDICAID, SELFPAY ==
[2019-06-14 08:53] VITALS: BMI 39.9
[2019-07-09 23:44] VITALS: BP 158/86; PULSE 90; RESP 14; TEMP 36.7; O2SAT 100; BMI 39.5
--- NOTE | 2019-07-10 00:06 | ED.VIS.URI ---
History of Present Illness Chief Complaint: Sore Throat Informant: Patient Onset: Days - 2-3 Context: Gradual Onset Timing: Continuous Quality: sore Location: throat Current Severity: Moderate Maximum Severity: Moderate Worsened by: Swallowing Relieved by: - - nothing. hasn't tried any meds. Associated Symptoms: Negative for: Nasal Congestion, Headache, Sinus Pressure, Nausea, Vomiting, Diarrhea, Shortness of Breath, Chest Pain, Nonproductive cough, Productive Cough Narrative: Type II diabetic with sore throat for a few days, hurts to swallow so she is taking in less fluids and food, but she is urinating okay. Blood sugars have been stable for her which is in the 200s. She denies any cough, headache, gland swelling, earache, rhinorrhea. No fevers that she knows of. No known sick contacts. She states that she is malaise but in the same sentence she states that she just got done working 43 straight hours. - Past Medical History (1) Type 2 diabetes mellitus Status: Chronic (2) Lumbar radiculopathy Status: Chronic (3) Segmental and somatic dysfunction of pelvic region Status: Chronic (4) Depression Status: Chronic Past Medical History - Allergies and Home Meds Allergies/Adverse Reactions: Allergies amoxicillin [Amoxicillin] Allergy (Verified 07/09/19 23:44) Itching Primary Care Physician: Sneha Briceno DO [Primary Care Provider] - 1 Week if not improving Surgical History: no surgical history Lives: With Family Smoking Status: Current some day smoker - Family History Maternal Family History: Family History (Last Reviewed 02/24/19 @ 09:02 by Melissa Pendleton) Other Diabetes Heart disease Hypertension Family History: Reports: No pertinent history Review of Systems General: Reports: Malaise. Denies: Chills, Fever, Sweats Eyes: Denies: Visual changes - bilaterally, Diplopia ENT: Reports: Sore throat. Denies: Bilateral ear pain, Rhinorrhea Cardiovascular: Denies: Chest pain, Palpitations Respiratory: Denies: Dyspnea, Cough, Dyspnea on exertion Gastrointestinal: Denies: Abdominal pain, Nausea, Vomiting, Diarrhea, Melena, Hematochezia Genitourinary: Denies: Dysuria, Hematuria, Frequency Musculoskeletal: Denies: Neck pain, Swelling Skin: Denies: Rash, Wounds Neurological: Denies: Headache, Weakness, Numbness Physical Exam Vital Signs/Narrative: Vital Signs Temp Pulse Resp BP Pulse Ox 07/09/19 23:44 98.1 F 90 14 158/86 H 100 Inital Vital Signs reviewed: Yes General: Well nourished, Well developed, Obese, Unkempt Head: Normocephalic, Atraumatic Eyes: Perrl, EOMI Nose: Normal Inspection, No Rhinorrhea. Negative for: Purulent Drainage Mouth/Throat: Airway Patent, Posterior Oropharyngeal Erythema Tonsils: Negative for: Right Tonsilar Erythema, Left Tonsilar Erythema, Right Tonsilar Exudates, Left Tonsilar Exudates Neck: Supple, Nontender, No Lymphadenopathy, No Meningismus. Negative for: Anterior Lymphadenopathy, Posterior Lymphadenopathy Cardiovascular: Regular rate, Regular rhythm, No murmurs Respiratory: No distress Abdomen: Soft, Nontender, Nondistended, Normal bowel sounds Skin: Normal color, No rash Neurological: Alert, Oriented x3, Cranial nerves II-XII grossly intact, Normal Strength, Normal Sensation, Normal Gait Psychological: Normal affect, Normal Mood Diagnostic/Tx/Re-eval - Medical Decision Making Rapid strep is negative. Culture is sent but until it returns, this is viral clinically until proven otherwise. She was given a dose of ibuprofen. I will give her Decadron if she was not a diabetic, however that will likely make her sugars even worse. She agrees with not getting steroids. Supportive care advised and follow-up. ED Disposition - Plan for ED Patient: Disposition: Home or Assisted Living Diagnosis: Acute viral pharyngitis Instructions: PHARYNGITIS, Viral Referrals: Sneha Briceno DO [Primary Care Provider] - 1 Week if not improving Additional Instructions: There is approximately 15-20% chance that the negative strep test is incorrect. We did send a culture, if it returns positive we will call you with a prescription.
[2019-07-10] MEDS: Ibuprofen 600 MG Tablet PO (00:20)
[2019-07-10 00:41] VITALS: RESP 16
== END 2019-07-10 00:42 | disposition home or self-care (01) ==
PROVIDERS: Emergency Provider Emergency Medicine; PCP Family Medicine
DX: J02.9 Acute pharyngitis, unspecified (principal); E11.9 Type 2 diabetes mellitus without complications; F32.9 Major depressive disorder, single episode, unspecified; E66.9 Obesity, unspecified; F17.200 Nicotine dependence, unspecified, uncomplicated; Z79.4 Long term (current) use of insulin; Z68.39 Body mass index [BMI] 39.0-39.9, adult
CPT/HCPCS: 87880; 99283

== ENCOUNTER 2019-09-04 22:46 | Emergency (ER) | payer MEDICAID, SELFPAY ==
[2019-09-04 22:47] VITALS: BP 163/96; PULSE 119; RESP 18; TEMP 36.2; O2SAT 96; BMI 41.0
--- NOTE | 2019-09-04 23:13 | ED.DCSUM_ITS ---
- ER Visit Summary Date of Service: 09/04/19 Chief Complaint: Right knee pain History of Present Illness: The patient is a [address] Briceno. She reports that she has right knee pain that began 2 months ago. Is a constant stabbing pain. Is 9 at 10 severity at worst and currently. Is worsened by wa lking. Is relieved by ibuprofen and ice. She denies any numbness or weakness. She denies any other pain. No recent trauma. No fall, MVA, or change in activity. Review of systems: General: No fever, chills, cold sweats. Cardiovascular: No chest pain, palpitations. Respiratory: No cough, shortness of breath, dyspnea on exertion. Gastrointestinal: No abdominal pain, nausea, vomiting, diarrhea, melena, or hematochezia. Genitourinary: No dysuria, frequency, hematuria. Skin: No rash. Neuro: No headache, numbness, weakness. Physical Examination: Vitals: Stable. Afebrile. General: Well-nourished and well-developed. Head: Normocephalic atraumatic. Neck: Supple, no lymphadenopathy. No JVD. Nontender. Cardiovascular: Regular rate and rhythm. No murmurs. Respiratory: No respiratory distress. Clear to auscultation bilaterally. Abdominal: Soft, nontender, nondistended, normal bowel sounds. No guarding, rebound, or peritoneal signs. Back: Nontender. Extremities: Moderate tenderness palpation over the proximal tibia medially. There is no joint effusion. There is no erythema or warmth to suggest a septic joint. She has good range of motion with minimal difficulty. She has pain, but no ligamentous instability with anterior/posterior drawer or medial/lateral stress. She is neuro vas intact distal to this. She is a 2+ dorsalis pedis pulse, no edema. Skin: Normal color, no rash. Neurologic: Alert and oriented ?3. Cranial nerves II through XII are intact. Normal strength and sensation. Psych: Normal affect. Emergency Department Course and Treatment: I offered to x-ray her knee, but did discuss with her that it will only show bones and with no fall or MVA or as any other source of trauma that would potentially break a bone that I feel that this is a E-. She does not want this performed. She was given a dose of Tylenol here. Treatment Plan: Patient has had 2 months of knee pain. I do not think putting on her opiate-based medication is warranted. She is instructed use Tylenol and/or ibuprofen for pain. Continue to ice. She refused crutches. Follow-up with her primary care physician in 1 week if not improving. Disposition: To home in improved and stable condition. Impression: 1. Chronic right knee pain. This note was generated with [employer] dictation software. It may contain incorrect words, spelling, and punctuation that were not noted in review of the chart prior to signing ED Disposition - Plan for ED Patient: Instructions: ED Knee Pain [facility] Referrals: Sneha Briceno DO [Primary Care Provider] - 1 Week if not improving Wilmar Lopez MD [STAFF PHYSICIAN] -
[2019-09-05] MEDS: Acetaminophen 325 MG Tablet 1000 MG PO (00:54)
== END 2019-09-05 01:07 | disposition home or self-care (01) ==
LOC: ED 09-05 00:39
PROVIDERS: Emergency Provider Emergency Medicine; PCP Family Medicine
DX: M25.561 Pain in right knee (principal); G89.29 Other chronic pain; E11.9 Type 2 diabetes mellitus without complications; F32.9 Major depressive disorder, single episode, unspecified; Z79.4 Long term (current) use of insulin; Z72.0 Tobacco use
CPT/HCPCS: 99282

== ENCOUNTER → 2019-09-08 10:52 | Outpatient (CLI) | payer MEDICAID, SELFPAY ==
[2019-09-08 10:51] VITALS: BMI 41.0
--- NOTE | 2019-09-08 10:53 | RAD_ITS ---
STUDY: X-RAY - RIGHT KNEE REASON FOR EXAM: Female, 38 years old. PAIN TECHNIQUE: 4 view(s) of the knee. COMPARISON: None. FINDINGS: Normal visualized distal femur. Normal visualized proximal tibia and fibula. Normal proximal tibiofibular articulation. Normal medial femorotibial compartment. Normal lateral femorotibial compartment. Normal patellofemoral articulation. The soft tissue structures are unremarkable. RAD/Knee 4 or More Views IMPRESSION: Normal x-ray examination of the knee. Electronically Signed: Ismael Eubanks, at 12:52 EDT , Service support ,
== END ==
PROVIDERS: PCP Family Medicine; Referring Provider Orthopaedic Surgery; Visit Provider Orthopaedic Surgery
DX: M25.561 Pain in right knee (principal)
CPT/HCPCS: 73564

== ENCOUNTER → 2019-09-09 | Outpatient (CLI) | payer MEDICAID, SELFPAY ==
[2019-09-08 10:51] VITALS: BMI 41.0
--- NOTE | 2019-09-09 | LES_PTH ---
PATIENT: MIGUELITO VILLAFUERTE LOC: [facility] U#:[id number] AGE/SX: 38/F ROOM: RE09/09/[address]: Dr. Sneha Briceno, : 1980 BED: DIS: 09/09/2019 SPEC #: [id number] RECD: 09/09/19 11:51 STATUS: AUSTYN ELISE #: [id number] DAVID: 09/09/19 00:[address]: Sneha Briceno DEPT: SURGICAL PATHOLOGY RECD BY: John Aldridge Tissues: Skin of leg, NOS Procedures: Special Stain Group I Surgery Specimen Level IV GMS Stain (control) HEADER OPERATION: Punch biopsy right lower leg PRE-OP DIAGNOSIS: Rule out vasculitis vs SLE TISSUE SUBMITTED: Right lower leg MICROSCOPIC DIAGNOSIS Right lower leg, punch biopsy: A fragment of skin with focal granulomatous inflammation, extensive necrobiosis, degenerated collagen with hyalinization and inflammatory infiltrate of lymphocytes and histiocytes. See note and comment. 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 Special stains including PAS and AFB for fungal organisms and acid-fast bacilli are negative. Clinical correlation/follow-up is recommended. Multiple sections have been examined. This case was sent to [facility] for expert opinion and reviewed by Dr. Neha Johnson and above diagnosis is rendered. GMS stain for fungal organisms performed here at [facility] is negative for organisms; matched control is appropriate. Case has been reviewed in consultation with Dr. Jeff who concurs with the above diagnosis. IDC:AM MICROSCOPIC DESCRIPTION Slides are reviewed. GROSS DESCRIPTION Received in fixative is one container labeled with the patient's name and designated right lower leg. The specimen consists of a punch biopsy of kumar-white skin measuring 0.3 cm in diameter and 0.3 cm in length. The specimen is totally submitted in one cassette. / ZOE:jono 09/10/19 TC:5 CPT: 93942, 02278
== END | disposition home or self-care (01) ==
LOC: LABSPEC 12:36
PROVIDERS: PCP Family Medicine; Referring Provider Family Medicine; Visit Provider Family Medicine
DX: R21 Rash and other nonspecific skin eruption (principal); R68.89 Other general symptoms and signs
CPT/HCPCS: 88305; 88312; 88313

== ENCOUNTER 2020-12-14 17:49 | Emergency (ER) | payer BC, SELFPAY ==
[2019-09-08 10:51] VITALS: BMI 41.0
[2020-12-14 17:51] VITALS: BP 135/85; PULSE 103; RESP 16; TEMP 36.9; O2SAT 97; BMI 40.4
--- NOTE | 2020-12-14 18:42 | EKG12_ITS ---
Test Reason : DYSRHYTHMIA Blood Pressure : / mmHG Vent. Rate : 090 BPM Atrial Rate : 090 BPM P-R Int : 164 ms QRS Dur : 088 ms QT Int : 376 ms P-R-T Axes : 042 010 023 degrees QTc Int : 459 ms Normal sinus rhythm Normal ECG Confirmed by ANDREW HARRIS, MICHELINE ([id number]), film editor supervisor WENDY GARNICA ([id number]) on 12/19/2020 8:47:38 AM Referred By: THERESA Confirmed By:MICHELINE MORALES MD
--- NOTE | 2020-12-14 18:44 | EDS_ITS ---
HPI History of Present Illness Chief Complaint: Other, Pain/Inj Narrative Narrative: 40-year-old female presenting with intermittent bilateral hand numbness. This does not always happen at the same time. There is no distribution to the numbness and tingling sensation. Sometimes is on the right and sometimes is on the left and she describes it as the whole hand. Patient does not have any headache, visual complaints, loss of function. Patient is unsure if this is positional in nature. Patient does state that she had chest pain a couple of days ago at 10:30 at night. She states that it lasted for about 2 hours and felt sharp. She is unsure if she ate prior to this. She states he does not have any cardiac history. She does have a history of diabetes. Patient states he has not had a return of the pain. She denies history of DVT/PE. She is not anticoagulated. She states she only gets his hand numbness symptom when she is . She checked a test 1 week ago but not when she started having the symptoms. Patient states that her last menstrual period was in October but she has irregular menstrual cycles. [facility] Medical History Back pain Depression Diabetes Knee pain Pre-eclampsia, Home Medications insulin glargine U-300 conc 64 units SQ QHS 01/29/18 [History Last Taken 06/12/18 23:00] insulin aspart U-100 15 units SUBCUT TIDCM 06/13/18 [History Last Taken 06/12/18] glipizide 5 mg PO DAILY 05/01/19 [History Last Taken Unknown] Allergy/AdvReac Type Severity Reaction Status Date / Time amoxicillin [Amoxicillin] Allergy Itching Verified 12/14/20 17:53 Family History Other Diabetes Heart disease Hypertension Social History Smoking Status: Current some day smoker tobacco type: e-cigarettes alcohol intake: never ROS ROS ED Constitutional Constitutional ED: Denies chills, fever(s) or sweats Eyes Eyes: Denies blurry vision or diplopia ENT ENT ED: Denies rhinorrhea or sore throat Cardiovascular Cardiovascular: Reports chest pain; Denies palpitations or racing heartbeat Respiratory/Chest Respiratory/Chest: Denies cough, dyspnea or sputum Gastrointestinal Gastrointestinal: Denies abdominal pain, constipation, diarrhea, nausea or vomiting Genitourinary Genitourinary ED: Denies dysuria or hematuria Musculoskeletal Musculoskeletal: Denies back pain or neck pain Integumentary Denies Abrasions or rash Neurologic Neurologic: Reports other Details: Numbness and tingling in bilateral hands intermittently. Psychiatric Psychiatric: Denies anxiety or depression EXAM Physical Exam Const Vital Signs: 12/14/20 17:51 12/14/20 18:59 12/14/20 21:42 Temperature 98.4 F Temperature Source Temporal Pulse Rate 103 H 88 Respiratory Rate 16 24 H Blood Pressure 135/85 H 148/97 H Blood Pressure Mean 101 Pulse Ox 97 98 99 Oxygen Delivery Method Room Air Room Air Positive well nourished and obese General Appearance ED: NAD Nutritional Appearance: obese HEENT Reports moist mucous membranes Negative for trauma Eyes PERRL and EOMs intact bilaterally Neck General: Negative for tenderness Chest Wall inspection of chest normal and palpation of chest normal Resp normal respiratory effort and clear to auscultation bilaterally Cardio regular rate and regular rhythm Extremity Extremity Narrative: Bilateral hands have 5/5 motor strength. Neurovascular intact with brisk cap refill to all 5 fingers bilaterally. Radial pulses are 2+ and symmetric. Neuro oriented x3 and CN's II-XII intact bilaterally Sensorium / Orientation: alert Motor Exam: strength 5/5 throughout Psych mental status grossly normal Skin no rashes or lesions noted and no wounds MDM MDM MDM Narrative Medical decision making narrative: Patient presenting with bilateral in termittent hand paresthesias. These do not occur at the same time. She denies any neck pain, headache. She denies any trauma. On examination she has a normal neurologic exam. Her radial pulses are both 2+. She has sensation and motor throughout her right hand. Negative Tinel's sign. Brisk cap refill to all 10 fingers. Since patient is also had some chest pain I did do blood work. Her CBC is unremarkable. Her BMP is also normal. High-sensitivity troponin is 3.1. D-dimer is elevated at 0.63. Her chest x-ray on my interpretation shows no acute cardiopulmonary process and the radiologist agree. Given her elevated D-dimer she did have a CTA of the chest which is also negative. Patient counseled on all findings. I do not believe she needs a delta troponin. It is unsure what the etiology of her intermittent bilateral hand numbness is but it does not appear to be emergent. Patient counseled to follow-up with her primary care physician to ensure resolution. Impression: 1. Bilateral hand paresthesias intermittent 2. Chest pain unclear etiology Lab Data Attestation: I reviewed the patient's lab results. Labs: Laboratory Results - last 24 hr 12/14/20 12/14/20 12/14/20 18:55 18:55 18:55 WBC 8.1 RBC 4.78 Hgb 12.8 Hct 40.9 MCV 85.6 MCH 26.8 L MCHC 31.3 L RDW Std Deviation 43.0 RDW Coeff of Neel 13.9 Plt Count 256 MPV 10.1 Immature Gran % (Auto) 1.100 H Neut % (Auto) 57.6 Lymph % (Auto) 33.0 Kemper % (Auto) 6.3 Eos % (Auto) 1.5 Baso % (Auto) 0.5 Absolute Neuts (auto) 4.7 Absolute Lymphs (auto) 2.68 Nucleated RBC % 0 D-Dimer Quant (PE/DVT) 0.63 H* Sodium 141 Potassium 3.6 Chloride 106 Carbon Dioxide 28.0 Anion Gap 7 BUN 11 Creatinine 0.48 L Estim Creat Clear Calc 160.30 Est GFR (MDRD) Af Amer 186 Est GFR (MDRD) Non-Af 153 BUN/Creatinine Ratio 22.9 H Glucose 101 Calcium 9.2 Troponin I High Sens 3.1 Urine Test 12/14/20 20:10 WBC RBC Hgb Hct MCV MCH MCHC RDW Std Deviation RDW Coeff of Neel Plt Count MPV Immature Gran % (Auto) Neut % (Auto) Lymph % (Auto) Kemper % (Auto) Eos % (Auto) Baso % (Auto) Absolute Neuts (auto) Absolute Lymphs (auto) Nucleated RBC % D-Dimer Quant (PE/DVT) Sodium Potassium Chloride Carbon Dioxide Anion Gap BUN Creatinine Estim Creat Clear Calc Est GFR (MDRD) Af Amer Est GFR (MDRD) Non-Af BUN/Creatinine Ratio Glucose Calcium Troponin I High Sens Urine Test Negative Radiography Diagnostic Testing: Radiology Impression Chest X-Ray 12/14/20 19:12 IMPRESSION: No acute radiographic abnormalities. Electronically Signed: Clarence Denise MD at 19:47 EDT Tel , Service support , Chest CTA 12/14/20 19:37 IMPRESSION: Normal CTA chest examination, without a demonstrated pulmonary embolism or arterial dissection. Electronically Signed: Jamel Cole MD at 21:04 EDT , Service support , Discharge Plan Triage Chief Complaint: Other, Pain/Inj ED Provider: Sushil Lopez Dx/Rx/DC Orders Instructions: ED Chest Pain, Noncardiac, ED Paraesthesias Prescriptions: No Action insulin glargine U-300 conc 300 UNIT/ML insulin pen 64 units SQ QHS RF: 0 insulin aspart U-100 100 UNITS/ML insulin pen 15 units subcut TIDCM RF: 0 glipizide 5 tablet 5 mg PO DAILY RF: 0 Primary Care Provider: Sneha Briceno Referrals: Sneha Briceno DO [Primary Care Provider] - Disposition Disposition: Home, Self Care Discharge Date/Time: 12/14/20 21:45
[2020-12-14 18:59] VITALS: O2SAT 98
--- NOTE | 2020-12-14 19:12 | RAD_ITS ---
INDICATION: chest pain EXAMINATION/TECHNIQUE: X-RAY - XR Chest 1 View COMPARISON: 08/22/2018. FINDINGS: The lungs are clear. The cardiomediastinal silhouette is unremarkable. No pleural effusion or pneumothorax. No acute osseous abnormalities. RAD/Chest 1 View (Portable) IMPRESSION: No acute radiographic abnormalities. Electronically Signed: Clarence Denise MD at 19:47 EDT Tel , Service support ,
[2020-12-14 19:18] LABS: Absolute Lymphocyte Count 2.68 X10^3/uL (0.83-4.51); Absolute Neutrophil Count 4.7 X10^3/uL (2.0-7.7); Basophil# 0.04 X10^3/uL; Basophil% 0.5 % (0-1); Eosinophil# 0.12 X10^3/uL; Eosinophils% 1.5 % (0-5); Hematocrit 40.9 % (37-47); Hemoglobin 12.8 g/dL (12.0-15.0); Lymphocyte # 2.68 X10^3/ul (0.83-4.51); Mean Corp Hgb Conc 31.3 g/dL (32-36); Mean Corpuscular Hgb 26.8 pg (27.0-32.0); Mean Corpuscular Volume 85.6 fL (81-99); Mean Platelet Vol. 10.1 fl (6.2-12.0); Monocyte# 0.51 X10^3/uL; Monocyte% 6.3 % (0-10); NRBC Flagged by Analyzer 0 % (0-5); Neutrophil # 4.69 X10^3/uL (2.7-7.7); Neutrophil % 57.6 % (47-70); Platelet Count 256 K/mm3 (150-450); RBC Distribution Width CV 13.9 % (11.6-14.6); Red Blood Count 4.78 M/mm3 (4.2-5.4); White Blood Count 8.1 K/mm3 (4.4-11.0)
[2020-12-14 19:33] LABS: D-Dimer Quantitative (DVT/PE) 0.63 FEU/ug/m (0.27-0.49)
[2020-12-14 19:36] LABS: Anion Gap 7 (5-15); BUN 11 mg/dL (7-18); BUN/Creat Ratio 22.9 RATIO (10-20); Calcium,Total 9.2 mg/dL (8.5-10.1); Chloride 106 mmol/L (98-107); Creatinine, Serum 0.48 mg/dL (0.55-1.02); EST Glomerular Filtration Rate 153 mL/min (>60); Est Glom Filt Rate - Afr Amer 186 mL/min (>60); Glucose 101 mg/dL (74-106); Potassium 3.6 mmol/L (3.5-5.1); Sodium Level 141 mmol/L (136-145); Troponin-I HS 3.1 pg/mL (3.0-53.7)
--- NOTE | 2020-12-14 19:37 | CT_ITS ---
STUDY: CTA CHEST REASON FOR EXAM: Female, 40 years old. chest pain RADIATION DOSAGE (If Supplied By Facility): CTDIvol = ( 14.81 ) mGy, DLP = ( 518.75 ) mGycm TECHNIQUE: The examination was performed with the intravenous administration of IV 100mL Isovue-370. Post-processing of the angiographic images was performed, with multiplanar reformation and 3D reconstruction. Individualized dose optimization techniques were used for this CT. COMPARISON: Chest x-ray 12/14/2020 FINDINGS: Normal enhancement of the main pulmonary artery and right and left pulmonary arteries. Normal enhancement of the bilateral peripheral pulmonary arteries. There is no demonstrated pulmonary embolism. Normal thoracic aorta and visualized great vessels. There is no demonstrated aortic dissection. Normal heart and pericardium. Normal mediastinum. Normal hilar regions. Normal visualized trachea and bronchi. The lungs are well expanded. Normal pulmonary parenchyma. Normal pleura. Normal chest wall structures. Normal osseous structures. Normal visualized upper abdomen. CT/CTA Chest W/WO Contrast IMPRESSION: Normal CTA chest examination, without a demonstrated pulmonary embolism or arterial dissection. Electronically Signed: Jamel Cole MD at 21:04 EDT , Service support ,
[2020-12-14 20:24] LABS: Internal QC Validated? YES +Cl - CLEAR BKGD; Pregnancy, Urine Negative Negative
[2020-12-14 21:42] VITALS: BP 148/97; PULSE 88; RESP 24; O2SAT 99
== END 2020-12-14 21:45 | disposition home or self-care (01) ==
PROVIDERS: Emergency Provider Student in an Organized Health Care Education/Training Program; PCP Family Medicine
DX: R20.2 Paresthesia of skin (principal); R07.9 Chest pain, unspecified; E11.9 Type 2 diabetes mellitus without complications; E66.9 Obesity, unspecified; F17.290 Nicotine dependence, other tobacco product, uncomplicated; Z68.41 Body mass index [BMI] 40.0-44.9, adult; Z79.4 Long term (current) use of insulin
CPT/HCPCS: 71045; 71275; 80048; 81025; 84484; 85025; 85379; 93005; 99284; Q9967; A4216

== ENCOUNTER 2021-07-31 08:31 | Outpatient (CLI) | payer MEDICAID, SELFPAY ==
[2021-08-06 20:32] LABS: HPV APTIMA, High Risk Negative (Negative)
== END 2021-07-31 23:59 | disposition home or self-care (01) ==
LOC: LABSPEC 08-01 08:32
PROVIDERS: PCP Family Medicine; Visit Provider Obstetrics & Gynecology
DX: Z12.4 Encounter for screening for malignant neoplasm of cervix (principal)
CPT/HCPCS: 87624; 88175; G0145

== ENCOUNTER 2021-08-23 20:39 | Emergency (ER) | payer OTHER, MEDICAID, SELFPAY ==
[2021-08-23 20:40] VITALS: BP 149/98; PULSE 100; RESP 18; TEMP 36.8; O2SAT 98; BMI 39.5
[2021-08-23 20:44] VITALS: O2SAT 97
[2021-08-23] MEDS: Loratadine 10 MG Tablet PO (21:19)
--- NOTE | 2021-08-23 21:49 | EDS_ITS ---
HPI History of Present Illness Chief Complaint: Cold Sx Informant: patient Narrative Narrative: Sinus congestion for the past 2 days unable to breathe trouble eating due to congestion. Has not taken any medications denies seasonal allergies but denies fevers or cough. Denies history of hypertension, however did state had gestational hypertension in the past. [facility] Medical History Back pain Depression Diabetes Knee pain Pre-eclampsia, Home Medications glipizide 5 mg PO DAILY 05/01/19 [History Last Taken Unknown] bupropion HCl 150 mg tablet,12 hr sustained-release 150 mg PO DAILY 07/31/21 [History Last Taken Unknown] fluoxetine 20 mg capsule 20 mg PO DAILY 07/31/21 [History Last Taken Unknown] insulin glargine 100 unit/mL (3 mL) subcutaneous pen 40 unit SUBCUT ONCE ml 07/31/21 [History Last Taken Unknown] lisinopril 10 mg tablet 10 mg PO DAILY 07/31/21 [History Last Taken Unknown] loratadine 10 mg PO DAILY #30 tab 08/23/21 [Rx Last Taken Unknown] pseudoephedrine HCl 30 mg PO Q6H PRN #14 tab 08/23/21 [Rx Last Taken Unknown] Allergy/AdvReac Type Severity Reaction Status Date / Time amoxicillin [Amoxicillin] Allergy Itching Verified 08/23/21 20:41 Family History Father Diabetes Grandmother Diabetes Hypertension Grandfather Diabetes Mother Hypertension Other Heart disease Social History Smoking Status: Current some day smoker tobacco type: cigarettes alcohol intake: never substance use type: does not use caffeine: Yes what type of physical activity do you participate in: none seatbelt use: always do you feel safe at home: Yes additional social history: Ever POLLARD ED Constitutional Constitutional ED: Denies chills, fever(s) or sweats Eyes Eyes: Denies change in vision ENT ENT ED: Reports other Details: Sinus congestion ; Denies dysphagia or sore throat Cardiovascular Cardiovascular: Denies chest pain, leg edema, palpitations or racing heartbeat Respiratory/Chest Respiratory/Chest: Denies cough, dyspnea or dyspnea on exertion Gastrointestinal Gastrointestinal: Denies abdominal pain, diarrhea, nausea or vomiting Genitourinary Genitourinary ED: Denies dysuria, hematuria or urinary frequency Musculoskeletal Musculoskeletal: Denies back pain, extremity pain or neck pain Integumentary Denies rash or wounds Neurologic Neurologic: Denies headache(s), paresthesias or weakness EXAM Physical Exam Const Vital Signs: 08/23/21 20:40 08/23/21 20:44 08/23/21 21:53 Temperature 98.3 F 97.6 F L Temperature Source Temporal Pulse Rate 100 78 Respiratory Rate 18 18 Respiratory Effort Normal Respiratory Depth Normal Respiratory Pattern Normal Blood Pressure 149/98 H 138/72 H Blood Pressure Mean 115 Pulse Ox 98 98 Oxygen Delivery Method Room Air Room Air Positive well nourished and well developed General Appearance ED: well developed and NAD HEENT Reports moist mucous membranes HEENT Narrative: Swollen turbinates bilaterally no sinus tenderness. No exudative drainage. normocephalic and atraumatic Eyes PERRL, EOMs intact bilaterally and conjunctivae normal General Eye ED: Yes normal appearance of both eyes Neck no lymphadenopathy and supple General: Negative for tenderness Chest Wall Chest: Negative for tenderness Resp normal respiratory effort and normal air movement Effort and Inspection: symmetric chest movement; Negative for respiratory distress Cardio regular rate, regular rhythm and no murmurs Peripheral Pulses: pulses 2+ throughout GI normal to inspection, nondistended, normoactive bowel sounds and non-tender Palpation: Negative for guarding or rebound tenderness present Back/Spine no CVA tenderness and no thoracic nor lumbar tenderness Extremity normal to inspection General Extremety ED: Negative for edema or tenderness General Extremity: Negative for edema Neuro oriented x3 and no sensory deficits noted Sensorium / Orientation: awake and alert Skin no rashes or lesions noted and no wounds MDM MDM MDM Narrative Medical decision making narrative: Patient nontoxic vital signs stable ritchie estion on exam with swollen turbinates. Denies history of hypertension. Sudafed loratadine started. Work note and follow-up with her PCP. Discharge Plan Triage Chief Complaint: Cold Sx ED Provider: Noel Loaiza Dx/Rx/DC Orders Clinical Impression: Congestion of nasal sinus Instructions: Understanding Your Sinuses Prescriptions: New pseudoephedrine HCl 30 mg tablet 30 mg PO Q6H PRN (Reason: nasal congestion) Qty: 14 RF: 0 loratadine 10 mg tablet 10 mg PO DAILY Qty: 30 RF: 0 No Action Lantus Solostar U-100 Insulin 100 unit/mL (3 mL) insulin pen 40 unit subcut ONCE RF: 0 bupropion HCl [Wellbutrin SR] 150 mg tablet sustained-release 12 hr 150 mg PO DAILY RF: 0 fluoxetine [Prozac] 20 mg capsule 20 mg PO DAILY RF: 0 lisinopril 10 mg tablet 10 mg PO DAILY RF: 0 glipizide 5 tablet 5 mg PO DAILY RF: 0 Primary Care Provider: Sneha Briceno Referrals: Sneha Briceno DO [Primary Care Provider] - 1 Week if not improving Disposition Disposition: Home, Self Care Discharge Date/Time: 08/23/21 21:54
[2021-08-23 21:53] VITALS: BP 138/72; PULSE 78; RESP 18; TEMP 36.4; O2SAT 98
== END 2021-08-23 21:54 | disposition home or self-care (01) ==
PROVIDERS: Emergency Provider Emergency Medicine; PCP Family Medicine; Visit Provider Emergency Medicine
DX: R09.81 Nasal congestion (principal); E11.9 Type 2 diabetes mellitus without complications; Z79.4 Long term (current) use of insulin; F32.A Depression, unspecified; Z79.899 Other long term (current) drug therapy; F17.210 Nicotine dependence, cigarettes, uncomplicated
CPT/HCPCS: 99283

== ENCOUNTER 2021-10-11 08:13 | Emergency (ER) | payer OTHER, MEDICAID, SELFPAY ==
[2021-10-11 08:14] VITALS: BP 143/92; PULSE 97; RESP 18; TEMP 36.4; O2SAT 96; BMI 41.8
--- NOTE | 2021-10-11 08:29 | CT_ITS ---
STUDY: CT ABDOMEN AND PELVIS WITHOUT CONTRAST REASON FOR EXAM: Female, 40 years old. Pain RLQ -- wait for preg test please RADIATION DOSAGE (If Supplied By Facility): CTDIvol = ( 23.16 ) mGy, DLP = ( 1267.13 ) mGycm TECHNIQUE: Transaxial images were obtained from the dome of the diaphragm to the symphysis pubis without oral contrast, and without intravenous contrast. Sagittal and coronal images were reconstructed. Individualized dose optimization techniques were used for this CT. COMPARISON: Comparison is made with prior study dated 12/07/2017. FINDINGS: The visualized lung bases are unremarkable. The visualized portions of the heart are within normal limits. There is decreased attenuation of the liver consistent with steatosis. Hepatomegaly. There is a small solitary gallstone. Normal spleen. Normal pancreas. Normal bilateral adrenal glands. Normal right kidney. Normal left kidney. Normal visualized stomach. Normal small intestine. Normal colon. The appendix is visualized and appears normal. Normal abdominal aorta. Normal inferior vena cava. There is borderline retroperitoneal lymphadenopathy with enlarged nodes no greater than 10mm in the short axis diameter. Normal urinary bladder. Normal abdominal wall. Normal osseous structures. CT/Abdomen/Pelvis without Cont IMPRESSION: Diffuse fatty infiltration. Hepatomegaly. Solitary gallstone. Electronically Signed: Ismael Eubanks MD at 10:02 EDT ,
--- NOTE | 2021-10-11 08:30 | ED.VIS.GI ---
HPI HPI - GI History of Present Illness Chief Complaint: Abd Pain Informant: patient Abdominal Pain/Flank Pain Onset: Yesterday Context: Gradual Onset Timing: Continuous Quality: Dull Location: RLQ (Without migration or radiation) Current Severity: Moderate Maximum Severity: Moderate Nausea/Vomiting/Emesis GI Symptom: Negative for Nausea and Vomiting Diarrhea/Melena/Hematochezia GI Symptom: Negative for Diarrhea, Melena and Hematochezia Associated Symptoms Associated Symptoms: Negative for Dysuria, Frequency, Hematuria and Urgency Narrative Narrative: Abdominal pain right lower quadrant gradual since last night, constant has not gone away, does not usually have abdominal pain like this. No prior abdominal surgeries. Irregular menstrual cycles, states could be but has not checked, last normal menstrual cycle was in the middle to end of August which was more than a month ago. No prior abdominal surgeries. Minor anorexia associated with this. When she ate last night it did not make the pain worse. [facility] Medical History Back pain Depression Diabetes Knee pain Pre-eclampsia, Home Medications glipizide 5 mg PO DAILY 05/01/19 [History Last Taken Unknown] bupropion HCl 150 mg tablet,12 hr sustained-release 150 mg PO DAILY 07/31/21 [History Last Taken Unknown] fluoxetine 20 mg capsule 20 mg PO DAILY 07/31/21 [History Last Taken Unknown] insulin glargine 100 unit/mL (3 mL) subcutaneous pen 40 unit SUBCUT ONCE ml 07/31/21 [History Last Taken Unknown] lisinopril 10 mg tablet 10 mg PO DAILY 07/31/21 [History Last Taken Unknown] Allergy/AdvReac Type Severity Reaction Status Date / Time amoxicillin [Amoxicillin] Allergy Itching Verified 10/11/21 08:16 Family History Father Diabetes Grandmother Diabetes Hypertension Grandfather Diabetes Mother Hypertension Other Heart disease Social History Smoking Status: Current some day smoker tobacco type: cigarettes alcohol intake: never substance use type: does not use caffeine: Yes what type of physical activity do you participate in: none seatbelt use: always do you feel safe at home: Yes additional social history: Fiance-Aries ROS ROS ED Constitutional Constitutional ED: Denies chills or fever(s) Eyes Eyes: Denies change in vision or diplopia ENT ENT ED: Denies rhinorrhea or sore throat Cardiovascular Cardiovascular: Denies chest pain or palpitations Respiratory/Chest Respiratory/Chest: Denies cough or dyspnea Gastrointestinal Gastrointestinal: Reports as per HPI and abdominal pain; Denies diarrhea, nausea or vomiting Genitourinary Genitourinary ED: Denies dysuria or hematuria Musculoskeletal Musculoskeletal: Denies back pain or neck pain Integumentary Denies abscess or rash Neurologic Neurologic: Denies headache(s), paresthesias or weakness Psychiatric Psychiatric: Denies anxiety or suicidal thoughts EXAM Physical Exam Const Vital Signs: 10/11/21 08:14 Temperature 97.6 F L Temperature Source Temporal Pulse Rate 97 Respiratory Rate 18 Blood Pressure 143/92 H Blood Pressure Mean 109 Pulse Ox 96 Oxygen Delivery Method Room Air Positive well nourished and well developed General Appearance ED: well developed and NAD HEENT Reports moist mucous membranes normocephalic and atraumatic Eyes PERRL and EOMs intact bilaterally Neck full ROM and supple Resp normal respiratory effort and clear to auscultation bilaterally Cardio regular rate, regular rhythm and no murmurs GI non-distended GI Narrative: Mild tenderness right lower quadrant and medially toward suprapubic abdomen, otherwise nontender. No guarding or rebound tenderness. Mildly positive psoas sign, negative obturator and Rovsing. No right upper quadrant tenderness. Auscultation: normoactive bowel sounds Palpation: soft Back/Spine no CVA tenderness General Back: other FROM Extremity normal to inspection General Extremety ED: Negative for edema, pulses abnormal or tenderness General Extremity: Negative for edema or pulses abnormal Neuro oriented x3, CN's II-XII intact bilaterally and no sensory deficits noted Sensorium / Orientation: awake and alert Motor Exam: strength 5/5 throughout Skin no rashes or lesions noted and no wounds MDM MDM MDM Narrative Medical decision making narrative: Verified that the patient's test is negative, labs are normal, except for urine which showed leukocyte esterase and a few white blood cells, no symptoms so that was sent for culture. Her CT shows a normal appendix without any inflammatory changes to suggest appendicitis, and was negative for anything else acute except there were some retroperitoneal lymph nodes seen. Given her pain and location, I suspect this is mesenteric adenitis a self-limiting process and supportive care is advised. I did discuss with her the gallstone, she is not having biliary colic today and is nontender in the right upper quadrant while she was having discomfort in her right lower quadrant. Lab Data Attestation: I reviewed the patient's lab results. Labs: Laboratory Results - last 24 hr 10/11/21 10/11/21 10/11/21 08:45 08:45 08:45 WBC 6.5 RBC 4.67 Hgb 12.3 Hct 38.7 MCV 82.9 MCH 26.3 L MCHC 31.8 L RDW Std Deviation 39.9 RDW Coeff of Neel 13.3 Plt Count 183 MPV 10.1 Immature Gran % (Auto) 0.900 Neut % (Auto) 62.1 Lymph % (Auto) 28.5 [place] % (Auto) 6.3 Eos % (Auto) 1.7 Baso % (Auto) 0.5 Absolute Neuts (auto) 4.0 Absolute Lymphs (auto) 1.85 Nucleated RBC % 0 Sodium 138 Potassium 3.9 Chloride 106 Carbon Dioxide 26.0 Anion Gap 6 BUN 10 Creatinine 0.53 L Estim Creat Clear Calc 145.18 Est GFR (MDRD) Af Amer 166 Est GFR (MDRD) Non-Af 138 BUN/Creatinine Ratio 19.0 Glucose 236 H Calcium 8.3 L Serum , Qual NEGATIVE Urine Color Urine Clarity Urine pH Ur Specific [place] Urine Protein Urine Glucose (UA) Urine Ketones Urine Occult Blood Urine Nitrite Urine Bilirubin Urine Urobilinogen Ur Leukocyte Esterase Urine RBC Urine WBC Ur Squamous Epith Cells Urine Bacteria Urine Mucus 10/11/21 08:45 WBC RBC Hgb Hct MCV MCH MCHC RDW Std Deviation RDW Coeff of Neel Plt Count MPV Immature Gran % (Auto) Neut % (Auto) Lymph % (Auto) [place] % (Auto) Eos % (Auto) Baso % (Auto) Absolute Neuts (auto) Absolute Lymphs (auto) Nucleated RBC % Sodium Potassium Chloride Carbon Dioxide Anion Gap BUN Creatinine Estim Creat Clear Calc Est GFR (MDRD) Af Amer Est GFR (MDRD) Non-Af BUN/Creatinine Ratio Glucose Calcium Serum , Qual Urine Color Yellow Urine Clarity Sl. Cloudy Urine pH 6.0 Ur Specific [place] 1.020 Urine Protein Negative Urine Glucose (UA) 100 H Urine Ketones Negative Urine Occult Blood Negative Urine Nitrite Negative Urine Bilirubin Negative Urine Urobilinogen Normal Ur Leukocyte Esterase 100 H Urine RBC 0 SEEN Urine WBC 10-25 SEEN Ur Squamous Epith Cells 0-5 SEEN Urine Bacteria 1+ Urine Mucus 0 SEEN Radiography Diagnostic Testing: Clinical Impression(s) from Imaging Studies Abdomen/Pelvis CT 10/11/21 08:29 IMPRESSION: Diffuse fatty infiltration. Hepatomegaly. Solitary gallstone. Electronically Signed: Ismael Eubanks MD at 10:02 EDT , Discharge Plan Triage Chief Complaint: Abd Pain ED Provider: Ford Albright Dx/Rx/DC Orders Clinical Impression: Acute mesenteric adenitis, Gallstone Instructions: What Are Gallstones, ED Adenitis, Mesenteric Prescriptions: No Action Lantus Solostar U-100 Insulin 100 unit/mL (3 mL) insulin pen 40 unit subcut ONCE RF: 0 bupropion HCl [Wellbutrin SR] 150 mg tablet sustained-release 12 hr 150 mg PO DAILY RF: 0 fluoxetine [Prozac] 20 mg capsule 20 mg PO DAILY RF: 0 lisinopril 10 mg tablet 10 mg PO DAILY RF: 0 glipizide 5 tablet 5 mg PO DAILY RF: 0 Primary Care Provider: Sneha Briceno Referrals: Sneha Briceno DO [Primary Care Provider] - 1 Week if not improving Activity Restrictions/Additional Instructions: Tylenol, ibuprofen as needed for discomfort Disposition Disposition: Home, Self Care
[2021-10-11] MEDS: 0.9% Normal Saline 1,000 ML 125 ML IV (08:51)
[2021-10-11 08:55] LABS: Mucous, Urine 0 SEEN /hpf (<or=2+); Red Blood Cells-Urine 0 SEEN /hpf (0-5)
[2021-10-11 08:56] LABS: Absolute Lymphocyte Count 1.85 X10^3/uL (0.83-4.51); Basophil# 0.03 X10^3/uL; Basophil% 0.5 % (0-1); Eosinophil# 0.11 X10^3/uL; Eosinophils% 1.7 % (0-5); Hematocrit 38.7 % (37-47); Hemoglobin 12.3 g/dL (12.0-15.0); Lymphocyte # 1.85 X10^3/ul (0.83-4.51); Lymphocyte % 28.5 % (19-41); Mean Corp Hgb Conc 31.8 g/dL (32-36); Mean Corpuscular Hgb 26.3 pg (27.0-32.0); Mean Corpuscular Volume 82.9 fL (81-99); Mean Platelet Vol. 10.1 fl (6.2-12.0); Monocyte# 0.41 X10^3/uL; Monocyte% 6.3 % (0-10); NRBC Flagged by Analyzer 0 % (0-5); Neutrophil # 4.04 X10^3/uL (2.7-7.7); Neutrophil % 62.1 % (47-70); Platelet Count 183 K/mm3 (150-450); RBC Distribution Width CV 13.3 % (11.6-14.6); RBC Distribution Width SD 39.9 fl (35.1-43.9); Red Blood Count 4.67 M/mm3 (4.2-5.4); White Blood Count 6.5 K/mm3 (4.4-11.0)
[2021-10-11 08:58] LABS: Color, Urine Yellow (Yellow); Glucose, Dipstick 100 mg/dl (Normal); Ketone-Dipstick Negative (Negative); Leukocyte Esterase-Dipstick 100 /ul (Negative); Nitrite-Dipstick Negative (Negative); Occult Blood-Urine Negative /ul (Negative); Protein-Dipstick Negative (Negative); Urine Bilirubin Dipstick Negative (Negative); Urine Clarity Sl. Cloudy (Clear); Urine Urobilinogen Normal (Normal)
[2021-10-11 09:07] LABS: Bacteria 1+ /hpf (None Seen); Squamous Epithelial Cells - UA 0-5 SEEN /hpf (5-10); White Blood Cells 10-25 SEEN /hpf (0-5)
[2021-10-11 09:09] LABS: Anion Gap 6 (5-15); BUN 10 mg/dL (7-18); Calcium,Total 8.3 mg/dL (8.5-10.1); Chloride 106 mmol/L (98-107); Creatinine, Serum 0.53 mg/dL (0.55-1.02); EST Glomerular Filtration Rate 138 mL/min (>60); Est Glom Filt Rate - Afr Amer 166 mL/min (>60); Estimated Creatinine Clearance 145.18 ml/min; Glucose 236 mg/dL (74-106); Potassium 3.9 mmol/L (3.5-5.1); Sodium Level 138 mmol/L (136-145)
[2021-10-11 09:22] LABS: Internal QC Validated? YES +Cl - CLEAR BKGD; Pregnancy, Serum, hCG Quali. NEGATIVE Negative
[2021-10-11] MEDS: Ketorolac 30 MG/ML Syringe IV (10:34)
[2021-10-11 10:37] VITALS: BP 134/69; PULSE 72; RESP 15; O2SAT 97
== END 2021-10-11 10:38 | disposition home or self-care (01) ==
PROVIDERS: Emergency Provider Emergency Medicine; PCP Family Medicine; Visit Provider Emergency Medicine
DX: I88.0 Nonspecific mesenteric lymphadenitis (principal); K80.20 Calculus of gallbladder without cholecystitis without obstruction; E11.9 Type 2 diabetes mellitus without complications; N92.6 Irregular menstruation, unspecified; F17.210 Nicotine dependence, cigarettes, uncomplicated; Z79.4 Long term (current) use of insulin; Z79.899 Other long term (current) drug therapy
CPT/HCPCS: 74176; 80048; 81001; 84703; 85025; 87086; 87088; 96361; 96374; 99282; J7030; A4216

== ENCOUNTER 2021-11-03 06:16 | Emergency (ER) | payer OTHER, MEDICAID, SELFPAY ==
[2021-11-03 06:18] VITALS: BP 158/103; PULSE 86; RESP 24; TEMP 35.5; O2SAT 96; BMI 41.5
--- NOTE | 2021-11-03 06:31 | EKG12_ITS ---
Test Reason : CP Blood Pressure : / mmHG Vent. Rate : 086 BPM Atrial Rate : 086 BPM P-R Int : 150 ms QRS Dur : 092 ms QT Int : 386 ms P-R-T Axes : 033 -01 009 degrees QTc Int : 461 ms Normal sinus rhythm Normal ECG Confirmed by ANDREW HARRIS, MICHELINE ([id number]), associate editor WENDY GARNICA ([id number]) on 11/06/2021 9:54:27 AM Referred By: Confirmed By:MICHELINE MORALES MD
--- NOTE | 2021-11-03 06:31 | RAD_ITS ---
STUDY: X-RAY CHEST REASON FOR EXAM: Female, 40 years old. chest pain TECHNIQUE: PA and lateral. COMPARISON: 12/14/2020. FINDINGS: LUNGS: No consolidation. No pneumothorax. MEDIASTINUM: Unremarkable. CARDIAC SILHOUETTE: Not enlarged. BONES AND SOFT TISSUES: No acute abnormalities. RAD/Chest PA and Lateral IMPRESSION: Normal chest x-ray. Electronically Signed: Sweetie Ruiz MD at 7:00 EDT ,
--- NOTE | 2021-11-03 06:33 | EX.ED.DYSGE1 ---
HPI History of Present Illness Chief Complaint: Chest Pain Narrative Narrative: Is a 40-year-old female with type 2 diabetes. She states she went to bed normally last night and then awoke around 4 this morning with some sharp mid to left upper chest discomfort. She denies any recent trauma or excessive activity. She denies any radiation of the pain. She denies any nausea vomiting diaphoresis shortness of breath associated with this. She states the pain is been relatively constant since its onset. She states that she was concerned this could be cardiac in nature especially with her diabetic status and therefore comes in for evaluation. She denies any recent travel surgery or history of DVT/PE [facility] Medical History Back pain Depression Diabetes Knee pain Pre-eclampsia, Home Medications glipizide 5 mg tablet, extended release 24 hr 5 mg PO DAILY 05/01/19 [History Last Taken Unknown] bupropion HCl 150 mg tablet,12 hr sustained-release (Wellbutrin SR) 150 mg PO DAILY 07/31/21 [History Last Taken Unknown] fluoxetine 20 mg capsule (Prozac) 20 mg PO DAILY 07/31/21 [History Last Taken Unknown] insulin glargine 100 unit/mL (3 mL) subcutaneous pen (Lantus Solostar U-100 Insulin) 40 unit subcut ONCE 07/31/21 [History Last Taken Unknown] lisinopril 10 mg tablet 10 mg PO DAILY 07/31/21 [History Last Taken Unknown] Allergy/AdvReac Type Severity Reaction Status Date / Time amoxicillin [Amoxicillin] Allergy Itching Verified 11/03/21 06:17 Family History Father Diabetes Grandmother Diabetes Hypertension Grandfather Diabetes Mother Hypertension Other Heart disease Surgical History no surgical history Social History Smoking Status: Current some day smoker tobacco type: cigarettes and cigars alcohol intake: never substance use type: does not use caffeine: Yes what type of physical activity do you participate in: none seatbelt use: always do you feel safe at home: Yes additional social history: Ever [employer] ED Constitutional Constitutional ED: Denies chills or fever(s) ENT ENT ED: Denies sore throat Cardiovascular Cardiovascular: Reports chest pain; Denies palpitations or racing heartbeat Respiratory/Chest Respiratory/Chest: Denies cough or dyspnea Gastrointestinal Gastrointestinal: Denies abdominal pain, diarrhea, nausea or vomiting Genitourinary Genitourinary ED: Denies dysuria Musculoskeletal Musculoskeletal: Denies myalgias Integumentary Denies rash Neurologic Neurologic: Denies headache(s) Hematologic/Lymphatic Hematologic/Lymphatic: Denies easy bleeding or easy bruising EXAM Physical Exam Const Vital Signs: 11/03/21 06:18 11/03/21 06:21 Temperature 96 F L Temperature Source Temporal Pulse Rate 86 Respiratory Rate 24 H Respiratory Effort Normal Respiratory Pattern Normal Blood Pressure 158/103 H Blood Pressure Mean 121 Pulse Ox 96 Oxygen Delivery Method Room Air Positive well nourished and well developed General Appearance ED: well developed Eyes PERRL and EOMs intact bilaterally Neck supple and no JVD Chest Wall Chest Narrative: There is reproducible pain on palpation of the left anterior chest wall that patient states is similar to the pain that she is experiencing. No bony deformity or crepitance Resp normal respiratory effort and clear to auscultation bilaterally Cardio regular rate and regular rhythm Rate: other Other Details: Radial pulses are plus 2 out of 4 bilaterally are equal and symmetric GI normal to inspection, nondistended, normoactive bowel sounds, non-tender and non-distended GI Narrative: No voluntary guarding or rigidity no pulsatile mass Auscultation: normoactive bowel sounds Palpation: soft Extremity normal to inspection Extremity Narrative: No asymmetric edema no pitting edema negative Homans' sign bilaterally Neuro oriented x3 and CN's II-XII intact bilaterally Sensorium / Orientation: alert Psych mental status grossly normal Skin no rashes or lesions noted MDM MDM MDM Narrative Medical decision making narrative: Patient presented to the ER mildly hypertensive but otherwise in no acute distress. She has diabetes and vaping as her main risk factors for cardiac disease and secondary to this a basic work-up will be obtained. EKG is sinus rhythm chest x-ray reveals no acute lung pathology and initial troponin is normal at 3. I feel that if the delta troponin does not elevate patient is otherwise safe for discharge with a negative work-up in the hospital and low to mild risk factors for CAD Lab Data Attestation: I reviewed the patient's lab results. Labs: Laboratory Results - last 24 hr 11/03/21 11/03/21 11/03/21 06:22 06:22 06:45 WBC 6.5 RBC 4.82 Hgb 12.5 Hct 39.8 MCV 82.6 MCH 25.9 L MCHC 31.4 L RDW Std Deviation 40.9 RDW Coeff of Neel 14.0 Plt Count 208 MPV 10.6 Immature Gran % (Auto) 0.800 Neut % (Auto) 51.3 Lymph % (Auto) 38.7 [place] % (Auto) 6.9 Eos % (Auto) 1.8 Baso % (Auto) 0.5 Absolute Neuts (auto) 3.4 Absolute Lymphs (auto) 2.53 Nucleated RBC % 0 Sodium 139 Potassium 3.7 Chloride 107 Carbon Dioxide 29.0 Anion Gap 3 L BUN 14 Creatinine 0.54 L Estim Creat Clear Calc 142.49 Est GFR (MDRD) Af Amer 162 Est GFR (MDRD) Non-Af 134 BUN/Creatinine Ratio 26.0 H Glucose 260 H Calcium 8.9 Magnesium 1.9 Troponin I High Sens 3 Urine Test Negative Radiography Diagnostic Testing: Clinical Impression(s) from Imaging Studies Chest X-Ray 11/03/21 06:31 IMPRESSION: Normal chest x-ray. Electronically Signed: Sweetie Ruiz MD at 7:00 EDT , 2 view chest x-ray as interpreted by the emergency medicine physician reveals no acute infiltrate pneumothorax or pleural effusion Discharge Plan Triage Chief Complaint: Chest Pain ED Provider: Jens Ag Dx/Rx/DC Orders Clinical Impression: Acute nonspecific chest pain with low risk of coronary artery disease, Type 2 diabetes mellitus Instructions: ED Chest Pain, Uncertain Cause Prescriptions: No Action Lantus Solostar U-100 Insulin 100 unit/mL (3 mL) insulin pen 40 unit subcut ONCE Label Comments: Patient is unsure of insulin name bupropion HCl [Wellbutrin SR] 150 mg tablet sustained-release 12 hr 150 mg PO DAILY fluoxetine [Prozac] 20 mg capsule 20 mg PO DAILY lisinopril 10 mg tablet 10 mg PO DAILY glipizide 5 tablet 5 mg PO DAILY Primary Care Provider: Sneha Briceno Referrals: Sneha Briceno DO [Primary Care Provider] -
[2021-11-03 06:42] LABS: Absolute Lymphocyte Count 2.53 X10^3/uL (0.83-4.51); Absolute Neutrophil Count 3.4 X10^3/uL (2.0-7.7); Basophil# 0.03 X10^3/uL; Basophil% 0.5 % (0-1); Eosinophil# 0.12 X10^3/uL; Eosinophils% 1.8 % (0-5); Hematocrit 39.8 % (37-47); Hemoglobin 12.5 g/dL (12.0-15.0); Lymphocyte # 2.53 X10^3/ul (0.83-4.51); Lymphocyte % 38.7 % (19-41); Mean Corp Hgb Conc 31.4 g/dL (32-36); Mean Corpuscular Hgb 25.9 pg (27.0-32.0); Mean Corpuscular Volume 82.6 fL (81-99); Mean Platelet Vol. 10.6 fl (6.2-12.0); Monocyte# 0.45 X10^3/uL; Monocyte% 6.9 % (0-10); NRBC Flagged by Analyzer 0 % (0-5); Neutrophil # 3.35 X10^3/uL (2.7-7.7); Neutrophil % 51.3 % (47-70); Platelet Count 208 K/mm3 (150-450); RBC Distribution Width SD 40.9 fl (35.1-43.9); Red Blood Count 4.82 M/mm3 (4.2-5.4); White Blood Count 6.5 K/mm3 (4.4-11.0)
[2021-11-03] MEDS: Aspirin 325 MG Tablet PO (06:42)
[2021-11-03 06:53] LABS: Internal QC Validated? YES +Cl - CLEAR BKGD; Pregnancy, Urine Negative Negative
[2021-11-03 07:01] LABS: Anion Gap 3 (5-15); BUN 14 mg/dL (7-18); Calcium,Total 8.9 mg/dL (8.5-10.1); Chloride 107 mmol/L (98-107); Creatinine, Serum 0.54 mg/dL (0.55-1.02); EST Glomerular Filtration Rate 134 mL/min (>60); Est Glom Filt Rate - Afr Amer 162 mL/min (>60); Estimated Creatinine Clearance 142.49 ml/min; Glucose 260 mg/dL (74-106); Magnesium 1.9 mg/dL (1.6-2.6); Potassium 3.7 mmol/L (3.5-5.1); Sodium Level 139 mmol/L (136-145); Troponin-I HS 3 pg/mL (3.0-54.0)
[2021-11-03] MEDS: 0.9% Normal Saline 1,000 ML 999 ML IV (07:08)
[2021-11-03 07:09] VITALS: BP 141/96; PULSE 79; RESP 21; O2SAT 96
[2021-11-03 08:53] LABS: Troponin-I HS 4 pg/mL (3.0-54.0)
[2021-11-03 09:02] VITALS: BP 116/71; PULSE 78; RESP 16; O2SAT 96
[2021-11-03 09:14] VITALS: BP 116/71; PULSE 81; RESP 16; O2SAT 98
== END 2021-11-03 09:14 | disposition home or self-care (01) ==
PROVIDERS: Emergency Provider Emergency Medicine; PCP Family Medicine; Visit Provider Emergency Medicine
DX: R07.9 Chest pain, unspecified (principal); E11.9 Type 2 diabetes mellitus without complications; Z79.4 Long term (current) use of insulin; F32.A Depression, unspecified; F17.210 Nicotine dependence, cigarettes, uncomplicated; Z79.899 Other long term (current) drug therapy
CPT/HCPCS: 71046; 80048; 81025; 83735; 84484; 85025; 93005; 96360; 99285; J7030; A4216

== ENCOUNTER 2021-11-28 12:04 | Emergency (ER) | payer OTHER, MEDICAID, SELFPAY ==
[2021-11-28 12:05] VITALS: BP 151/97; PULSE 123; RESP 16; TEMP 37.2; O2SAT 100; BMI 41.8
--- NOTE | 2021-11-28 12:32 | US_ITS ---
STUDY: ABDOMINAL ULTRASOUND - RIGHT UPPER QUADRANT REASON FOR VISIT: Female, 41 years old . Right upper quadrant pain. TECHNIQUE: Ultrasound evaluation of the right upper quadrant was performed with real-time and static montano-scale imaging. TECHNICAL QUALITY: Adequate. COMPARISON: Comparison is made with prior study 12/05/2015. FINDINGS: Liver: The liver measures 18 cm. There is increased echogenicity consistent with fatty infiltration. The bile ducts are within normal limits. There is hepatic color flow. The direction of portal flow is hepatopetal. There is no demonstrated mass lesion. Gallbladder: Normal distended gallbladder. The gallbladder wall measures 3 mm. There is a negative sonographic Tillman''s sign. There is no pericholecystic fluid. There are no gallstones. There is an 8 mm x 5 mm x 7 mm gallbladder polyp. Sludge is seen within the gallbladder lumen. Common Bile Duct (C.B.D.): The common bile duct measures 3 mm. Pancreas: There is nonvisualization of the pancreas. Right Kidney: Normal size of the right kidney. The right kidney measures 14 cm x 7.1 cm x 5.8 cm. Normal renal cortex. The right cortex measures 1.8 cm. There is no demonstrated renal mass or cyst. There is no right hydronephrosis. US/Gallbladder IMPRESSION: Fatty infiltration of the liver. Gallbladder polyp. Small amount of sludge is seen in the gallbladder lumen. Electronically Signed: Ismael Eubanks MD at 13:36 EDT ,
[2021-11-28 12:41] LABS: Mucous, Urine 0 SEEN /hpf (<or=2+); Red Blood Cells-Urine 0 SEEN /hpf (0-5)
[2021-11-28] MEDS: Ondansetron 4 MG/2 ML Vial IV (12:42)
[2021-11-28] MEDS: Morphine 4 MG/ML Syringe IV (12:42)
[2021-11-28] MEDS: 0.9% Normal Saline 1,000 ML 1000 ML IV (12:42)
[2021-11-28 12:49] LABS: Absolute Lymphocyte Count 0.51 X10^3/uL (0.83-4.51); Absolute Neutrophil Count 2.9 X10^3/uL (2.0-7.7); Basophil# 0.01 X10^3/uL; Basophil% 0.3 % (0-1); Color, Urine Yellow (Yellow); Eosinophil# 0.06 X10^3/uL; Eosinophils% 1.6 % (0-5); Glucose, Dipstick 100 mg/dl (Normal); Hematocrit 39.5 % (37-47); Ketone-Dipstick 5 mg/dl (Negative); Leukocyte Esterase-Dipstick 25 /ul (Negative); Lymphocyte # 0.51 X10^3/ul (0.83-4.51); Lymphocyte % 13.2 % (19-41); Mean Corp Hgb Conc 32.9 g/dL (32-36); Mean Corpuscular Volume 82.1 fL (81-99); Monocyte# 0.36 X10^3/uL; Monocyte% 9.3 % (0-10); NRBC Flagged by Analyzer 0 % (0-5); Neutrophil # 2.89 X10^3/uL (2.7-7.7); Neutrophil % 74.6 % (47-70); Nitrite-Dipstick Negative (Negative); Occult Blood-Urine Negative /ul (Negative); POSITIVE DIFFERENTIAL YES; Platelet Count 154 K/mm3 (150-450); Protein-Dipstick 15 mg/dl (Negative); RBC Distribution Width CV 14.1 % (11.6-14.6); RBC Distribution Width SD 41.4 fl (35.1-43.9); Red Blood Count 4.81 M/mm3 (4.2-5.4); Urine Bilirubin Dipstick Negative (Negative); Urine Clarity Sl. Cloudy (Clear); Urine Urobilinogen Normal (Normal); Urine pH 6.5 (5.0 - 8.0); White Blood Count 3.9 K/mm3 (4.4-11.0)
[2021-11-28 12:51] LABS: Differential Indicated SCAN CRITERIA MET
[2021-11-28 13:00] LABS: Bacteria 1+ /hpf (None Seen); Internal QC Validated? YES +Cl - CLEAR BKGD; Pregnancy, Urine Negative Negative; Squamous Epithelial Cells - UA 0-5 SEEN /hpf (5-10); White Blood Cells 0-5 SEEN /hpf (0-5)
[2021-11-28 13:03] LABS: AST(SGOT) 58 U/L (15-37); Alanine Aminotransfer ALT/SGPT 66 U/L (13-56); Albumin, Serum 3.7 g/dL (3.2-5.0); Alkaline Phosphatase 55 U/L (45-117); Anion Gap 7 (5-15); BUN 10 mg/dL (7-18); BUN/Creat Ratio 17.2 RATIO (10-20); Bilirubin, Direct 0.15 mg/dL (0.00-0.30); Calcium,Total 9.3 mg/dL (8.5-10.1); Chloride 102 mmol/L (98-107); Creatinine, Serum 0.58 mg/dL (0.55-1.02); EST Glomerular Filtration Rate 123 mL/min (>60); Est Glom Filt Rate - Afr Amer 149 mL/min (>60); Estimated Creatinine Clearance 131.37 ml/min; Globulin 3.9 g/dL (2.2-4.2); Glucose 176 mg/dL (74-106); Lipase 53 U/L (73-393); Protein, Total 7.6 g/dL (6.4-8.2); Sodium Level 138 mmol/L (136-145)
--- NOTE | 2021-11-28 13:10 | RAD_ITS ---
STUDY: X-RAY CHEST REASON FOR EXAM: Female, 41 years old. Cough TECHNIQUE: Single AP portable view of the chest. COMPARISON: Comparison is made with prior study dated 11/03/2021. FINDINGS: The lungs are clear and expanded. There is no demonstrated pleural abnormality. Normal size heart. Normal mediastinum and leesa. Normal visualized pulmonary arteries. Normal visualized aortic arch and descending thoracic aorta. Normal visualized thoracic spine. Normal visualized ribs, clavicles, and shoulders. There is no demonstrated abnormality of the visualized soft tissue structures of the upper abdomen. RAD/Chest 1 View (Portable) IMPRESSION: Normal x-ray examination of the chest. Electronically Signed: Ismael Eubanks MD at 13:34 EDT ,
--- NOTE | 2021-11-28 13:44 | ED.VIS.GI ---
HPI HPI - GI History of Present Illness Chief Complaint: Abd Pain Informant: patient Narrative Narrative: patient reports worsening right-sided abdominal pain. She states she has been having on and off symptoms for the past 6 weeks. Reports in the ED 6 weeks ago found to have a gallstone on CT. She been trying to follow-up with her PCP and family guardian a week ago. There is an ultrasound ordered pending clearance. She states she has pain with any food she eats. She gets nauseated and she gets loose stools with meals. She ate at 6:30 AM of breakfast sandwich which did worsen her symptoms. Nausea without vomiting. Denies fevers, today noted cough symptoms. History of diabetes. Denies urinary symptoms. Patient with abnormal menstrual periods. [facility] Medical History Back pain Depression Diabetes Knee pain Pre-eclampsia, Home Medications glipizide 5 mg tablet, extended release 24 hr 5 mg PO DAILY 05/01/19 [History Last Taken Unknown] bupropion HCl 150 mg tablet,12 hr sustained-release (Wellbutrin SR) 150 mg PO DAILY 07/31/21 [History Last Taken Unknown] fluoxetine 20 mg capsule (Prozac) 20 mg PO DAILY 07/31/21 [History Last Taken Unknown] insulin glargine 100 unit/mL (3 mL) subcutaneous pen (Lantus Solostar U-100 Insulin) 40 unit subcut ONCE 07/31/21 [History Last Taken Unknown] lisinopril 10 mg tablet 10 mg PO DAILY 07/31/21 [History Last Taken Unknown] cefdinir 300 mg capsule 300 mg PO BID #14 caps 11/28/21 [Rx Last Taken Unknown] nirmatrelvir 300 mg (150 mg x2)-ritonavir 100 mg tablet,dose pack(EUA) (Paxlovid) See Rx Instructions PO .COMPLEX #30 tabs 11/28/21 [Rx Last Taken Unknown] ondansetron 4 mg disintegrating tablet 4 mg PO Q6H PRN nausea and vomiting #10 tabs 11/28/21 [Rx Last Taken Unknown] Allergy/AdvReac Type Severity Reaction Status Date / Time amoxicillin [Amoxicillin] Allergy Itching Verified 11/28/21 12:06 Family History Father Diabetes Grandmother Diabetes Hypertension Grandfather Diabetes Mother Hypertension Other Heart disease Social History Smoking Status: Current some day smoker tobacco type: cigarettes and cigars alcohol intake: never substance use type: does not use caffeine: Yes what type of physical activity do you participate in: none seatbelt use: always do you feel safe at home: Yes additional social history: Ever POLLARD ROS ED Constitutional Constitutional ED: Denies chills, fever(s) or sweats Eyes Eyes: Denies change in vision ENT ENT ED: Denies dysphagia or sore throat Cardiovascular Cardiovascular: Denies chest pain, leg edema, palpitations or racing heartbeat Respiratory/Chest Respiratory/Chest: Denies cough, dyspnea or dyspnea on exertion Gastrointestinal Gastrointestinal: Reports abdominal pain, diarrhea and nausea; Denies vomiting Genitourinary Genitourinary ED: Denies dysuria, hematuria or urinary frequency Musculoskeletal Musculoskeletal: Denies back pain, extremity pain or neck pain Integumentary Denies rash or wounds Neurologic Neurologic: Denies headache(s), paresthesias or weakness EXAM Physical Exam Const Vital Signs: 11/28/21 12:05 Temperature 98.9 F Temperature Source Temporal Pulse Rate 123 H Respiratory Rate 16 Blood Pressure 151/97 H Blood Pressure Mean 115 Pulse Ox 100 Oxygen Delivery Method Room Air Positive well nourished and well developed Constitutional Narrative: Fatigue., Nontoxic General Appearance ED: well developed and NAD HEENT Reports moist mucous membranes normocephalic and atraumatic Eyes PERRL, EOMs intact bilaterally and conjunctivae normal General Eye ED: Yes normal appearance of both eyes Neck no lymphadenopathy and supple General: Negative for tenderness Chest Wall Chest: Negative for tenderness Resp normal respiratory effort and normal air movement Effort and Inspection: symmetric chest movement; Negative for respiratory distress Cardio regular rhythm and no murmurs Rate: tachycardic Peripheral Pulses: pulses 2+ throughout GI normal to inspection, nondistended, normoactive bowel sounds GI Narrative: Right upper quadrant tenderness Palpation: Negative for guarding or rebound tenderness present Back/Spine no CVA tenderness and no thoracic nor lumbar tenderness Extremity normal to inspection General Extremety ED: Negative for edema or tenderness General Extremity: Negative for edema Neuro oriented x3 and no sensory deficits noted Sensorium / Orientation: awake and alert Skin no rashes or lesions noted and no wounds MDM MDM MDM Narrative Medical decision making narrative: Patient tender right upper quadrant no guarding or rebound. She has been having symptoms with foods concerning for colic symptoms. She has not had an ultrasound. Work-up initiated white count 3.9 lipase 53, liver enzymes slightly elevated with AST 58 ALT 66. Bilirubin normal. Ultrasound obtained noted gallbladder polyp up to 8 mm along with sludge in the gallbladder. Normal common bile duct. Patient discharged started having a cough and chills today. Chest x-ray 1 view reviewed by myself and read by radiology shows no acute process. COVID testing obtained returned positive today. She is in no respiratory distress normal pulse ox. I did discuss with on-call surgeon Dr. Ferreira, discussed patient's findings he agrees her gallbladder will need to be removed however there is no current acute cholecystitis, with her current COVID status he recommend antibiotics and following up with him in 2 weeks in the office for outpatient discussion. I discussed patient's COVID findings and offered treatment since she is on day 1 for which she agrees. She is given prescription for cefdinir, Zofran, Paxlovid. Return precautions discussed. Otherwise she will follow-up as an outpatient. Lab Data Attestation: I reviewed the patient's lab results. Labs: Laboratory Results - last 24 hr 11/28/21 11/28/21 11/28/21 12:20 12:20 12:20 WBC 3.9 L RBC 4.81 Hgb 13.0 Hct 39.5 MCV 82.1 MCH 27.0 MCHC 32.9 RDW Std Deviation 41.4 RDW Coeff of Neel 14.1 Plt Count 154 MPV 10.0 Immature Gran % (Auto) 1.000 H Neut % (Auto) 74.6 H Lymph % (Auto) 13.2 L [place] % (Auto) 9.3 Eos % (Auto) 1.6 Baso % (Auto) 0.3 Absolute Neuts (auto) 2.9 Absolute Lymphs (auto) 0.51 L Nucleated RBC % 0 Diff Path Review May foll Sodium 138 Potassium 4.0 Chloride 102 Carbon Dioxide 29.0 Anion Gap 7 BUN 10 Creatinine 0.58 Estim Creat Clear Calc 131.37 Est GFR (MDRD) Af Amer 149 Est GFR (MDRD) Non-Af 123 BUN/Creatinine Ratio 17.2 Glucose 176 H Calcium 9.3 Total Bilirubin 0.60 Direct Bilirubin 0.15 AST 58 H ALT 66 H Alkaline Phosphatase 55 Total Protein 7.6 Albumin 3.7 Globulin 3.9 Lipase 53 L Urine Color Yellow Urine Clarity Sl. Cloudy Urine pH 6.5 Ur Specific [place] 1.010 Urine Protein 15 H Urine Glucose (UA) 100 H Urine Ketones 5 H Urine Occult Blood Negative Urine Nitrite Negative Urine Bilirubin Negative Urine Urobilinogen Normal Ur Leukocyte Esterase 25 H Urine RBC 0 SEEN Urine WBC 0-5 SEEN Ur Squamous Epith Cells 0-5 SEEN Urine Bacteria 1+ Urine Mucus 0 SEEN Urine Test Negative Radiography Diagnostic Testing: Clinical Impression(s) from Imaging Studies Gallbladder Ultrasound 11/28/21 12:32 IMPRESSION: Fatty infiltration of the liver. Gallbladder polyp. Small amount of sludge is seen in the gallbladder lumen. Electronically Signed: Ismael Eubanks MD at 13:36 EDT , Chest X-Ray 11/28/21 13:10 IMPRESSION: Normal x-ray examination of the chest. Electronically Signed: Ismael Eubanks MD at 13:34 EDT , Discharge Plan Triage Chief Complaint: Abd Pain ED Provider: Noel Loaiza Dx/Rx/DC Orders Clinical Impression: Gallbladder polyp, Sludge in gallbladder, Abdominal pain, COVID-19 virus infection, History of diabetes mellitus Instructions: Coronavirus Disease 2019 (COVID-19): Caring for Yourself or Others, ED Gallstones with Biliary Colic Prescriptions: New Paxlovid (EUA) 300 mg (150 mg x 2)-100 mg tablets,dose pack See Rx Instructions .ROUTE .COMPLEX Qty: 30 0RF Rx Instructions: take TWO 150 mg tablets of nirmatrelvir with ONE 100 mg tablet of ritonavir twice daily for 5 days ondansetron 4 mg tablet,disintegrating 4 mg PO Q6H PRN (Reason: nausea and vomiting) Qty: 10 0RF cefdinir 300 mg capsule 300 mg PO BID Qty: 14 0RF No Action Lantus Solostar U-100 Insulin 100 unit/mL (3 mL) insulin pen 40 unit subcut ONCE Label Comments: Patient is unsure of insulin name bupropion HCl [Wellbutrin SR] 150 mg tablet sustained-release 12 hr 150 mg PO DAILY fluoxetine [Prozac] 20 mg capsule 20 mg PO DAILY lisinopril 10 mg tablet 10 mg PO DAILY glipizide 5 tablet 5 mg PO DAILY Primary Care Provider: Sneha Briceno Referrals: Aries Ferreira MD [Med Staff - Active Staff] - 1-2 Weeks Sneha Briceno DO [Primary Care Provider] - 1 Week Activity Restrictions/Additional Instructions: COVID-positive today. Take medications as prescribed. We have gallbladder polyp 8 mm along with sludge. Take antibiotic as prescribed. Chicot diet. Follow-up with Dr. Ferreira after 2 weeks for plan surgery. 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 Disposition Disposition: Home, Self Care Discharge Date/Time: 11/28/21 15:32
[2021-11-29 13:22] LABS: Pathologist Review Reviewed
== END 2021-11-28 15:32 | disposition home or self-care (01) ==
PROVIDERS: Emergency Provider Emergency Medicine; PCP Family Medicine; Visit Provider Emergency Medicine
DX: U07.1 COVID-19 (principal); E11.9 Type 2 diabetes mellitus without complications; Z79.4 Long term (current) use of insulin; K82.4 Cholesterolosis of gallbladder; K83.8 Other specified diseases of biliary tract; R11.0 Nausea; F17.210 Nicotine dependence, cigarettes, uncomplicated; Z79.899 Other long term (current) drug therapy
CPT/HCPCS: 71045; 76705; 80048; 80076; 81001; 81025; 83690; 85025; 87811; 96361; 96374; 96375; 99283; J7030; A4216; J2405

== ENCOUNTER 2021-12-18 09:08 | Day surgery (SDC) | payer OTHER, MEDICAID, SELFPAY ==
[2021-12-18] VITALS (11 sets, daily range): BP systolic 107–154; BP diastolic 78–99; PULSE 77–95; RESP 16; TEMP 36.3–37; O2SAT 92–97; BMI 45.1
--- NOTE | 2021-12-18 09:26 | EKG12_ITS ---
Test Reason : PRE-OP Blood Pressure : / mmHG Vent. Rate : 095 BPM Atrial Rate : 095 BPM P-R Int : 158 ms QRS Dur : 088 ms QT Int : 382 ms P-R-T Axes : 030 006 017 degrees QTc Int : 480 ms Normal sinus rhythm Prolonged QT Abnormal ECG When compared with ECG of 03-NOV-2021 06:17, No significant change was found Confirmed by TOÑO HARRIS, YOSELIN ([id number]), website/blog editor WENDY GARNICA ([id number]) on 12/20/2021 2:03:31 PM Referred By: Aries Ferreira Confirmed By:YOSELIN LUNDBERG MD
[2021-12-18] MEDS: Lactated Ringers 1,000 ML 15 ML IV (09:35)
[2021-12-18 09:57] LABS: Internal QC Validated? YES +Cl - CLEAR BKGD; Pregnancy, Urine Negative Negative
--- NOTE | 2021-12-18 10:00 | RAD_ITS ---
INDICATION: PAIN EXAMINATION/TECHNIQUE: Limited spot intraoperative films are presented for evaluation. Total Fluoroscopic Time: 13.8 seconds Number of Fluoroscopic Images: 3 Radiation dosage : 14.89 mGy COMPARISON: None. FINDINGS: 3 Spot fluoroscopic images obtained demonstrate contrast injection into the cystic duct, unremarkable opacification of the cystic duct is visualized, unremarkable opacification of the internal and extrahepatic ducts, no evidence of filling defect is visualized. There is no evidence of biliary ductal dilatation. There is free passage into the duodenum. No evidence of contrast extravasation outside the biliary tree to suggest bile duct injury. RAD/Cholangiogram/ O R,Initial IMPRESSION: Negative intraoperative cholangiogram. Electronically Signed: Jose De Jesus Lowry MD at 13:02 EDT ,
--- NOTE | 2021-12-18 10:05 | PCM.HP.BLA ---
History and Physical Date of Admission: 12/18/21 Intake Vital Signs ? 11/29/2211:05 12/10/2213:27 Height 5 ft 8 in 5 ft 8 in Weight: 275 lb 282 lb 4 oz BMI 41.8 42.9 BP 151/97 H 137/83 H Blood Pressure Location ? Rt brachial Position ? Sitting Respiration 16 17 Pulse 123 H 107 H Pulse Source ? Monitor Temp 98.9 F 97.5 F L Temp Source Temporal Temporal Pulse Oximetry (%) 100 96 Oxygen Delivery Method ? room air Intake Visit Reasons:?GALLBLADDER- ED 11/28 Chief Complaint: Gallbladder ED F/U 11/28 Registered Radiation Therapist Required: No Is patient in pain?: No Allergies amoxicillin [Amoxicillin] Allergy (Verified 12/10/21 14:28) Itching Medications glipizide 5 mg tablet, extended release 24 hr 5 mg PO DAILY 05/01/19 [History Confirmed 12/10/21] bupropion HCl 150 mg tablet,12 hr sustained-release (Wellbutrin SR) 150 mg PO DAILY 07/31/21 [History Confirmed 12/10/21] fluoxetine 20 mg capsule (Prozac) 20 mg PO DAILY 07/31/21 [History Confirmed 12/10/21] insulin glargine 100 unit/mL (3 mL) subcutaneous pen (Lantus Solostar U-100 Insulin) 40 unit subcut ONCE 07/31/21 [History Confirmed 12/10/21] lisinopril 10 mg tablet 10 mg PO DAILY 07/31/21 [History Confirmed 12/10/21] cefdinir 300 mg capsule 300 mg PO BID #14 caps 11/28/21 [Rx Confirmed 12/10/21] nirmatrelvir 300 mg (150 mg x2)-ritonavir 100 mg tablet,dose pack(EUA) (Paxlovid) See Rx Instructions PO .COMPLEX #30 tabs 11/28/21 [Rx Confirmed 12/10/21] ondansetron 4 mg disintegrating tablet 4 mg PO Q6H PRN nausea and vomiting #10 tabs 11/28/21 [Rx Confirmed 12/10/21] PFSH Medical History? Back pain Depression Diabetes Knee pain Pre-eclampsia, Family History?(Updated 12/10/21 @ 14:27 by Tracie Fonsecaday) Father Diabetes High cholesterolGrandmother Diabetes HypertensionGrandfather Diabetes Heart diseaseMother Hypertension Social History?(Updated 12/10/21 @ 14:27 by Tracie Friday) Smoking Status:? Former smoker alcohol intake:? never substance use type:? does not use caffeine:? Yes what type of physical activity do you participate in:? none seatbelt use:? always do you feel safe at home:? Yes additional social history:? Paula-Aries ? HPI HPI HPI: MIGUELITO VILLAFUERTE, is a 41 F who presents to the office today for right upper quadrant pain.? The patient was in the emergency room a week and a half ago with right upper quadrant pain that radiates to the right back.? She is having nausea but no vomiting.? She says this is worse after meals.? She had an ultrasound which showed thickened gallbladder wall and a gallstone.? She reports this happens most the time she eats and she is in a lot of pain.? She denies any fevers or chills.? The patient had COVID the same time as her emergency visit a week and a half ago. ROS General General: No weight change, appetite, fatigue, colon cancer, breast cancer or weakness HEENT HEENT: No difficulty swallowing, eye injury, eye surgery, swollen glands or hoarseness Endo Endocrine: Yes diabetes mellitus; No thyroid disease, thyroid cancer, Hair loss, heat intolerance or cold intolerance Skin Skin: No rash or changing moles Musc Musculoskeletal: No back problems or arthritis Cardio Cardiovascular: No murmur, pacemaker, heart disease, atrial fibrillation, high blood pressure, heart attack, heart stent, palpitations, shortness of breat with exertion or chest pain Psych Psychiatric: Yes depression and anxiety; No hearing voices Resp Respiratory: No shortness of breath, No sleep apnea, No cough, No COPD, No asthma, No emphysema and No wheezing Gastro Gastrointestinal: Yes abdominal pain, Yes nausea or vomiting, Yes diarrhea, No constipation, No blood in stool, No acid reflux, No hemorrhoids, No ulcers, Yes gallbladder problem and No black,tarry stools Micheal Hematologic: No blood thinners, No blood disorders, No bleeding, No anemia and No blood clots Neuro Neurologic: No system reviewed and no additional complaints, except as documented, No as per HPI, No abnormal gait, No abnormal hearing, No abnormal movements, No abnormal speech, No behavioral changes, No burning sensations, No confusion, No convulsions, No disequilibrium, No dizziness, No localized weakness, No frequent falls, No headache(s), No lack of coordination, No loss of vision, No memory loss, No numbness, No other visual disturbances, No radicular pain, No restless legs, No sensory deficit, No syncope, No tingling, No tremor(s), No weakness and No other Exam Const General: cooperative Orientation: alert and oriented x3 HENNM Head: normal to inspection Neck Neck: normal visual inspection and full ROM Chest Chest palpation & inspection: normal inspection of the chest Resp Effort & Inspection: normal respiratory effort Auscultation: clear to auscultation bilaterally Cardio Rate: regular rate Rhythm: regular rhythm GI Inspection: non-distended Palpation: soft and tender in the RUQ Skin General: no rashes or lesions noted Neuro General: patient alert and patient oriented x3 Extrem General: full ROM Psych Appearance: grossly normal Mental Status: mental status grossly normal Assessment and Plan Assessment and Plan (1) Cholelithiasis: ?Status:?Acute ?Plan: Patient is having cholelithiasis and biliary colic.? I recommended laparoscopic cholecystectomy to her and I described the procedure as well as postoperative care in detail. I discussed the procedure in detail with the patient.? I discussed the risks, benefits, and alternatives of the procedure.? I discussed the risks including but not limited to bleeding, infection, injury to surrounding organs such as the liver, bile duct, bowels.? I did discuss the possibility of having to convert to an open procedure as well as the possibility that if any injuries occurred this may necessitate further surgery at a tertiary care center. Aries Ferreira MD Pager: [facility] [address] [place] [address], [address] [place] [address] Office: I have re-examined the patient. There are no clinical changes since date of exam.
[2021-12-18 10:40] LABS: Bedside Glucose 191 mg/dL (74-106)
--- NOTE | 2021-12-18 11:00 | GALL_PTH ---
PATIENT: MIGUELITO VILLAFUERTE LOC: [facility] U#:[id number] AGE/SX: 41/F ROOM: RE12/18/[address]: Dr. Aries Ferreira MD : 1980 BED: DIS: 12/18/2021 SPEC #: [id number] RECD: 12/18/21 16:04 STATUS: AUSTYN OLIVARES #: [id number] DAVID: 12/18/21 11:[address]: Aries Ferreira DEPT: SURGICAL PATHOLOGY RECD BY: Peter Stone ENTERED: 12/19/21 07:27 SP TYPE: ARTEMIO RODAS DR: Dr. Sneha Briceno DO Tissues: Gallbladder, NOS Procedures: Surgery Specimen Level III HEADER OPERATION: Laparoscopic, Cholecystectomy with IOC PRE-OP DIAGNOSIS: Cholelithiasis TISSUE SUBMITTED: Gallbladder MICROSCOPIC DIAGNOSIS Gallbladder, cholecystectomy: Chronic cholecystitis and cholelithiasis. AM:am 12/20/2021 MICROSCOPIC DESCRIPTION Slides are reviewed. GROSS DESCRIPTION Received is one container labeled with the patient's name and designated gallbladder. The specimen consists of a gallbladder measuring 7.5cm in length and up to 2.5cm in diameter. The external surface is pink-kumar, smooth and glistening for the most part. Focally it is granular, hemorrhagic and contains cautery artifact. The gallbladder contains bile and black stones measuring 0.1 to 0.2cm in greatest dimension. The mucosa is bile-stained and without any mass lesions. The gallbladder wall measures up to 0.3cm in thickness. Electric Organ Assembler sections from the gallbladder and the cystic duct are submitted in one cassette. / SJ:cc 12/19/21 TC:3 [facility]: [id number]
[2021-12-18] MEDS: Clindamycin 900 MG/50 ML BAG 75 MG IV (11:28)
[2021-12-18] MEDS: Bupivacaine 0.25% 30 ML Vial (12:38)
--- NOTE | 2021-12-18 13:02 | PCM.OPRPT ---
Report of Operation Date of Procedure: 12/18/21 Pre-Operative Diagnosis: Cholelithiasis and biliary colic Post-Operative Diagnosis: Same Surgery/Procedure Performed:: Laparoscopic cholecystectomy with cholangiogram Specimen's removed: Gallbladder and contents Description of Procedure: Patient was brought back to the operating room and general anesthesia was induced. The abdomen was prepped and draped in usual sterile fashion. A midline incision was made superior to the umbilicus and the fascia was grasped and elevated and a Veress needle was placed into the abdomen. The abdomen was insufflated 15 mmHg and then a port was placed into the abdomen and the abdomen was inspected. Next in the epigastric region a 5 mm port was placed under direct visualization as well as 2 5 mm ports in the right upper quadrant. The midline port was then upsized to a 12 mm port. Patient was placed in steep reverse Trendelenburg position and the gallbladder was grasped. The liver appeared very fatty and easily bled with any traction. The infundibulum was located in the peritoneum was stripped. The cystic duct was identified and then using a Mariscal clamp the gallbladder was clamped and the catheter was placed into the gallbladder. Cholangiograms were performed. There is good filling of the duodenum with no filling defect and there was good proximal filling. The needle was removed and the Mariscal clamp was removed. 3 clips were placed across the cystic duct and was divided. The cystic artery was then identified and clipped with 3 clips and divided. The gallbladder was then taken off of the gallbladder fossa using electrocautery. There was inspection of the gallbladder fossa and there were no bleeding or bile leak. The gallbladder was placed into an Endo Catch bag. Next the liver bed was cauterized and then Surgicel powder was sprayed over the gallbladder fossa. The abdomen was then suctioned dry and the midline port and bag containing the gallbladder were removed. Using a Po Guerrero needle and 0 Vicryl suture the midline fascia was closed. Next the air was allowed to desufflate from the abdomen and the 5 mm ports were removed. The skin was injected with local anesthetic and closed with interrupted 4 Monocryl suture. Steri-Strips and bandages were applied. Patient was awoken taken to PACU in stable condition. Admit VTE Documentation VTE Mechan Device Prophylaxis: SCD's
--- NOTE | 2021-12-18 13:05 | DCINST_ITS ---
Discharge Instructions Procedure Gallbladder Diet Discharge Diet: Light diet - advance as tolerated Activity Discharge Activity: May Not Drive (for 2-3 days or while taking narcotic pain medications.) and - (Do not drive, work heavy equipment or sign legal documents for 24 hours.) May shower in (days): 1 Lifting Restrictions: 20 lbs for 2 weeks Additional Activity Instructions:: Pain medication may cause nausea. You should typically eat light foods as you take your pain medications. Pain medication may also cause constipation. If this is a problem for you, please discuss with your doctor. Dressing / Incision Call your doctor if your incision/area has: Continuous Slow Oozing, Sudden Increased Bleeding, Increased Pain/ Swelling, Increased Redness and Foul Smelling Discharge Call your doctor if you observe: Fever of 101 or Higher Suture Line Care: Avoid Pulling/Pushing and Avoid Pinching/Bending Remove Dressing in: 2 days Additional Dressing/Incision Instructions:: Leave operative bandaids on for 2 days. When you remove dressing, leave Steri-Strips on until your follow-up appointment, or until the Steri-Strips fall off on their own. Follow Up Care Please Follow Up With: Aries Ferreira MD When: Please call to schedule 2 week follow up appointment. [phone] Test Results: Test results from this visit will be discussed in further detail at your follow- up appointment, if applicable. Discharge Plan Admission Attending Provider: Aries Ferreira Primary Care Provider: Sneha Briceno Discharge Orders/Prescriptions Prescriptions: New oxycodone-acetaminophen [Percocet] 5-325 mg tablet 1 - 2 tab PO Q4H PRN (Reason: pain) 5 Days Qty: 30 0RF No Action Lantus Solostar U-100 Insulin 100 unit/mL (3 mL) insulin pen 60 unit subcut QHS Label Comments: Patient is unsure of insulin name lisinopril 10 mg tablet 10 mg PO DAILY glipizide 5 tablet 5 mg PO BID Referrals / Follow Up: Sneha Briceno DO [Primary Care Provider] - Disposition Disposition (needs filled in before D/C Order can be placed): Home, Self Care
[2021-12-18 15:26] LABS: Bedside Glucose 281 mg/dL (74-106)
[2021-12-18] MEDS: oxyCODONE 5 MG Tablet PO (15:56)
[2021-12-18] MEDS: Acetaminophen 325 MG Tablet PO (15:57)
== END 2021-12-18 16:41 | disposition home or self-care (01) ==
LOC: SDC 09:08 → AC 09:10
PROVIDERS: Anesthesiology; PCP Family Medicine; Referring Provider Surgery; Visit Provider Surgery
PROC: (CPT 47610; principal; 2021-12-18 10:40)
DX: K80.10 Calculus of gallbladder with chronic cholecystitis without obstruction (principal); Z79.4 Long term (current) use of insulin; E11.9 Type 2 diabetes mellitus without complications; I10 Essential (primary) hypertension; K76.0 Fatty (change of) liver, not elsewhere classified; K82.8 Other specified diseases of gallbladder; Z87.891 Personal history of nicotine dependence; Z79.899 Other long term (current) drug therapy
CPT/HCPCS: 47563; 00790; 74300; 76000; 81025; 82962; 88304; 93005; J7120; J2405

== ENCOUNTER 2022-03-01 08:31 | Emergency (ER) | payer OTHER, MEDICAID, SELFPAY ==
[2022-03-01 08:32] VITALS: BP 142/94; PULSE 97; RESP 16; TEMP 36.1; O2SAT 98; BMI 42.7
--- NOTE | 2022-03-01 08:59 | ED.VIS.LOWEX ---
HPI History of Present Illness HPI Narrative: Patient presents with left foot pain that began yesterday. Patient denies any trauma or injury. Patient states it began rather suddenly. Patient states it is mainly over the left heel. Patient describes her pain as throbbing. Patient states it is worse with standing. Patient denies any paresthesias or weakness. Patient denies any redness or swelling. Patient denies any fevers or chills. Patient denies any calf pain. Chief Complaint: Lower Extremity Injury Onset/Context/Timing Onset: Yesterday Context: Sudden Onset Timing: Continuous Quality of Pain: Throbbing Location: Left heel Worsened by: Standing Relieved by: Rest Associated Symptoms Associated Symptoms: Negative for Parasthesia, Weakness or Loss of Funtion [facility] Medical History (Updated 03/01/22 @ 10:[address] Jethro Benoit, ) Alcohol use Anxiety Back pain Chest pain Depression Dietary restriction Former smoker Hypertension Insulin dependent diabetes mellitus Knee pain Pre-eclampsia, Home Medications glipizide 5 mg tablet, extended release 24 hr 5 mg PO BID 05/01/19 [History Last Taken Unknown] insulin glargine 100 unit/mL (3 mL) subcutaneous pen (Lantus Solostar U-100 Insulin) 60 unit subcut QHS 07/31/21 [History Last Taken Unknown] lisinopril 10 mg tablet 10 mg PO DAILY 07/31/21 [History Last Taken Unknown] naproxen 500 mg tablet 500 mg PO BID PRN #20 tabs 03/01/22 [Rx Last Taken Unknown] semaglutide 0.25 mg or 0.5 mg (2 mg/1.5 mL) subcutaneous pen injector (Ozempic) 0.5 mg subcut QWEEK 03/01/22 [History Last Taken Unknown] Allergy/AdvReac Type Severity Reaction Status Date / Time amoxicillin [Amoxicillin] Allergy Itching Verified 03/01/22 08:32 Family History Father Diabetes High cholesterol Grandmother Diabetes Hypertension Grandfather Diabetes Heart disease Mother Hypertension Surgical History Hx of cholecystectomy Social History Smoking Status: Former smoker alcohol intake: never substance use type: does not use caffeine: Yes what type of physical activity do you participate in: none seatbelt use: always do you feel safe at home: Yes additional social history: Ever POLLARD ED Constitutional Constitutional ED: Denies chills or fever(s) Eyes Eyes: Denies blurry vision or change in vision ENT ENT ED: Denies rhinorrhea or sore throat Cardiovascular Cardiovascular: Denies chest pain or palpitations Respiratory/Chest Respiratory/Chest: Denies cough or dyspnea Gastrointestinal Gastrointestinal: Denies nausea or vomiting Genitourinary Genitourinary ED: Denies dysuria or hematuria Musculoskeletal Musculoskeletal: Denies back pain or neck pain Integumentary Denies abscess or rash Neurologic Neurologic: Denies headache(s) or weakness Allergic/Immunologic Allergic/Immunologic ED: Denies mouth swelling or urticaria EXAM Physical Exam Const Vital Signs: 03/01/22 08:32 Temperature 96.9 F L Temperature Source Temporal Pulse Rate 97 Respiratory Rate 16 Blood Pressure 142/94 H Blood Pressure Mean 110 Pulse Ox 98 Oxygen Delivery Method Room Air Positive well nourished, well developed and obese General Appearance ED: well developed and NAD Nutritional Appearance: obese HEENT Reports moist mucous membranes Neck full ROM Extremity Extremity Narrative: There is tenderness to palpation over the plantar aspect of the left heel. There is no edema or ecchymosis. There is no bony crepitance or step-off. There is no obvious deformity noted. There is good range of motion of the left ankle and foot. There is mild tenderness over the plantar fascia. Sensation was intact to light touch in all digits. Capillary refill was less than 2 seconds in all digits. Pedal pulses are equal bilaterally. Neuro oriented x3, CN's II-XII intact bilaterally, moves all extremities and no sensory deficits noted Sensorium / Orientation: alert Motor Exam: strength 5/5 throughout MDM MDM MDM Narrative Medical decision making narrative: X-rays of the left foot were obtained. There are 3 views. On my interpretation, there is no acute fracture. There is no dislocation. There are calcaneal spurs noted. There is no soft tissue swelling. Radiologist also interpreted the x-rays and agrees. Patient was instructed to ice and elevate the left foot. Patient was given a note for work for today. Patient was instructed to follow-up with her primary care physician in 5 to 7 days. Patient understood and was agreeable with the plan. All questions were answered. Radiography Diagnostic Testing: Clinical Impression(s) from Imaging Studies Foot X-Ray 03/01/22 09:17 IMPRESSION: Calcaneal spurs. Electronically Signed: Ismael Eubanks MD at 9:51 EDT , Discharge Plan Triage Chief Complaint: Lower Extremity Injury ED Provider: Jethro Benoit Dx/Rx/DC Orders Clinical Impression: Pain of left heel, Morbid obesity with BMI of 40.0-44.9, adult Instructions: ED Heel Spur Prescriptions: New naproxen 500 MG tablet 500 mg PO BID PRN Qty: 20 0RF No Action Lantus Solostar U-100 Insulin 100 unit/mL (3 mL) insulin pen 60 unit subcut QHS Label Comments: Patient is unsure of insulin name lisinopril 10 mg tablet 10 mg PO DAILY glipizide 5 tablet 5 mg PO BID Ozempic 0.25 mg or 0.5 mg(2 mg/1.5 mL) pen injector 0.5 mg SUBCUT QWEEK Stand Alone Forms: ED Work / School Excuse Primary Care Provider: Sneha Briceno Referrals: Sneha Briceno DO [Primary Care Provider] - 5-7 Days Disposition Disposition: Home, Self Care
--- NOTE | 2022-03-01 09:17 | RAD_ITS ---
STUDY: X-RAY - LEFT FOOT CLINICAL: Female, 41 years old. Injury/Pain TECHNIQUE: 3 view(s) of the foot. COMPARISON: None. FINDINGS: There is an enthesophyte involving the posterior superior calcaneus at the site of insertion of the Achilles tendon. Plantar spur. Normal visualized subtalar, talonavicular, calcaneocuboid, tarsal and tarsometatarsal articulations. Normal metatarsi. Normal metatarsophalangeal joint of the great toe. Normal tibial and fibular sesamoid bones. Normal interphalangeal joint of the great toe. Normal phalanges of the great toe. Normal second through fifth metatarsophalangeal joints. Normal interphalangeal joints and phalanges of the lesser toes. The soft tissue structures are unremarkable. RAD/Foot min 3 Views IMPRESSION: Calcaneal spurs. Electronically Signed: Ismael uEbanks MD at 9:51 EDT ,
== END 2022-03-01 10:48 | disposition home or self-care (01) ==
PROVIDERS: Emergency Provider Emergency Medicine; PCP Family Medicine; Visit Provider Emergency Medicine
DX: M79.672 Pain in left foot (principal); E66.01 Morbid (severe) obesity due to excess calories; Z68.41 Body mass index [BMI] 40.0-44.9, adult; E11.9 Type 2 diabetes mellitus without complications; Z79.4 Long term (current) use of insulin; M77.32 Calcaneal spur, left foot; I10 Essential (primary) hypertension; Z87.891 Personal history of nicotine dependence
CPT/HCPCS: 73630; 99282

== ENCOUNTER 2022-10-26 00:27 | Emergency (ER) | payer OTHER, MEDICAID, SELFPAY ==
[2022-10-26 00:28] VITALS: BP 131/96; PULSE 94; RESP 16; TEMP 35.9; O2SAT 98; BMI 40.8
--- NOTE | 2022-10-26 00:49 | EDS_ITS ---
HPI History of Present Illness Chief Complaint: Dental Detail of Chief Complaint: Right upper dental pain. Informant: patient Onset/Context/Timing Onset: Today and Yesterday Current Severity: Mild Maximum Severity: Mild Associated Symptoms Assocated Symptom - Dental: Negative for fever, jaw swelling, face swelling, cold sensitivity or hot sensitivity Narrative Narrative: 41-year-old female history of diabetes. Right upper dental pain. Had the pain a week ago it resolved and then returned yesterday. Denies any injury or trauma. No fever or facial swelling. Prior similar symptoms: No Recent Illness/Hospitalization: No PFSH PFSH Medical History Alcohol use Anxiety Back pain Chest pain Depression Dietary restriction Former smoker Hypertension Insulin dependent diabetes mellitus Knee pain Pre-eclampsia, Home Medications insulin glargine 100 unit/mL (3 mL) subcutaneous pen (Lantus Solostar U-100 Insulin) 60 unit subcut QHS 07/31/21 [History Last Taken Unknown] lisinopril 10 mg tablet 10 mg PO DAILY 07/31/21 [History Last Taken Unknown] bupropion HCl 150 mg 24 hr tablet, extended release 150 mg PO DAILY 10/26/22 [History Last Taken Unknown] clindamycin HCl 150 mg capsule 150 mg PO Q6H #40 caps 10/26/22 [Rx Last Taken Unknown] dulaglutide 0.75 mg/0.5 mL subcutaneous pen injector (Trulicity) 0.75 mg subcut QWEEK 10/26/22 [History Last Taken Unknown] empagliflozin 10 mg tablet (Jardiance) 10 mg DAILY 10/26/22 [History Last Taken Unknown] meloxicam 15 mg tablet 15 mg DAILY 10/26/22 [History Last Taken Unknown] Allergy/AdvReac Type Severity Reaction Status Date / Time amoxicillin [Amoxicillin] Allergy Itching Verified 03/01/22 08:32 Family History Father Diabetes High cholesterol Grandmother Diabetes Hypertension Grandfather Diabetes Heart disease Mother Hypertension Surgical History Hx of cholecystectomy Social History Smoking Status: Former smoker alcohol intake: never substance use type: does not use caffeine: Yes what type of physical activity do you participate in: none seatbelt use: always do you feel safe at home: Yes additional social history: Ever POLLARD ROS ED ROS Narrative Dental pain. No recent illness. Review of Systems ROS Unobtainable: Denies due to encephalopathy Constitutional Constitutional ED: Denies chills or fever(s) Eyes Eyes: Denies blurry vision ENT ENT ED: Denies ear pain Cardiovascular Cardiovascular: Denies chest pain Respiratory/Chest Respiratory/Chest: Denies cough Gastrointestinal Gastrointestinal: Denies abdominal pain Genitourinary Genitourinary ED: Denies dysuria Musculoskeletal Musculoskeletal: Denies arthralgias Integumentary Denies abscess Neurologic Neurologic: Denies headache(s) Psychiatric Psychiatric: Denies anxiety Endocrine Endocrinology: Denies cold intolerance Hematologic/Lymphatic Hematologic/Lymphatic: Denies easy bleeding or easy bruising Allergic/Immunologic Allergic/Immunologic ED: Denies mouth swelling EXAM Physical Exam Narrative Exam Narrative: Well-appearing 41-year-old female. Vital signs stable afebrile. H EENT exam right upper premolar minimally tender. There is no significant swelling around the gum. No abscess. No trismus. There is no significant trauma to the tooth. No obvious cavity. The jaws not swollen or tender. She can open and close her mouth on any difficulty. She has multiple areas of missing teeth. Generally the teeth she have are in good condition. Neck is nontender. No lymphadenopathy. Lungs are clear. Heart regular rhythm no murmur. Abdomen soft nontender. Otherwise exam unremarkable. Const Vital Signs: 10/26/22 00:28 Temperature 96.7 F L Temperature Source Temporal Pulse Rate 94 Respiratory Rate 16 Blood Pressure 131/96 H Blood Pressure Mean 107 Pulse Ox 98 Oxygen Delivery Method Room Air Positive well nourished and well developed; Negative for cachectic, contractures or unkempt General Appearance ED: well developed and NAD; Negative for unkempt, cachectic or contractures Nutritional Appearance: Negative for cachectic HEENT Reports TM's clear Negative for trauma or tenderness Face and Sinus: Negative for sinuses nontender Tympanic Membrane ED: Yes TM's clear Mouth ED: Yes oral and palatal mucosa normal Mouth: oral and palatal mucosa normal Teeth and Gingiva: abnormal tooth and associated gingiva; Negative for caries, gingiva abnormal, poor dentition or teeth discoloration Throat: posterior oropharynx normal Eyes PERRL and EOMs intact bilaterally Neck no lymphadenopathy, supple and no JVD General: normal visual inspection; Negative for anterior neck swelling, tenderness or submandibular swelling Lymph Lymphatic: no lymphadenopathy noted; Negative for lymphadenopathy Chest Wall inspection of chest normal and palpation of chest normal Resp normal respiratory effort, no retractions and clear to auscultation bilaterally Cardio regular rate, regular rhythm, S1 normal heart sound, S2 normal heart sound and no murmurs Jugular Venous Distention: Negative for other Palpation: Negative for palpable S3 Rate: Negative for bradycardia Rhythm: Negative for abnormal rhythm GI normal to inspection, nondistended, normoactive bowel sounds, non-tender, non- distended and no masses Inspection: Negative for other Palpation: soft Extremity normal to inspection and no joint enlargement General Extremety ED: Negative for edema or other findings General Extremity: Negative for edema or other findings Neuro oriented x3, moves all extremities and no focal motor deficits Sensorium / Orientation: alert, oriented to person, oriented to place and oriented to time Motor Exam: strength 5/5 throughout Psych mental status grossly normal Appearance: Negative for unkempt Attitude: No agitated and No other Mood & Affect: Negative for depressed, anxious or tearful Skin no rashes or lesions noted and no wounds MDM MDM MDM Narrative Medical decision making narrative: Right upper premolar dental pain. No obvious cavity. No trauma. No obvious abscess. No significant gingivitis. Patient be started on clindamycin. Follow-up with a dentist on Friday. Return if worse. Motrin and Tylenol for pain. History & Record Review Discussion w/independent historian: Patient Additional record(s) reviewed:: Prior inpatient record, Prior outpatient record, Prior ED visit, Prior labs and No prior records Discharge Plan Triage Chief Complaint: Dental ED Provider: Marquise Jeffers Dx/Rx/DC Orders Clinical Impression: Pain, dental Instructions: ED Dental Pain Prescriptions: New clindamycin HCl 150 mg capsule 150 mg PO Q6H Qty: 40 0RF No Action Lantus Solostar U-100 Insulin 100 unit/mL (3 mL) insulin pen 60 unit subcut QHS Label Comments: Patient is unsure of insulin name lisinopril 10 mg tablet 10 mg PO DAILY meloxicam 15 mg tablet 15 mg DAILY bupropion HCl 150 mg tablet extended release 24 hr 150 mg PO DAILY Jardiance 10 mg tablet 10 mg DAILY Label Comments: TAKE 1 TABLET BY MOUTH EVERY DAY Trulicity 0.75 mg/0.5 mL pen injector 0.75 mg SUBCUT QWEEK Primary Care Provider: Care Physician,No Primary Referrals: Sneha Briceno DO [Med Staff - Active Staff] - Activity Restrictions/Additional Instructions: Follow-up with a dentist as soon as possible. You may want to call your insurance and they may have specific dentists you can see through them. Motrin and Tylenol for pain. Ice to your jaw. Clindamycin 4 times a day in case there is an infection. Disposition Disposition: Home, Self Care
== END 2022-10-26 01:02 | disposition home or self-care (01) ==
PROVIDERS: Emergency Provider Emergency Medicine; Visit Provider Emergency Medicine
DX: K08.89 Other specified disorders of teeth and supporting structures (principal); E11.638 Type 2 diabetes mellitus with other oral complications; Z87.891 Personal history of nicotine dependence; I10 Essential (primary) hypertension
CPT/HCPCS: 99282